=== PATIENT | female | born 1930 | race Caucasian/White ===

== ENCOUNTER → 2016-06-12 | Outpatient (CLI) | payer MEDICARE, BC ==
[~2016-06-12] MED LIST: AZIT250T6 PO; BIOT10TA2 PO; CARSR60 PO; CHOL100062 PO; COU5 PO; IOHEXOL 300MG/ML 150 ML BTL ONE; IPRA15SP NS; LORA10TA45 PO; MAGN400T27 PO; MOME0.132 INHALATION; MONT10TA21 PO; OMEG-135 PO; POLY17PO6 PO; PRED20 PO; RESTOP4 BOTH EYES; SOD CHLORIDE 0.9% 100 ML ONE; XOP15INH INH
--- NOTE | 2016-06-12 11:05 | RADRPT ---
PROCEDURE: CT Abdomen and pelvis without contrast. CLINICAL INDICATION: PERFURATION SIGMOID COLON DIVERTICULITIS TECHNIQUE: CT scan of the abdomen and pelvis with contrast was performed on a multidetector high-r esolution CT scan. . Coronal and sagittal reformatted images were obtained from the axial source i mages. Standard CT scan of the abdomen pelvis without contrast protocols were performed. The total exam CTDI equals 5.46 mGy and the total exam DLP equals 259.37 mGy-cm. One or more of the following dose reduction techniques were used: - Automated exposure control. - Adjustment of the mA and/or kV according to patient size. Use of iterative reconstruction technique. COMPARISON: None FINDINGS: The heart is normal limits in size. There are electrodes extending to the region of the right heart . No evidence pericardial effusion. There is a tiny left basilar pleural effusion. Mild scarring at the bases. The lung bases are otherwise unremarkable. There is diffuse extensive diverticular ch anges of the colon with mild induration and wall thickening of the proximal sigmoid colon consistent with mild diverticulitis. In the left lower quadrant mesentery adjacent to the proximal sigmoid co gladys on axial images 102-107 is a small approximately 2.5 cm ill-defined area of induration consisten t with panniculitis. No fluid collection to suggest abscess. No evidence of intra-abdominal free a ir. The gallbladder is distended with numerous tiny dependent calcified gallstones. No evidence of biliary ductal dilation. The liver spleen pancreas and adrenal glands are normal in size configurat ion without focal lesions. The kidneys are normal in size without hydronephrosis or ventral masses bilaterally. The urinary bladder is contracted but otherwise unremarkable. There is atherosclerotic vascular disease of the aorta and its branches but no aneurysm. There is a mild levorotatory scoli osis lower thoracic and lumbar spine. There are moderate to severe L1 and mild L2 compression fract ures the age of which is uncertain and recommend clinical correlation. There is no evidence of retr opulsion. The bones are osteopenic. There are degenerative changes lower thoracic and lumbar spine . IMPRESSION: 1. Diffuse extensive colonic diverticulosis with findings as described above consistent with mild d iverticulitis at the proximal sigmoid colon. In addition in the left lower quadrant abdominal is a small approximately 2.5 cm region of panniculitis. 2. No evidence of intra-abdominal free air or abscesses. 3. Distended gallbladder with numerous tiny dependent calcified calculi. No gallbladder wall thick ening or biliary ductal dilation. New 4. Compression fractures of the L1 and L2 vertebral bodies the age of which is uncertain. These ma y relate to osteoporosis however recommend clinical correlation. RPTAT:AAJJ Jh Xiao Physician Date Time Electronically viewed and signed by Jh Xiao Physician on 06/12/2016 11:04 BM/
== END | disposition home or self-care (01) ==
LOC: C/S 09:41
PROVIDERS: ATTEND Internal Medicine
DX: K57.90 Diverticulosis of intestine, part unspecified, without perforation or abscess without bleeding (principal); N32.89 Other specified disorders of bladder; M48.56XG Collapsed vertebra, not elsewhere classified, lumbar region, subsequent encounter for fracture with delayed healing
CPT/HCPCS: 74176; Q9967

== ENCOUNTER 2016-08-18 12:15 | Inpatient (IN) | payer MEDICARE, BC ==
[2016-08-17 15:47] VITALS: BMI 21.9
--- NOTE | 2016-08-17 21:43 | CONS ---
DATE OF ADMISSION: 08/18/2016 DATE OF CONSULTATION: 08/18/2016 MEDICAL CONSULTATION AND PREOPERATIVE HISTORY AND PHYSICAL ADMITTING DIAGNOSIS: Perforated diverticulum to the large intestine in for elective resection by Dr Pam Gamboa. HISTORY OF PRESENT ILLNESS: The patient is an 86-year-old female with paroxysmal atrial f ibrillation, sick sinus syndrome, asthma, diverticulosis who has had a perforated diverticulum of th e large intestine for the last few months. The patient was initially admitted in April, and it wa s felt that antibiotics and time were the best approach in order to avoid colostomy. The patient un derwent 8 weeks of meropenem with reduction in her pain and resolution of any infection. The patien t had no further evidence of perforation or free gas, and the patient continued to improve with furt her care. The patient has had no further fevers, chills or night sweats. The patient did have a co lonoscopy 2 days ago in anticipation of this procedure. Was found to have severe diverticulosis but no diverticulitis and a polyp. The patient did have low grade fever shortly after the procedure, b ut currently does not have any. REVIEW OF SYSTEMS: Significant for intermittent asthma symptoms, intermittent palpitations, but no change from her baseline. No fevers, chills or night sweats. No nausea, vomiting, or diarrhea. No hematuria, dysuria, or urgency. The patient does have some mild low back pain at times. The patie nt is having some allergy symptoms. PAST MEDICAL HISTORY: Moderate persistent asthma, diverticulitis/diverticulosis with recent perfora tion of the large intestine, paroxysmal atrial fibrillation, sick sinus syndrome status post permane nt pacemaker placement, gastroesophageal reflux disease, hiatal hernia, osteoporosis, lumbar and cer vical spondylosis, allergic rhinitis, venous insufficiency, sicca syndrome. PAST SURGICAL HISTORY: Status post Roman fundoplication, status post bilateral cataract extraction s, status post permanent pacemaker placement for sick sinus syndrome, status post ventral hernia rep air, status post retinal detachment repair x2, status post radioablation . FAMILY HISTORY: Noncontributory. ALLERGIES: 1. ANAPHYLAXIS TO PENICILLIN, SULFA, TIGAN, DILAUDID, ALL NUTS. 2. MODERATE ALLERGIES TO LATEX, KETEK, CEFUROXIME, ASPIRIN, CODEINE, LEVAQUIN AND IODINE. SOCIAL HISTORY: Patient is a . 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 No tobacco, no a lcohol use. MEDICATIONS: 1. Singulair 10 mg daily. 2. Pantoprazole 40 mg daily. 3. Coumadin, but this has been on hold since Sunday. 4. Diltiazem 60 mg q.i.d. 5. Magnesium oxide 250 mg daily. 6. Hydrochlorothiazide 25 mg half a tab as needed. 7. Vitamin D3 at 2000 international units daily. 8. Xopenex inhaler as needed. 9. Alavert 10 mg daily. 10. Restasis b.i.d. to both eyes. PHYSICAL EXAMINATION: VITAL SIGNS: Blood pressure 120/60, respirations 16, weight 112.5 pounds. Temperature 97.4, oxygen saturation 96%, pulse rate 66 and regular. GENERAL: Well-developed, well-nourished female in no acute distress. SKIN: Without rashes. HEENT: EOMI, PERRLA. Oropharynx clear without exudate. NECK: No jugular venous distention, 2+ carotid upstroke with soft bruit on the right. No lymphaden opathy, no thyromegaly, no jugular venous distention. CHEST: Increased expiratory phase but no wheezes, rhonchi or rales noted. HEART: Regular rate and rhythm with no murmurs, gallops or rubs. No ectopy. No S3, no S4 gallop. ABDOMEN: Reducible ventral hernia along the incision line. The epigastric area: Reducible hernia in the right mid abdomen. No rebound. No masses. Normoactive bowel sounds. GENITOURINARY: Deferred. EXTREMITIES: No cyanosis, clubbing. There is trace bilateral lower extremity edema, 2+ pulses. NEUROLOGIC: Nonfocal. RECTAL: Deferred to GI. DIAGNOSTIC DATA: Chest x-ray shows senescent changes with chronic lung disease, but no infiltrates and several thoracolumbar compression fractures. LABORATORY EXAMINATION: White blood cell count 7.2, hemoglobin 12.5, hematocrit 38.5, platelets 240 . Sodium 143, potassium 4.9, chloride 106, bicarbonate 25, glucose 104, BUN 16, creatinine 0.5, aracelis cium 9.9, total protein 6.9, albumin 4.3, AST 15, alkaline phosphatase 79, ALT 15, total bilirubin 0 .3. Urinalysis is unremarkable. EKG shows paced atrial rhythm with no acute ischemic changes. ASSESSMENT AND PLAN: 1. Perforated diverticulum of the large intestine. The patient is to get elective surgery by Dr. Glen Gamboa. It will be attempted to do laparoscopic procedure and move to open depending on what is found. The patient is an ASA class 2 anesthesia risk secondary to comorbid illnesses that are c ontrolled. The patient may proceed with the surgery as scheduled. PT and PTT were not done last we ek as the patient had been on Coumadin up until Sunday, and her Protime was 1. Her INR was 1.1 on Sunday of this week. The patient will need routine postoperative monitoring in the hospital. 2. Paroxysmal atrial fibrillation/sick sinus syndrome with pacemaker. The patient remained stable with intermittent paced rhythm. We will continue with the patient's current medications, but hold t he Coumadin until after surgery. 3. Moderate persistent asthma. This is stable. Continue with the patient's medications. 4. Allergic rhinitis, stable. Continue with the patient's Alavert and Singulair. 5. Sicca syndrome. We will continue with patient's Restasis. 6. Gastroesophageal reflux disease, stable. Continue with diet and pantoprazole. Dictated By: NADEEM HAMILTON MD SR/XAVI Conf#: [id number] DID#: [id number]
[~2016-08-18] VITALS: Ht 162.6 cm; Wt 49.0 kg
[2016-08-18] VITALS (23 sets, daily range): BP systolic 121–159; BP diastolic 47–71; PULSE 58–91; RESP 10–29; Ht 162.6 cm; Wt 49.0 kg
[~2016-08-18 12:15] MED LIST changes: +CHOL200018 PO; +CLINDAMYCIN 600 MG/50 ML D5W IVPB IVPB ONE; +DIGO125T PO; -IOHEXOL 300MG/ML 150 ML BTL ONE; +LEVA15HF6 INH; +LIDOCAINE 2% (SDV) 5 ML INJ ONE; +LORA-52 PO; +MOME0.132 IH; +MONT5TAB12 PO; -PRED20 PO; +PRED20TA PO; +ROCURONIUM 50 MG INJ ONE; -SOD CHLORIDE 0.9% 100 ML ONE; +WARF6TAB PO; -XOP15INH INH; +[UNRECOGNIZED DRUG - OTHER] PO; +metroNIDAZOLE 500 MG/100 ML NS IVPB ONE
[2016-08-18] MEDS ORDERED: metroNIDAZOLE 500 MG/NS (PMX) 100 ML IVPB ONE (13:30)
[2016-08-18 14:19] LABS: INR 0.99; PARTIAL THROMBOPLASTIN TIME 27.3 Sec (25.0-35.0); PROTIME 13.1 Sec (12.2-14.2)
[2016-08-18] MEDS ORDERED: LIDOCAINE 1% (STERILE-PAK) 30 ML INJ ONE (16:04)
[2016-08-18] MEDS ORDERED: BUPIVACAINE 0.5%/EPI (SDV) 30 ML INJ ONE (16:04)
[2016-08-18] MEDS ORDERED: ETOMIDATE 20 MG INJ ONE (16:26)
[2016-08-18] MEDS ORDERED: MIDAZOLAM 1 MG/ML 2 ML INJ ONE (16:27)
[2016-08-18] MEDS ORDERED: ZOLPIDEM 5 MG TAB PO PRN (18:30)
[2016-08-18] MEDS ORDERED: MEPERIDINE 25 MG INJ IV PRN (18:30)
[2016-08-18] MEDS ORDERED: hydrALAzine 20 MG INJ IV PRN (18:30)
[2016-08-18] MEDS ORDERED: NALOXONE (0.4 MG/ML) INJ IV PRN (18:30)
[2016-08-18] MEDS ORDERED: ONDANSETRON 4 MG INJ IV PRN ×3 (18:30→20:00)
[2016-08-18] MEDS ORDERED: EPHEDrine SULFATE 50 MG/5 ML SYG IV PRN (18:30)
[2016-08-18] MEDS ORDERED: FENTAnyl 50 MCG/ML VIAL IV PRN ×2 (18:30)
[2016-08-18] MEDS ORDERED: morphine (1 MG/ML) 10ML SYRINGE IV PRN ×3 (18:30)
[2016-08-18] MEDS ORDERED: LABETALOL HCL 20MG INJ IV PRN (18:30)
[2016-08-18] MEDS ORDERED: DIPHENHYDRAMINE 50 MG INJ IV PRN (18:30)
[2016-08-18] MEDS ORDERED: METOCLOPRAMIDE 10 MG INJ IV PRN (18:30)
[2016-08-18] MEDS ORDERED: DEXAMETHASONE 4 MG/ML 1 ML INJ ONE (19:12)
[2016-08-18] MEDS ORDERED: ONDANSETRON 4 MG INJ ONE (19:13)
[2016-08-18] MEDS: FENTAnyl 50 MCG/ML VIAL IV PRN ×2 (20:15→20:48)
[2016-08-18] MEDS: D5W-0.45 NACL + KCL 20 MEQ 1,000 ML IV SCH (23:27)
[2016-08-18] MEDS: metroNIDAZOLE 500 MG/NS (PMX) 100 ML IVPB SCH (23:56)
[2016-08-19 00:20] VITALS: BP 153/70; PULSE 60; RESP 17
[2016-08-19] MEDS: CLINDAMYCIN 600 MG/D5W (PMX) 50 ML IVPB SCH ×4 (01:26→17:41)
[2016-08-19 06:21] LABS: ADD UMIC YES; URINE BILIRUBIN (Dip) NEGATIVE (NEGATIVE); URINE BLOOD (Dip) 1+ (NEGATIVE); URINE COLOR LT. YELLOW (YELLOW); URINE GLUCOSE (Dip) NEGATIVE (NEGATIVE); URINE KETONES (Dip) 3+ (NEGATIVE); URINE LEUKOCYTE ESTERASE (Dip) TRACE (NEGATIVE); URINE NITRITE (Dip) NEGATIVE (NEGATIVE); URINE TOTAL PROTEIN (Dip) NEGATIVE (NEGATIVE); URINE UROBILINOGEN (Dip) 0.2 E.U./dL (0.1-1.0)
[2016-08-19 06:22] LABS: ADD SCAN DIFF NO
[2016-08-19] MEDS: PANTOPRAZOLE (EC) 40 MG TAB PO SCH ×2 (06:35→06:42)
[2016-08-19] MEDS: ENOXAPARIN 40 MG/0.4 ML SYG SC SCH (06:36)
[2016-08-19] MEDS ORDERED: VITAMIN A & D 5 GM OINT PACKET TOP ONE (06:37)
[2016-08-19 06:58] LABS: CALCIUM 9.5 mg/dl (8.4-10.2); CREATININE 0.47 mg/dl (0.44-1.00); POTASSIUM 4.3 mmol/L (3.5-5.1)
[2016-08-19 07:17] LABS: BACTERIA,URINE RARE; URINE RBCS 0-2 /HPF (0)
[2016-08-19] MEDS: metroNIDAZOLE 500 MG/NS (PMX) 100 ML IVPB SCH ×2 (07:46→14:33)
[2016-08-19 08:03] VITALS: BP 149/66; RESP 16
[2016-08-19] MEDS: D5W-0.45 NACL + KCL 20 MEQ 1,000 ML IV SCH (09:11)
[2016-08-19 10:49] LABS: HEMOGLOBIN 12.4 g/dl (12.0-16.0); LYMPHOCYTES # 0.7 10^3/ul (0.8-2.9); LYMPHOCYTES % 5.3 % (15.0-51.0); MEAN CORPUSCULAR HEMOGLOBIN 29.7 pg (29.0-33.0); MEAN CORPUSCULAR HGB CONC 32.6 g/dl (32.0-37.0); MEAN CORPUSCULAR VOLUME 91.1 fl (82.0-101.0); MEAN PLATELET VOLUME 10.4 fl (7.4-10.4); MONOCYTE # 0.5 10^3/ul (0.3-0.9); MONOCYTES % 3.6 % (0.0-11.0); NEUTROPHIL # 11.4 10^3/ul (1.6-7.5); NEUTROPHILS % 90.6 % (39.0-77.0); PLATELET COUNT 183 10^3/UL (140-415); RED BLOOD COUNT 4.17 10^6/ul (4.20-5.40); WHITE BLOOD COUNT 12.6 10^3/ul (4.8-10.8)
[2016-08-19] MEDS ORDERED: ACETAMINOPHEN 325 MG TAB PO PRN (11:30)
--- NOTE | 2016-08-19 12:17 | HP ---
DATE OF ADMISSION: 08/18/2016 SUBJECTIVE: The patient is status post laparoscopic partial resection of bowel. Patient is awake, alert, in minimal pain, tolerating mild clear liquid diet at this time. No nausea. VITAL SIGNS: Temperature 97.7, pulse 69, respirations 16, blood pressure is 149/66, pulse ox 100% o n room air. HEENT: Normocephalic, atraumatic. EYES: Pupils equal, round, react to light and accommodation. CARDIOVASCULAR: Regular rate and rhythm. LUNGS: Clear to auscultation bilaterally. ABDOMEN: Mild pain to palpation on the right upper and lower quadrant. No rebound tenderness. Dec reased bowel sounds. ASSESSMENT AND PLAN: 1. Perforated diverticulum with a large intestine laparoscopic resection, did very well. The patie nt has minimal pain. Patient is to try to ambulate with help today. 2. Paroxysmal atrial fibrillation, sick sinus syndrome with pacemaker. Patient normally is on Coum robert. At this time she is on Lovenox. We will restart her Coumadin tomorrow. 3. Persistent asthma, currently asymptomatic. We will restart her Xopenex at this time and patient may keep the inhaler at her bedside. LABORATORY TESTS: Creatinine 0.47 and BUN is at 8. CBC pending. Dictated By: RADHA GONZALEZ/XAVI Conf#: [id number] DID#: [id number]
[2016-08-19] MEDS: DILTIAZEM 30 MG TAB PO SCH ×3 (14:32→20:43)
[2016-08-19 14:34] VITALS: BP 145/64; PULSE 62; RESP 18
[2016-08-19] MEDS: ACETAMINOPHEN 650MG/20.3ML CUP PO PRN (14:39)
[2016-08-19] MEDS: LEVALBUTEROL (HFA) 15 GM INHALER INH SCH (16:51)
[2016-08-19 17:36] VITALS: BP 145/100; PULSE 62
--- NOTE | 2016-08-19 18:03 | PN ---
Date/Time of Note Date/Time of Note DATE: 08/19/16 TIME: 18:00 Assessment/Plan Lines/Catheters IV Catheter Type (from [facility]): Peripheral IV Simons in Place (from [facility]): No Assessment/Plan Chief Complaint/Hosp Course 1. Microperforated diverticulitis hx with mills diverticulosis s/p lap low anterior resection 08/18 -oob/ambulate -chew gum -liquids 2. Anemia without evidence of acute blood loss -Monitor 3. Paroxysmal atrial fibrillation currently in sinus. -Optimize electrolytes 4. GERD -Diet and lifestyle optimization -PPI 5. Asthma -Medical optimization 6. Hypertension -Nutrition and medication optimization 7. Back pain with Vertebral compression fracture -Physical therapy -Pain control 8. History of sick sinus syndrome status post pacemaker -Cardiac optimization 9. Paralytic ileus. Improving. -oob/ambulate -chew gum Thank you, Problems: Subjective 24 Hr Interval Summary s/p Lap LAR 08/18. Min pain. No f/c. No n/v. No cp/sob. No cough. No steiner/ dizzy/visual or neuro changes. Simons removed with +leukocyte esterase. Flatus. Exam/Review of Systems Vital Signs Vitals Vital Signs Date Time Temp Pulse Resp B/P Pulse Ox O2 Delivery O2 Flow Rate FiO2 08/19/16 17:36 62 145/100 08/19/16 14:34 97.8 18 98 Room Air 08/19/16 08:00 2.0 Intake and Output 08/18/16 08/18/16 08/19/16 15:00 23:00 07:00 Intake Total 690 ml Output Total 200 ml 980 ml Balance -200 ml -290 ml Exam Free Text/Dictation Constitutional: alert, oriented, No distress Psych: anxiety, No confusion Head: atraumatic, normocephalic Eyes: EOMI, PERRL, nl conjunctiva, No icteric ENMT: mucosa pink and moist, nl external ears & nose, nl lips & teeth Neck: non-tender, No jvd Respiratory: normal air movement, No congested cough, No labored breathing Cardiovascular: regular rate and rhythm, No edema Gastrointestinal: soft, minimal tenderness without rebound or guarding, not rigid Musculoskeletal: nl extremities to inspection, nl gait and stance, No joint tenderness Extremities: normal pulses, No calf tenderness, No cyanosis, No edema Neurological: nl mental status, nl speech, nl strength Skin: nl turgor, No diaphoresis, No rash or lesions Lymph: nl lymph nodes Results Result Diagram: 08/19/16 0448 08/19/16 0448 KARRIE WEST MD Aug 19, 2016 18:03 KARRIE WEST MD Aug 19, 2016 18:03
[2016-08-19 19:05] VITALS: BP 129/60; RESP 18
[2016-08-19] MEDS: MOMETASONE 0.24 GM INHALER INH SCH (20:43)
[2016-08-19] MEDS: MONTELUKAST 10 MG TAB PO SCH (20:43)
[2016-08-20] MEDS: D5W-0.45 NACL + KCL 20 MEQ 1,000 ML IV SCH ×2 (01:41→11:51)
[2016-08-20] MEDS: CLINDAMYCIN 600 MG/D5W (PMX) 50 ML IVPB SCH ×4 (01:46→18:10)
[2016-08-20] MEDS: ACETAMINOPHEN 650MG/20.3ML CUP PO PRN ×2 (04:04→16:49)
[2016-08-20] MEDS: ENOXAPARIN 40 MG/0.4 ML SYG SC SCH (06:34)
[2016-08-20] MEDS: PANTOPRAZOLE (EC) 40 MG TAB PO SCH (06:36)
[2016-08-20 08:05] VITALS: BP 138/61; RESP 16
[2016-08-20] MEDS: LEVALBUTEROL (HFA) 15 GM INHALER INH SCH ×3 (09:11→16:49)
[2016-08-20] MEDS: MOMETASONE 0.24 GM INHALER INH SCH ×2 (09:11→21:55)
[2016-08-20] MEDS: DILTIAZEM 30 MG TAB PO SCH ×4 (09:12→21:54)
[2016-08-20] MEDS: LORATADINE 10 MG TAB PO SCH (12:52)
[2016-08-20 20:16] VITALS: BP 116/56; RESP 20
[2016-08-20] MEDS: MONTELUKAST 10 MG TAB PO SCH (21:54)
[2016-08-20] MEDS: FLUTICASONE 0.05% 16 GM NAS SPRAY NASAL SCH (21:55)
[2016-08-21] MEDS: LEVALBUTEROL (HFA) 15 GM INHALER INH SCH ×4 (01:19→16:00)
[2016-08-21] MEDS: ACETAMINOPHEN 650MG/20.3ML CUP PO PRN ×2 (01:30→10:18)
[2016-08-21 05:18] LABS: ADD SCAN DIFF NO
[2016-08-21 05:32] LABS: BASOPHILS % 0.3 % (0.0-2.0); EOSINOPHILS % 0.3 % (0.0-7.0); HEMATOCRIT 34.4 % (37.0-47.0); HEMOGLOBIN 11.2 g/dl (12.0-16.0); LYMPHOCYTES # 2.4 10^3/ul (0.8-2.9); LYMPHOCYTES % 27.3 % (15.0-51.0); MEAN CORPUSCULAR HEMOGLOBIN 29.2 pg (29.0-33.0); MEAN CORPUSCULAR HGB CONC 32.6 g/dl (32.0-37.0); MEAN CORPUSCULAR VOLUME 89.6 fl (82.0-101.0); MEAN PLATELET VOLUME 10.7 fl (7.4-10.4); MONOCYTE # 0.9 10^3/ul (0.3-0.9); MONOCYTES % 9.7 % (0.0-11.0); NEUTROPHIL # 5.4 10^3/ul (1.6-7.5); NEUTROPHILS % 62.1 % (39.0-77.0); PLATELET COUNT 183 10^3/UL (140-415); RED BLOOD COUNT 3.84 10^6/ul (4.20-5.40); RED CELL DISTRIBUTION WIDTH 14.7 % (11.5-14.5); WHITE BLOOD COUNT 8.8 10^3/ul (4.8-10.8)
[2016-08-21 05:50] LABS: POTASSIUM 3.5 mmol/L (3.5-5.1)
[2016-08-21 05:53] LABS: CREATININE 0.5 mg/dl (0.44-1.00)
[2016-08-21 05:54] LABS: CALCIUM 9.4 mg/dl (8.4-10.2)
[2016-08-21] MEDS: PANTOPRAZOLE (EC) 40 MG TAB PO SCH (06:32)
[2016-08-21] MEDS: ENOXAPARIN 40 MG/0.4 ML SYG SC SCH (06:36)
[2016-08-21 07:39] VITALS: BP 140/65; RESP 18
--- NOTE | 2016-08-21 09:56 | PN ---
Date/Time of Note Date/Time of Note DATE: 08/20/16 TIME: 19:55 Assessment/Plan Lines/Catheters IV Catheter Type (from Nrs): Saline Lock Simons in Place (from Nrs): No Assessment/Plan Chief Complaint/Hosp Course 1. Microperforated diverticulitis hx with mills diverticulosis s/p lap low anterior resection 08/18 -oob/ambulate -chew gum -liquids 2. Anemia without evidence of acute blood loss -Monitor 3. Paroxysmal atrial fibrillation currently in sinus. -Optimize electrolytes 4. GERD -Diet and lifestyle optimization -PPI 5. Asthma -Medical optimization 6. Hypertension -Nutrition and medication optimization 7. Back pain with Vertebral compression fracture -Physical therapy -Pain control 8. History of sick sinus syndrome status post pacemaker -Cardiac optimization 9. Paralytic ileus. Improving. -oob/ambulate -chew gum -advance diet as tolerated Thank you, Late entry 08/20 Problems: Subjective 24 Hr Interval Summary Min pain. No f/c. No n/v. No cp/sob. No cough. No steiner/dizzy/visual or neuro changes. Lots of Flatus. Exam/Review of Systems Vital Signs Vitals Vital Signs Date Time Temp Pulse Resp B/P Pulse Ox O2 Delivery O2 Flow Rate FiO2 08/21/16 07:39 97.9 64 18 140/65 98 08/19/16 14:34 Room Air 08/19/16 08:00 2.0 Intake and Output 08/20/16 08/20/16 08/21/16 15:00 23:00 07:00 Intake Total 850 ml 570 ml 400 ml Output Total 900 ml 920 ml Balance 850 ml -330 ml -520 ml Exam Free Text/Dictation Constitutional: alert, oriented, No distress Psych: anxiety, No confusion Head: atraumatic, normocephalic Eyes: EOMI, PERRL, nl conjunctiva, No icteric ENMT: mucosa pink and moist, nl external ears & nose, nl lips & teeth Neck: non-tender, No jvd Respiratory: normal air movement, No congested cough, No labored breathing Cardiovascular: regular rate and rhythm, No edema Gastrointestinal: soft, minimal tenderness without rebound or guarding, not rigid Musculoskeletal: nl extremities to inspection, nl gait and stance, No joint tenderness Extremities: normal pulses, No calf tenderness, No cyanosis, No edema Neurological: nl mental status, nl speech, nl strength Skin: nl turgor, No diaphoresis, No rash or lesions Lymph: nl lymph nodes Results Result Diagram: 08/21/16 0501 08/21/16 0501 KARRIE WEST MD August 21, 2016 09:56
--- NOTE | 2016-08-21 09:58 | PN ---
Date/Time of Note Date/Time of Note DATE: 08/21/16 TIME: 09:56 Assessment/Plan Lines/Catheters IV Catheter Type (from Nrs): Saline Lock Simons in Place (from Nrs): No Assessment/Plan Chief Complaint/Hosp Course 1. Microperforated diverticulitis hx with mills diverticulosis s/p lap low anterior resection 08/18 -oob/ambulate -chew gum -soft diet -dc planning per medical team ok from surgical standpoint 2. Anemia without evidence of acute blood loss -Monitor 3. Paroxysmal atrial fibrillation currently in sinus. -Optimize electrolytes 4. GERD -Diet and lifestyle optimization -PPI 5. Asthma -Medical optimization 6. Hypertension -Nutrition and medication optimization 7. Back pain with Vertebral compression fracture -Physical therapy -Pain control -Ice pack to abdominal wall prn pain/swelling. 8. History of sick sinus syndrome status post pacemaker -Cardiac optimization 9. Paralytic ileus. Improving. -oob/ambulate -chew gum -advance diet as tolerated Thank you, Problems: Subjective 24 Hr Interval Summary Lots of flatus. Min pain. No f/c. No n/v. No cp/sob. No cough. No steiner/dizzy /visual or neuro changes. Exam/Review of Systems Vital Signs Vitals Vital Signs Date Time Temp Pulse Resp B/P Pulse Ox O2 Delivery O2 Flow Rate FiO2 08/21/16 07:39 97.9 64 18 140/65 98 08/19/16 14:34 Room Air 08/19/16 08:00 2.0 Intake and Output 08/20/16 08/20/16 08/21/16 15:00 23:00 07:00 Intake Total 850 ml 570 ml 400 ml Output Total 900 ml 920 ml Balance 850 ml -330 ml -520 ml Exam Free Text/Dictation Constitutional: alert, oriented, No distress Psych: anxiety, No confusion Head: atraumatic, normocephalic Eyes: EOMI, PERRL, nl conjunctiva, No icteric ENMT: mucosa pink and moist, nl external ears & nose, nl lips & teeth Neck: non-tender, No jvd Respiratory: normal air movement, No congested cough, No labored breathing Cardiovascular: regular rate and rhythm, No edema Gastrointestinal: soft, minimal tenderness without rebound or guarding, not rigid Musculoskeletal: nl extremities to inspection, nl gait and stance, No joint tenderness Extremities: normal pulses, No calf tenderness, No cyanosis, No edema Neurological: nl mental status, nl speech, nl strength Skin: nl turgor, No diaphoresis, No rash or lesions Lymph: nl lymph nodes Results Result Diagram: 08/21/16 0501 08/21/16 0501 KARRIE WEST MD August 21, 2016 09:58
[2016-08-21] MEDS: MOMETASONE 0.24 GM INHALER INH SCH ×2 (10:19→21:38)
[2016-08-21] MEDS: FLUTICASONE 0.05% 16 GM NAS SPRAY NASAL SCH ×2 (10:21→21:39)
[2016-08-21] MEDS: DILTIAZEM 30 MG TAB PO SCH ×4 (10:22→21:39)
[2016-08-21] MEDS: LORATADINE 10 MG TAB PO SCH (10:22)
[2016-08-21] MEDS: morphine 2 MG INJ IV PRN (13:48)
--- NOTE | 2016-08-21 15:12 | HPN ---
Date/Time of Note Date/Time of Note DATE: 08/18/16 TIME: 16:12 Interval H&P Admission Note Pt. seen H&P reviewed: No system changes KARRIE WEST MD Aug 18, 2016 16:12
--- NOTE | 2016-08-21 15:13 | OPR ---
Date/Time of Note Date/Time of Note DATE: 08/18/16 TIME: 20:07 Operative Report Procedure Date: Aug 18, 2016 Preoperative Diagnosis Pancolonic diverticulosis with history of diverticulitis in microperforation of the left side Postoperative Diagnosis Same Operation Performed 1. Laparoscopic sigmoid and low anterior resection 2. Laparoscopic mobilization of splenic flexure 3. Rigid sigmoidoscopy 4. Local anesthetic [place], [id number] 5. Laparoscopic guided bilateral transversus abdominis plane block Surgeon: KARRIE WEST MD Anesthesia: general (Plus local plus regional) Anesthesiologist: MICHELINE OGDEN Estimated Blood Loss: 0 - 10 ml's Specimens Left colon with suture proximal Tubes/Drains None Complications: None Pt Condition Post Procedure: stable Disposition: PACU Indications History of perforated diverticulitis here for elective left colon resection. Risks include but are not limited to bleeding, infection, abscess, seroma, leak , damage to intestines or any intra-abdominal/intrapelvic structures, hernia formation, chronic pain, need for re-operations or further surgeries, NV, stroke , PE, DVT, pneumonia, organ failures, or even . Also risk of recurrent diverticulitis with perforation. Operative\Procedure Findings Adhesions of omentum and bowel to anterior abdominal wall through her previous incision. Pancolonic diverticulosis. Right lower quadrant hernia. Right femoral hernia Left inguinal hernia Left upper quadrant hernia could not be easily identified since there was adhesions of bowel and omentum to that site. Procedure Description Patient was brought into the operating room, placed supine on the operating table, SCDs were placed, right arm was tucked, all pressure points were well- padded, preoperative antibiotics administered, and after induction of anesthesia , patient was placed in the lithotomy. Simons was inserted. Patient was then prepped and draped in usual sterile fashion, and timeout was performed. Incision was made in the right upper quadrant, and using an Optiview port and 5 mm 0 scope abdomen was safely entered and insufflated to 15 mmHg with CO2. Laparoscopy was performed and no injuries were identified. There was adhesions of omentum and bowel to the anterior abdominal wall superiorly at site of previous incision and mesh. Under direct visualization another 5 mm port was placed in the right lower quadrant a 12 mm port was placed in the right lower lateral quadrant. Eventually GelPort in quadrant. Patient was placed in Trendelenburg and left side up. Using LigaSure and scissor colon was mobilized off of the left lateral wall in the avascular plane fully mobilizing the left colon the sigmoid and the upper rectum. The medial mesentery was opened and the left colon, sigmoid and the upper rectum beyond the peritoneal reflection. There was mills colonic diverticulosis. However the area of most inflammatory changes were is identified. The mesentery was sequentially taken using LigaSure with complete hemostasis. The colon proximal and distal to the most abnormal area was transected with Endo DARREN echelon 60 mm blue staplers. After full resection of the diseased segment of the sigmoid and the left colon below the peritoneal reflection suture was placed on the proximal colon. The resected colon was exteriorized and sent to pathology. To allow easy reach of the proximal colon into the rectum splenic mobilization was performed with ligature taking the left colon and the splenic flexure off of the spleen and greater omentum. This gave us extra reach. The proximal colon was exteriorized through the GelPort and the pursestring device was used to place a pursestring suture. EEA anvil 29 size was placed in the proximal colon and secured safely. The proximal colon and anvil were placed back in the abdomen GelPort applied and abdomen was reinsufflated. EEA stapler was placed through the rectum into the rectal stump after sizers were used. Circular staple anastomosis was created after the animal was attached to the stapler. Full doughnuts were identified and sent to pathology. The colon was not twisted. There was complete hemostasis. Saline was instilled into the pelvis covering the anastomosis and the colon was clamped proximally. Rigid sigmoidoscopy was performed up to the anastomosis and no bleeding was identified. There was no leak of air through the anastomosis with good distention of the bowel under saline. This will rigid sigmoidoscopy was removed and the saline was suctioned out. 12 mm port fascia was closed with Endo Close and 0 Vicryl in a [id number] manner. Candido retractor was removed wound was irrigated and the fascial defect was closed with interrupted oh Vicryls in a [id number] manner with Endo Close. Ports and CO2 were removed under direct visualization, wounds were fully irrigated, and skin was closed in subcuticular fashion using 4-0 Monocryl. The right lower quadrant incision was closed in multiple layers. After the fascial closer there was an interrupted subcutaneous 2-0 Vicryl closures followed by 4-0 Monocryl subcuticular. Dermabond was applied. All counts were correct and the end of the operation 2. Patient was extubated and transferred to recovery room in stable condition. Copies To: CC: ISMA CABEZAS MD; NADEEM HAMILTON MD- KARRIE WEST MD Aug 18, 2016 20:09
--- NOTE | 2016-08-21 16:32 | PN ---
DATE: 08/21/2016 SUBJECTIVE: The patient complains of some abdominal pain, but otherwise is feeling well. OBJECTIVE VITAL SIGNS: Temperature 97.9, pulse 64 and regular, respirations 18, blood pressure 140/65, oxygen saturation 98% on room air. GENERAL: Well-developed, well-nourished female in no acute distress, lying in bed. SKIN: Without rashes. CHEST: Clear to auscultation bilaterally, otherwise clear. HEART: Regular rate and rhythm. No ectopy. ABDOMEN: Decreased bowel sounds. Soft, nondistended, moderate tenderness along the larger incision in the left mid abdomen with minimal erythema, no drainage. NEUROLOGIC: Nonfocal. EXTREMITIES: No cyanosis, clubbing or edema. LABORATORY DATA: White blood cell count 8.8, hemoglobin 11.2, hematocrit 34.4, platelets 183. Sodi um 140, potassium 3.5, chloride 108, bicarbonate 23, BUN of 6, creatinine 0.5, glucose 85, calcium 9 .4. IMPRESSION AND PLAN: 1. Status post laparoscopic partial colectomy for perforated diverticulitis. Patient is doing well and tolerating her diet. We will continue with p.r.n. pain medications, ambulation and advancing d iet. 2. Asthma, stable. Continue with medications. 3. Paroxysmal atrial fibrillation. Stable. We will restart patient's Coumadin and continue Loveno x for now. Dictated By: NADEEM HAMILTON MD, SR/XAVI Conf#: [id number] DID#: [id number]
[2016-08-21] MEDS ORDERED: WARFARIN 5 MG TAB NGT ONE (17:00)
[2016-08-21 19:43] VITALS: BP 125/62; RESP 16
[2016-08-21] MEDS: MONTELUKAST 10 MG TAB PO SCH (21:39)
[2016-08-22] MEDS: morphine 2 MG INJ IV PRN (01:07)
[2016-08-22 05:37] LABS: ADD SCAN DIFF NO
[2016-08-22 05:42] LABS: BASOPHILS % 0.4 % (0.0-2.0); EOSINOPHILS # 0.2 10^3/ul (0.0-0.5); EOSINOPHILS % 2.2 % (0.0-7.0); HEMOGLOBIN 10.9 g/dl (12.0-16.0); LYMPHOCYTES # 2.2 10^3/ul (0.8-2.9); LYMPHOCYTES % 32.5 % (15.0-51.0); MEAN CORPUSCULAR HEMOGLOBIN 29.3 pg (29.0-33.0); MEAN CORPUSCULAR HGB CONC 32.1 g/dl (32.0-37.0); MEAN CORPUSCULAR VOLUME 91.4 fl (82.0-101.0); MEAN PLATELET VOLUME 11.1 fl (7.4-10.4); MONOCYTE # 0.6 10^3/ul (0.3-0.9); MONOCYTES % 9.3 % (0.0-11.0); NEUTROPHIL # 3.8 10^3/ul (1.6-7.5); NEUTROPHILS % 55.2 % (39.0-77.0); PLATELET COUNT 181 10^3/UL (140-415); RED BLOOD COUNT 3.72 10^6/ul (4.20-5.40); RED CELL DISTRIBUTION WIDTH 14.9 % (11.5-14.5); WHITE BLOOD COUNT 6.9 10^3/ul (4.8-10.8)
[2016-08-22 06:03] LABS: INR 1.07; PROTIME 13.9 Sec (12.2-14.2); PT RATIO 1.1
[2016-08-22 06:15] LABS: CALCIUM 9.5 mg/dl (8.4-10.2); CREATININE 0.48 mg/dl (0.44-1.00); MAGNESIUM 1.9 mg/dl (1.7-2.5)
[2016-08-22] MEDS: PANTOPRAZOLE (EC) 40 MG TAB PO SCH (06:24)
[2016-08-22] MEDS: ENOXAPARIN 40 MG/0.4 ML SYG SC SCH (06:26)
[2016-08-22 08:30] VITALS: BP 150/68; RESP 18
[2016-08-22] MEDS: DILTIAZEM 30 MG TAB PO SCH ×4 (09:02→22:14)
[2016-08-22] MEDS: LORATADINE 10 MG TAB PO SCH (09:03)
[2016-08-22] MEDS: FLUTICASONE 0.05% 16 GM NAS SPRAY NASAL SCH ×2 (09:03→22:13)
[2016-08-22] MEDS: MOMETASONE 0.24 GM INHALER INH SCH ×2 (09:03→22:13)
[2016-08-22] MEDS: LEVALBUTEROL (HFA) 15 GM INHALER INH SCH ×3 (09:03→16:00)
--- NOTE | 2016-08-22 10:44 | PN ---
DATE: 08/22/2016 MEDICAL PROGRESS NOTE SUBJECTIVE: The patient is feeling better, less abdominal pain. Good appetite. Passing gas, but n o bowel movement. OBJECTIVE: VITAL SIGNS: Temperature 98.0, pulse 62 and regular, respirations 18, blood pressure 150/68, oxygen saturation 97% on room air. GENERAL: Well-developed, well-nourished female in no acute distress, sitting in a chair. LUNGS: Clear to auscultation bilaterally. HEART: Regular rate and rhythm. No ectopy. ABDOMEN: Positive bowel sounds, nondistended. Mild to moderate tenderness at the left mid abdomen incision, minimal erythema, no drainage. EXTREMITIES: No cyanosis, clubbing or edema. NEUROLOGIC: Nonfocal. LABORATORY DATA: White blood cell count 6.9, hemoglobin 10.9, hematocrit 34, platelets 181. INR 1. 07. Sodium 138, potassium 4.0, chloride 110, bicarbonate 25, BUN of 8, creatinine 0.48, blood sugar 88, magnesium 1.9, calcium 9.5. ASSESSMENT AND PLAN 1. Status post laparoscopic partial colectomy for diverticulitis with perforation. The patient con tinues to do well and will continue with diet, ambulation and analgesics. 2. Paroxysmal atrial fibrillation, remains stable. We will give 7.5 mg of Coumadin today and follo w the INR. 3. Asthma remains stable. Continue her medications and p.r.n. Xopenex. 4. Allergic rhinitis. Continue the patient's medications. 5. Sicca syndrome. We will continue patient's Restasis. 6. Gastroesophageal reflux disease. We will continue the patient's medications. Dictated By: NADEEM HAMILTON MD, SR/XAVI Conf#: [id number] DID#: [id number]
--- NOTE | 2016-08-22 16:49 | PN ---
Date/Time of Note Date/Time of Note DATE: 08/22/16 TIME: 16:48 Assessment/Plan Lines/Catheters IV Catheter Type (from Nrsg): Saline Lock Simons in Place (from Nrsg): No Assessment/Plan Chief Complaint/Hosp Course 1. Microperforated diverticulitis hx with mills diverticulosis s/p lap low anterior resection 08/18 -oob/ambulate -chew gum -soft diet -dc planning per medical team ok from surgical standpoint 2. Anemia without evidence of acute blood loss -Monitor 3. Paroxysmal atrial fibrillation currently in sinus. -Optimize electrolytes 4. GERD -Diet and lifestyle optimization -PPI 5. Asthma -Medical optimization 6. Hypertension -Nutrition and medication optimization 7. Back pain with Vertebral compression fracture -Physical therapy -Pain control -Ice pack to abdominal wall prn pain/swelling. 8. History of sick sinus syndrome status post pacemaker -Cardiac optimization 9. Paralytic ileus. Improving. -oob/ambulate -chew gum -advance diet as tolerated Thank you, Problems: Subjective 24 Hr Interval Summary Bowel function. Min pain. No f/c. No n/v. No cp/sob. No cough. No steiner/dizzy /visual or neuro changes. Exam/Review of Systems Vital Signs Vitals Vital Signs Date Time Temp Pulse Resp B/P Pulse Ox O2 Delivery O2 Flow Rate FiO2 08/22/16 08:30 98.0 62 18 150/68 97 08/19/16 14:34 Room Air 08/19/16 08:00 2.0 Intake and Output 08/21/16 08/21/16 08/22/16 15:00 23:00 07:00 Intake Total 700 ml 400 ml Output Total 650 ml Balance 700 ml -250 ml Exam Free Text/Dictation Constitutional: alert, oriented, No distress Psych: anxiety, No confusion Head: atraumatic, normocephalic Eyes: EOMI, PERRL, nl conjunctiva, No icteric ENMT: mucosa pink and moist, nl external ears & nose, nl lips & teeth Neck: non-tender, No jvd Respiratory: normal air movement, No congested cough, No labored breathing Cardiovascular: regular rate and rhythm, No edema Gastrointestinal: soft, minimal tenderness without rebound or guarding, not rigid Musculoskeletal: nl extremities to inspection, nl gait and stance, No joint tenderness Extremities: normal pulses, No calf tenderness, No cyanosis, No edema Neurological: nl mental status, nl speech, nl strength Skin: nl turgor, No diaphoresis, No rash or lesions Lymph: nl lymph nodes Results Result Diagram: 08/22/16 0435 08/22/16 0435 KARRIE WEST MD August 22, 2016 16:48
[2016-08-22] MEDS ORDERED: WARFARIN 7.5 MG TAB GTB ONE (17:00)
[2016-08-22 18:39] VITALS: BP 119/57; PULSE 63
[2016-08-22 21:25] VITALS: BP 127/60; RESP 20
[2016-08-22] MEDS: ACETAMINOPHEN 650MG/20.3ML CUP PO PRN (22:13)
[2016-08-22] MEDS: MONTELUKAST 10 MG TAB PO SCH (22:13)
[2016-08-23 05:27] LABS: ADD SCAN DIFF NO
[2016-08-23 05:46] LABS: INR 1.16; PROTIME 14.9 Sec (12.2-14.2); PT RATIO 1.2
[2016-08-23 05:53] LABS: POTASSIUM 3.9 mmol/L (3.5-5.1)
[2016-08-23 05:55] LABS: CREATININE 0.48 mg/dl (0.44-1.00)
[2016-08-23 05:56] LABS: CALCIUM 9.6 mg/dl (8.4-10.2)
[2016-08-23 06:24] LABS: BASOPHILS % 0.5 % (0.0-2.0); EOSINOPHILS # 0.2 10^3/ul (0.0-0.5); EOSINOPHILS % 3.6 % (0.0-7.0); HEMOGLOBIN 11.3 g/dl (12.0-16.0); LYMPHOCYTES # 2.2 10^3/ul (0.8-2.9); LYMPHOCYTES % 33.2 % (15.0-51.0); MEAN CORPUSCULAR HEMOGLOBIN 29.4 pg (29.0-33.0); MEAN CORPUSCULAR HGB CONC 32.3 g/dl (32.0-37.0); MEAN CORPUSCULAR VOLUME 90.9 fl (82.0-101.0); MEAN PLATELET VOLUME 11.2 fl (7.4-10.4); MONOCYTE # 0.7 10^3/ul (0.3-0.9); MONOCYTES % 9.8 % (0.0-11.0); NEUTROPHIL # 3.5 10^3/ul (1.6-7.5); NEUTROPHILS % 52.4 % (39.0-77.0); PLATELET COUNT 186 10^3/UL (140-415); RED BLOOD COUNT 3.85 10^6/ul (4.20-5.40); RED CELL DISTRIBUTION WIDTH 14.9 % (11.5-14.5); WHITE BLOOD COUNT 6.7 10^3/ul (4.8-10.8)
[2016-08-23] MEDS: PANTOPRAZOLE (EC) 40 MG TAB PO SCH (06:29)
[2016-08-23] MEDS: ENOXAPARIN 40 MG/0.4 ML SYG SC SCH (06:31)
[2016-08-23 08:40] VITALS: BP 126/66
[2016-08-23] MEDS: LORATADINE 10 MG TAB PO SCH (09:46)
[2016-08-23] MEDS: LEVALBUTEROL (HFA) 15 GM INHALER INH SCH ×3 (09:47→16:00)
[2016-08-23] MEDS: MOMETASONE 0.24 GM INHALER INH SCH ×2 (09:47→21:11)
[2016-08-23] MEDS: DILTIAZEM 30 MG TAB PO SCH ×4 (09:47→21:00)
[2016-08-23] MEDS: FLUTICASONE 0.05% 16 GM NAS SPRAY NASAL SCH ×2 (09:48→21:12)
--- NOTE | 2016-08-23 13:48 | PN ---
DATE: 08/23/2016 SUBJECTIVE: The patient is feeling better, less abdominal pain, intermittent cough, intermittent pa lpitations. OBJECTIVE: VITAL SIGNS: Temperature 98.7, blood pressure 126/66, pulse 70, oxygen saturation 96% on room air. GENERAL: Well-developed, well-nourished female in no acute distress, sitting in chair. LUNGS: Clear to auscultation bilaterally with increased expiratory phase. HEART: Regular rate and rhythm. ABDOMEN: Soft, nondistended, mild incisional tenderness, positive bowel sounds. EXTREMITIES: No cyanosis, clubbing or edema. NEUROLOGIC: Nonfocal. LABORATORY DATA: White blood cell count 6.7, hemoglobin 11.3, hematocrit 35.0, platelets 186. Sodi um 141, potassium 3.9, chloride 109, bicarbonate 24, BUN 9, creatinine 0.48, blood sugar of 89, magn esium 2.0. INR 1.16. ASSESSMENT AND PLAN: 1. Diverticulitis status post laparoscopic partial colectomy. The patient continues to improve wit h advanced diet. We will continue with ambulation, diet and p.r.n. analgesics. 2. Paroxysmal atrial fibrillation, remains stable. Will continue with Lovenox until patient is the rapeutic with the Coumadin. We will give 6 mg of Coumadin today. 3. Asthma, stable. Continue with patient's medications. 4. Gastroesophageal reflux disease. Continue with patient's Protonix and diet. 5. Sicca syndrome. Continue patient's Restasis. Dictated By: NADEEM HAMILTON MD, SR/XAVI Conf#: [id number] DID#: [id number]
[2016-08-23] MEDS ORDERED: WARFARIN 3 MG TAB PO ONE (17:00)
[2016-08-23 18:45] VITALS: BP 139/56; PULSE 78; RESP 18
[2016-08-23] MEDS: morphine 2 MG INJ IV PRN (18:45)
[2016-08-23 19:34] VITALS: BP 126/58; RESP 20
[2016-08-23 20:21] VITALS: PULSE 130
--- NOTE | 2016-08-23 20:48 | PN ---
Date/Time of Note Date/Time of Note DATE: 08/23/16 TIME: 20:46 Assessment/Plan Lines/Catheters IV Catheter Type (from Nrs): Saline Lock Simons in Place (from Nrsg): No Assessment/Plan Chief Complaint/Hosp Course 1. Microperforated diverticulitis hx with mills diverticulosis s/p lap low anterior resection 08/18 -diet -judicious fluid management 2. Anemia without evidence of acute blood loss -Monitor 3. Paroxysmal atrial fibrillation, rapid AFib now -Optimize electrolytes -Judicious fluids -Cardiac w/u with Cardiology 4. GERD -Diet and lifestyle optimization -PPI 5. Asthma -Medical optimization 6. Hypertension -Nutrition and medication optimization 7. Back pain with Vertebral compression fracture -Physical therapy -Pain control -Ice pack to abdominal wall prn pain/swelling. 8. History of sick sinus syndrome status post pacemaker -Cardiac optimization 9. Paralytic ileus. Improving. -oob/ambulate -chew gum -advance diet as tolerated Thank you, Problems: Subjective 24 Hr Interval Summary Feels funny and chest pressure. EKG showing Rapid Afib. Being transferred to [facility]. Bowel movements and flatus. Min pain improved. No f/c. No n/v. No cp/ sob. No cough. No steiner/dizzy/visual or neuro changes. Exam/Review of Systems Vital Signs Vitals Vital Signs Date Time Temp Pulse Resp B/P Pulse Ox O2 Delivery O2 Flow Rate FiO2 08/23/16 19:34 97.6 100 20 126/58 98 08/19/16 14:34 Room Air 08/19/16 08:00 2.0 Intake and Output 08/22/16 08/22/16 08/23/16 15:00 23:00 07:00 Intake Total 960 ml 550 ml Output Total 750 ml Balance 960 ml -200 ml Exam Free Text/Dictation Constitutional: alert, oriented, No distress Psych: anxiety, No confusion Head: atraumatic, normocephalic Eyes: EOMI, PERRL, nl conjunctiva, No icteric ENMT: mucosa pink and moist, nl external ears & nose, nl lips & teeth Neck: non-tender, No jvd Respiratory: normal air movement, No congested cough, No labored breathing Cardiovascular: irregular rate and rhythm, No edema Gastrointestinal: soft, minimal tenderness without rebound or guarding, not rigid Musculoskeletal: nl extremities to inspection, nl gait and stance, No joint tenderness Extremities: normal pulses, No calf tenderness, No cyanosis, No edema Neurological: nl mental status, nl speech, nl strength Skin: nl turgor, No diaphoresis, No rash or lesions Lymph: nl lymph nodes Results Result Diagram: 08/23/16 0503 08/23/16 0503 KARRIE WEST MD August 23, 2016 20:48
[2016-08-23 21:07] LABS: ADD SCAN DIFF NO
[2016-08-23 21:09] LABS: BASOPHILS % 0.5 % (0.0-2.0); EOSINOPHILS # 0.3 10^3/ul (0.0-0.5); EOSINOPHILS % 4.6 % (0.0-7.0); HEMATOCRIT 33.5 % (37.0-47.0); LYMPHOCYTES # 1.9 10^3/ul (0.8-2.9); LYMPHOCYTES % 29.7 % (15.0-51.0); MEAN CORPUSCULAR HEMOGLOBIN 29.9 pg (29.0-33.0); MEAN CORPUSCULAR HGB CONC 32.8 g/dl (32.0-37.0); MEAN PLATELET VOLUME 10.6 fl (7.4-10.4); MONOCYTE # 0.6 10^3/ul (0.3-0.9); MONOCYTES % 9.9 % (0.0-11.0); NEUTROPHIL # 3.5 10^3/ul (1.6-7.5); NEUTROPHILS % 54.7 % (39.0-77.0); PLATELET COUNT 192 10^3/UL (140-415); RED BLOOD COUNT 3.68 10^6/ul (4.20-5.40); RED CELL DISTRIBUTION WIDTH 14.8 % (11.5-14.5); WHITE BLOOD COUNT 6.5 10^3/ul (4.8-10.8)
[2016-08-23] MEDS: MONTELUKAST 10 MG TAB PO SCH (21:18)
[2016-08-23 21:30] VITALS: BP 97/57; PULSE 98; RESP 22
[2016-08-23 21:41] LABS: ALBUMIN 2.9 g/dl (3.3-4.9)
[2016-08-23 21:42] LABS: POTASSIUM 3.9 mmol/L (3.5-5.1)
[2016-08-23 21:44] LABS: ALBUMIN/GLOBULIN RATIO 1.26; BILIRUBIN,INDIRECT 0.1 mg/dl (0-1.1); BILIRUBIN,TOTAL 0.1 mg/dl (0.2-1.3); CREATININE 0.52 mg/dl (0.44-1.00); TOTAL PROTEIN 5.2 g/dl (6.1-8.1)
[2016-08-23 21:45] LABS: CALCIUM 9.3 mg/dl (8.4-10.2)
[2016-08-24] VITALS (13 sets, daily range): BP systolic 90–119; BP diastolic 50–56; PULSE 59–85; RESP 18
[2016-08-24] MEDS: morphine 2 MG INJ IV PRN ×2 (05:49→13:57)
[2016-08-24] MEDS: PANTOPRAZOLE (EC) 40 MG TAB PO SCH (05:50)
[2016-08-24] MEDS: ENOXAPARIN 40 MG/0.4 ML SYG SC SCH (05:56)
[2016-08-24 08:08] LABS: ADD SCAN DIFF NO
[2016-08-24 08:11] LABS: BASOPHIL # 0.1 10^3/ul (0.0-0.1); EOSINOPHILS # 0.4 10^3/ul (0.0-0.5); EOSINOPHILS % 6.3 % (0.0-7.0); HEMATOCRIT 35.2 % (37.0-47.0); LYMPHOCYTES # 1.5 10^3/ul (0.8-2.9); LYMPHOCYTES % 26.7 % (15.0-51.0); MEAN CORPUSCULAR HEMOGLOBIN 29.6 pg (29.0-33.0); MEAN CORPUSCULAR HGB CONC 31.3 g/dl (32.0-37.0); MEAN CORPUSCULAR VOLUME 94.6 fl (82.0-101.0); MEAN PLATELET VOLUME 10.9 fl (7.4-10.4); MONOCYTE # 0.6 10^3/ul (0.3-0.9); MONOCYTES % 11.2 % (0.0-11.0); NEUTROPHIL # 3.1 10^3/ul (1.6-7.5); NEUTROPHILS % 54.3 % (39.0-77.0); PLATELET COUNT 198 10^3/UL (140-415); RED BLOOD COUNT 3.72 10^6/ul (4.20-5.40); RED CELL DISTRIBUTION WIDTH 14.9 % (11.5-14.5); WHITE BLOOD COUNT 5.7 10^3/ul (4.8-10.8)
[2016-08-24 08:33] LABS: INR 2.22; PROTIME 24.9 Sec (12.2-14.2); PT RATIO 1.9
[2016-08-24 08:46] LABS: CALCIUM 9.2 mg/dl (8.4-10.2); CREATININE 0.47 mg/dl (0.44-1.00); POTASSIUM 4.6 mmol/L (3.5-5.1)
[2016-08-24] MEDS: LORATADINE 10 MG TAB PO SCH (08:53)
[2016-08-24] MEDS: DILTIAZEM 30 MG TAB PO SCH ×3 (08:53→17:04)
[2016-08-24] MEDS: FLUTICASONE 0.05% 16 GM NAS SPRAY NASAL SCH ×2 (08:54→20:40)
[2016-08-24] MEDS: LEVALBUTEROL (HFA) 15 GM INHALER INH SCH ×3 (08:54→16:00)
[2016-08-24] MEDS: MOMETASONE 0.24 GM INHALER INH SCH ×2 (08:54→20:40)
[2016-08-24] MEDS ORDERED: DIGOXIN 0.125 MG TAB PO ONE (09:30)
--- NOTE | 2016-08-24 10:41 | PN ---
DATE: 08/24/2016 SUBJECTIVE: The patient is feeling better but last night had a rapid AFib and is very exhausted tod ay. No chest pain, no shortness of breath but still having some abdominal pain. OBJECTIVE: VITAL SIGNS: Currently, heart rate is 59 and regular, blood pressure 116/56, oxygen saturation 94% on 2 liters, temperature 98.2, respirations 18. GENERAL: Well-developed, well-nourished female in no acute distress, lying in bed. SKIN: Without rashes. CHEST: Increased expiratory phase, otherwise clear. HEART: Regular rate and rhythm. ABDOMEN: Soft, nondistended, mild to moderate tenderness to palpation, especially in the left mid a bdomen. Wound is clean, dry and intact. EXTREMITIES: No cyanosis, clubbing or edema. LABORATORY DATA: Hemoglobin 11.0, hematocrit 35.2. White blood cell count 5.7, platelets 198. INR of 2.22. Sodium 136, potassium 4.6, chloride 111, bicarbonate 22, BUN of 9, creatinine 0.47, blood sugar of 83, calcium 9.2. ASSESSMENT AND PLAN: 1. Status post laparoscopic partial colectomy. The patient is doing well except for the cardiac is sues. Patient has mild to moderate pain. Will continue with advancing diet as well as ambulation and p.r.n. analgesics. 2. Atrial fibrillation with rapid ventricular response. The patient has been transferred to teleme try overnight and is currently in sinus rhythm. Will add digoxin to her current regimen. We will steiner ve cardiology see the patient to assist and continue with the Cardizem that she is on. 3. Asthma. Continue with medications. 4. Gastroesophageal reflux disease. Continue with medications and diet. 5. Sicca syndrome. Continue with the patient's medications. Dictated By: NADEEM HAMILTON MD SR/NTS Conf#: [id number] DID#: [id number]
[2016-08-24] MEDS: DIGOXIN 0.125 MG TAB PO SCH (13:54)
--- NOTE | 2016-08-24 16:23 | CONS ---
Date/Time of Note Date/Time of Note DATE: 08/24/16 TIME: 16:15 Assessment/Plan Assessment/Plan Additional Assessment/Plan Paroxysmal atrial flutter/fibrillation, currently sinus rhythm Status post abdominal surgery Preserved ejection fraction History of pacemaker -Patient episodes of atrial flutter / fibrillation with rapid ventricular rates , currently sinus rhythm. Patient states she is very sensitive to medications and was previously on Cardizem 15 mg, would decrease her current dose to 15 mg every 6 hours. Continue digoxin. Maintain potassium above 4.0 and magnesium above 2.0. If recurrence of atrial fibrillation/flutter, would start amiodarone. Consultation Date/Type/Reason Admit Date/Time Aug 18, 2016 at 12:15 Type of Consultation: cv Reason for Consultation Atrial flutter Hx of Present Illness This is an 86-year-old female with past medical history of paroxysmal atrial fibrillation/flutter, pacemaker, who underwent abdominal surgery. Last night, patient with conversion to atrial flutter with rapid ventricular rates. Patient was symptomatic with palpitations and shortness of breath. She converted to sinus rhythm. She feels much better now. She denies any shortness of breath, chest pain, palpitations, dizziness or lightheadedness. She does complain of fatigue. 12 point review of systems was performed with all pertinent positives and negatives mentioned above and all else is negative Past Medical History Atrial fibrillation Bradycardia status post pacemaker Diverticulosis Past Surgical History Past Surgical Hx: other (Abdominal surgery, pacemaker) Family History Significant Family History: no pertinent family hx Social History Alcohol Use: none Smoking Status: Never smoker Exam/Review of Systems Vital Signs Vitals Vital Signs Date Time Temp Pulse Resp B/P Pulse Ox O2 Delivery O2 Flow Rate FiO2 08/24/16 15:26 98.2 60 18 110/54 99 08/23/16 21:30 Nasal Cannula 2.0 Intake and Output 08/23/16 08/23/16 08/24/16 15:00 23:00 07:00 Intake Total 920 ml 120 ml Balance 920 ml 120 ml Exam No apparent distress Constitutional: alert, frail, oriented Head: normocephalic Respiratory: clear to auscultation, normal air movement Cardiovascular: other (S1-S2 heard), regular rate and rhythm Gastrointestinal: bowel sounds, non-tender, other (No guarding), soft Extremities: other (No significant edema, no cyanosis) Results Result Diagram: 08/24/16 0720 08/24/16 0720 Results 24 hrs Laboratory Tests Test 08/23/16 20:55 08/24/16 07:20 White Blood Count 6.5 5.7 Red Blood Count 3.68 L 3.72 L Hemoglobin 11.0 L 11.0 L Hematocrit 33.5 L 35.2 L Mean Corpuscular Volume 91.0 94.6 Mean Corpuscular Hemoglobin 29.9 29.6 Mean Corpuscular Hemoglobin Concent 32.8 31.3 L Red Cell Distribution Width 14.8 H 14.9 H Platelet Count 192 198 Mean Platelet Volume 10.6 H 10.9 H Neutrophils % 54.7 54.3 Lymphocytes % 29.7 26.7 Monocytes % 9.9 11.2 H Eosinophils % 4.6 6.3 Basophils % 0.5 1.0 Nucleated Red Blood Cells % 0.0 0.0 Neutrophils # 3.5 3.1 Lymphocytes # 1.9 1.5 Monocytes # 0.6 0.6 Eosinophils # 0.3 0.4 Basophils # 0.0 0.1 Nucleated Red Blood Cells # 0.0 0.0 Sodium Level 138 136 Potassium Level 3.9 4.6 Chloride Level 106 111 H Carbon Dioxide Level 24 22 Anion Gap 12 8 Blood Urea Nitrogen 11 9 Creatinine 0.52 0.47 Glucose Level 133 # 83 # Calcium Level 9.3 9.2 Total Bilirubin 0.1 L Direct Bilirubin 0.00 Indirect Bilirubin 0.1 Aspartate Amino Transf (AST/SGOT) 15 Alanine Aminotransferase (ALT/SGPT) 30 Alkaline Phosphatase 54 Total Protein 5.2 L Albumin 2.9 L Globulin 2.30 Albumin/Globulin Ratio 1.26 Prothrombin Time 24.9 #H Prothrombin Time Ratio 1.9 INR International Normalized Ratio 2.22 Medications Medications Current Medications Ondansetron HCl (Zofran Inj) 4 mg Q6H PRN IV NAUSEA AND/OR VOMITING Last administered on 08/23/16t 18:44; Admin Dose 4 MG; Start 08/18/16 at 18:30 Naloxone HCl (Narcan) 0.2 mg Q2M PRN IV FOR RESP RATE 8 OR LESS; Start at 18:30 Ondansetron HCl (Zofran Inj) 4 mg Q6H PRN IV NAUSEA AND/OR VOMITING; Start at 20:00 Pantoprazole 40 mg 40 mg DAILY@06 PO Last administered on 08/24/16 05:50; Admin Dose 40 MG; Start 08/19/16 at 06:00 Potassium Chloride/Dextrose/ Sod Cl (D5-1/2ns + KCl 20 Meq) 1,000 ml @ 25 mls/ hr Q24H IV Last administered on 08/20/16 01:41; Admin Dose 75 MLS/HR; Start at 19:51; Status Future Hold Enoxaparin Sodium (Lovenox) 40 mg DAILY@07 SC Last administered on 08/24/16 05: 56; Admin Dose 40 MG; Start 08/19/16 at 07:00 Diltiazem HCl (Cardizem) 30 mg QID PO Last administered on 08/23/16 18:40; Admin Dose 30 MG; Start 08/19/16 at 13:00 Montelukast Sodium (Singulair) 10 mg HS PO Last administered on 08/23/16 21:18 ; Admin Dose 10 MG; Start 08/19/16 at 21:00 Clonidine (Catapres) 0.1 mg Q6 PRN NGT sbp>170; Start 08/19/16 at 11:30 Acetaminophen (Tylenol Liquid) 325 mg Q6H PRN PO PAIN AND OR ELEVATED TEMP Last administered on 08/22/16 22:13; Admin Dose 325 MG; Start 08/19/16 at 13:00 Mometasone Furoate (Asmanex) . BID INH Last administered on 08/24/16 08:54; Admin Dose 1 PUFF; Start 08/19/16 at 21:00 Fluticasone Propionate (Flonase 0.05% Nasal) 1 spray BID NASAL Last administered on 08/24/16 08:54; Admin Dose 1 SPRAY; Start 08/20/16 at 21:00 Loratadine (Claritin) 10 mg DAILY PO Last administered on 08/24/16 08:53; Admin Dose 10 MG; Start 08/20/16 at 12:30 Morphine Sulfate (morphine) 0.5 mg Q3H PRN IV pain Last administered on 13:57; Admin Dose 0.5 MG; Start 08/21/16 at 11:00 Warfarin Sodium (Coumadin) 3 mg ONCE@17 ONCE PO ; Start 08/24/16 at 17:00; Stop 08/24/16 at 17:01 Digoxin (Digoxin) 0.125 mg DAILY@13 PO Last administered on 08/24/16t 13:54; Admin Dose 0.125 MG; Start 08/24/16 at 13:00 Procedures Procedures ECG with a paced at 60 bpm, QRS 70 ms, no significant ischemic STT wave abnormalities Jones Long DO August 24, 2016 16:22
[2016-08-24] MEDS ORDERED: MAGNESIUM SULFATE 1 GM/D5W 100 ML IVPB ONE (16:30)
[2016-08-24] MEDS ORDERED: WARFARIN 3 MG TAB PO ONE (17:00)
[2016-08-24] MEDS: MONTELUKAST 10 MG TAB PO SCH (20:40)
[2016-08-25] VITALS (17 sets, daily range): BP systolic 96–148; BP diastolic 55–76; PULSE 59–160; RESP 18–20
--- NOTE | 2016-08-25 01:15 | PN ---
Date/Time of Note Date/Time of Note DATE: 08/24/16 TIME: 21:14 Assessment/Plan Lines/Catheters IV Catheter Type (from Nrs): Saline Lock Simons in Place (from Nrs): No Assessment/Plan Chief Complaint/Hosp Course 1. Microperforated diverticulitis hx with mills diverticulosis s/p lap low anterior resection 08/18 -diet -judicious fluid management 2. Anemia without evidence of acute blood loss -Monitor 3. Paroxysmal atrial fibrillation, sinus -Optimize electrolytes -Judicious fluids 4. GERD -Diet and lifestyle optimization -PPI 5. Asthma -Medical optimization 6. Hypertension -Nutrition and medication optimization 7. Back pain with Vertebral compression fracture -Physical therapy -Pain control -Ice pack to abdominal wall prn pain/swelling. 8. History of sick sinus syndrome status post pacemaker -Cardiac optimization 9. Paralytic ileus. Improving. -oob/ambulate -chew gum -advance diet as tolerated Thank you, Late entry 08/24 Problems: Subjective 24 Hr Interval Summary Back in sinus. Feels better. Bowel movements and flatus. Min pain improved. No f/c. No n/v. No cp/sob. No cough. No steiner/dizzy/visual or neuro changes. Exam/Review of Systems Vital Signs Vitals Vital Signs Date Time Temp Pulse Resp B/P Pulse Ox O2 Delivery O2 Flow Rate FiO2 08/25/16 00:09 98.1 60 20 133/63 96 08/23/16 21:30 Nasal Cannula 2.0 Intake and Output 08/24/16 08/24/16 08/25/16 15:00 23:00 07:00 Intake Total 920 ml Balance 920 ml Exam Free Text/Dictation Constitutional: alert, oriented, No distress Psych: anxiety, No confusion Head: atraumatic, normocephalic Eyes: EOMI, PERRL, nl conjunctiva, No icteric ENMT: mucosa pink and moist, nl external ears & nose, nl lips & teeth Neck: non-tender, No jvd Respiratory: normal air movement, No congested cough, No labored breathing Cardiovascular: regular rate and rhythm, No edema Gastrointestinal: soft, minimal tenderness without rebound or guarding, not rigid Musculoskeletal: nl extremities to inspection, nl gait and stance, No joint tenderness Extremities: normal pulses, No calf tenderness, No cyanosis, No edema Neurological: nl mental status, nl speech, nl strength Skin: nl turgor, No diaphoresis, No rash or lesions Lymph: nl lymph nodes Results Result Diagram: 08/24/16 0720 08/24/16 0720 KARRIE WEST MD August 25, 2016 01:15
[2016-08-25] MEDS: PANTOPRAZOLE (EC) 40 MG TAB PO SCH (05:40)
[2016-08-25] MEDS: DILTIAZEM 30 MG TAB PO SCH ×5 (05:40→23:58)
[2016-08-25] MEDS: ENOXAPARIN 40 MG/0.4 ML SYG SC SCH (05:42)
[2016-08-25 06:50] LABS: ADD SCAN DIFF NO
[2016-08-25 07:03] LABS: BASOPHIL # 0.1 10^3/ul (0.0-0.1); BASOPHILS % 0.8 % (0.0-2.0); EOSINOPHILS # 0.4 10^3/ul (0.0-0.5); EOSINOPHILS % 5.7 % (0.0-7.0); HEMATOCRIT 34.9 % (37.0-47.0); HEMOGLOBIN 11.1 g/dl (12.0-16.0); LYMPHOCYTES # 1.9 10^3/ul (0.8-2.9); LYMPHOCYTES % 30.6 % (15.0-51.0); MEAN CORPUSCULAR HEMOGLOBIN 29.8 pg (29.0-33.0); MEAN CORPUSCULAR HGB CONC 31.8 g/dl (32.0-37.0); MEAN CORPUSCULAR VOLUME 93.6 fl (82.0-101.0); MEAN PLATELET VOLUME 10.8 fl (7.4-10.4); MONOCYTE # 0.6 10^3/ul (0.3-0.9); MONOCYTES % 9.5 % (0.0-11.0); NEUTROPHIL # 3.3 10^3/ul (1.6-7.5); NEUTROPHILS % 52.9 % (39.0-77.0); PLATELET COUNT 210 10^3/UL (140-415); RED BLOOD COUNT 3.73 10^6/ul (4.20-5.40); RED CELL DISTRIBUTION WIDTH 14.6 % (11.5-14.5); WHITE BLOOD COUNT 6.2 10^3/ul (4.8-10.8)
[2016-08-25 07:35] LABS: INR 1.67; PROTIME 19.8 Sec (12.2-14.2); PT RATIO 1.5
[2016-08-25 07:59] LABS: CALCIUM 9.3 mg/dl (8.4-10.2); CREATININE 0.49 mg/dl (0.44-1.00); MAGNESIUM 2.3 mg/dl (1.7-2.5); POTASSIUM 4.3 mmol/L (3.5-5.1)
[2016-08-25] MEDS: LEVALBUTEROL (HFA) 15 GM INHALER INH SCH ×4 (08:00→18:00)
[2016-08-25] MEDS: FLUTICASONE 0.05% 16 GM NAS SPRAY NASAL SCH ×2 (09:07→21:04)
[2016-08-25] MEDS: MOMETASONE 0.24 GM INHALER INH SCH ×2 (09:07→21:04)
[2016-08-25] MEDS: LORATADINE 10 MG TAB PO SCH (09:07)
--- NOTE | 2016-08-25 09:47 | PN ---
DATE: 08/25/2016 SUBJECTIVE: The patient complains of some mild abdominal pain with transferring, but good appetite. The patient with occasional palpitations. No chest pain, no shortness of breath. OBJECTIVE: VITAL SIGNS: Temperature 98.0, pulse 60 regular, respiratory rate 18, blood pressure 127/60, oxygen saturation 98% on room air. GENERAL: Well-developed, well-nourished female in no acute distress, sitting in chair. CHEST: Increased expiratory phase, otherwise clear to auscultation bilaterally. HEART: Regular rate and rhythm. No ectopy. ABDOMEN: Normoactive bowel sounds, nondistended. No rebound. Mild tenderness to palpation especial ly in the left mid abdomen. Wounds are clean, dry and intact. No erythema, no drainage. EXTREMITIES: No cyanosis, clubbing or edema. NEUROLOGIC: Nonfocal. LABORATORY DATA: White blood cell count 6.2, hemoglobin 11.1, hematocrit 34.9, platelets 210. INR 1.67. Sodium 136, potassium 4.3, chloride 108, bicarbonate 24, BUN 10, creatinine 0.49, magnesium i s 2.3, calcium 9.3, glucose of 87. ASSESSMENT AND PLAN 1. Status post laparoscopic partial colectomy for microperforation diverticulitis. Patient continu es to improve, tolerating diet and has had a bowel movement. The patient likely stable for discharg e tomorrow as she continues to improve. 2. Paroxysmal atrial fibrillation with rapid ventricular rate. The patient remained stable on tele metry with some atrial fibrillation but better rate control combination of Diltiazem, Digoxin. Will continue these medications for now. Will give 6 mg of Coumadin today. 3. Asthma, stable. Continue with medications, inhalers. 4. Gastroesophageal reflux disease. Continue with medications and diet. 5. Sicca syndrome. We will continue with patient's Restasis. Discharge planning. 6. Patient likely for discharge tomorrow. We will continue with discharge planning. At this point , have home health reinstated after discharge. Dictated By: NADEEM HAMILTON MD, SR/NTS Conf#: [id number] DID#: [id number]
[2016-08-25] MEDS: DIGOXIN 0.125 MG TAB PO SCH (11:53)
--- NOTE | 2016-08-25 11:57 | CONS ---
Date/Time of Note Date/Time of Note DATE: 08/25/16 TIME: 11:55 Assessment/Plan Assessment/Plan Additional Assessment/Plan Paroxysmal atrial flutter/fibrillation, currently sinus rhythm Status post abdominal surgery Preserved ejection fraction History of pacemaker -Patient remains in sinus rhythm, continue Cardizem and switch to 3 times daily dosing upon discharge (patient's home dose). Coumadin as per INR. Consultation Date/Type/Reason Admit Date/Time Aug 18, 2016 at 12:15 Initial Consult Date Type of Consultation: cv 24 HR Interval Summary Free Text/Dictation Denies palpitations, shortness of breath. Feeling much better Exam/Review of Systems Vital Signs Vitals Vital Signs Date Time Temp Pulse Resp B/P Pulse Ox O2 Delivery O2 Flow Rate FiO2 08/25/16 09:01 59 08/25/16 07:33 98.0 18 127/60 98 08/23/16 21:30 Nasal Cannula 2.0 Intake and Output 08/24/16 08/24/16 08/25/16 15:00 23:00 07:00 Intake Total 920 ml 120 ml Balance 920 ml 120 ml Exam And bleeding with a walker, no apparent distress Constitutional: alert, oriented Head: normocephalic Respiratory: clear to auscultation, normal air movement Cardiovascular: other (S1-S2 heard), regular rate and rhythm Gastrointestinal: bowel sounds, non-tender, soft Extremities: other (No edema) Results Result Diagram: 08/25/16 0600 08/25/16 0600 Results 24 hrs Laboratory Tests Test 08/25/16 06:00 White Blood Count 6.2 Red Blood Count 3.73 L Hemoglobin 11.1 L Hematocrit 34.9 L Mean Corpuscular Volume 93.6 Mean Corpuscular Hemoglobin 29.8 Mean Corpuscular Hemoglobin Concent 31.8 L Red Cell Distribution Width 14.6 H Platelet Count 210 Mean Platelet Volume 10.8 H Neutrophils % 52.9 Lymphocytes % 30.6 Monocytes % 9.5 Eosinophils % 5.7 Basophils % 0.8 Nucleated Red Blood Cells % 0.0 Neutrophils # 3.3 Lymphocytes # 1.9 Monocytes # 0.6 Eosinophils # 0.4 Basophils # 0.1 Nucleated Red Blood Cells # 0.0 Prothrombin Time 19.8 #H Prothrombin Time Ratio 1.5 INR International Normalized Ratio 1.67 Sodium Level 136 Potassium Level 4.3 Chloride Level 108 Carbon Dioxide Level 24 Anion Gap 8 Blood Urea Nitrogen 10 Creatinine 0.49 Glucose Level 87 Calcium Level 9.3 Magnesium Level 2.3 Medications Medications Current Medications Naloxone HCl (Narcan) 0.2 mg Q2M PRN IV FOR RESP RATE 8 OR LESS; Start at 18:30 Ondansetron HCl (Zofran Inj) 4 mg Q6H PRN IV NAUSEA AND/OR VOMITING; Start at 20:00 Pantoprazole 40 mg 40 mg DAILY@06 PO Last administered on 08/25/16 05:40; Admin Dose 40 MG; Start 08/19/16 at 06:00 Potassium Chloride/Dextrose/ Sod Cl (D5-1/2ns + KCl 20 Meq) 1,000 ml @ 25 mls/ hr Q24H IV Last administered on 08/20/16 01:41; Admin Dose 75 MLS/HR; Start at 19:51; Status Future Hold Enoxaparin Sodium (Lovenox) 40 mg DAILY@07 SC Last administered on 08/25/16 05: 42; Admin Dose 40 MG; Start 08/19/16 at 07:00 Montelukast Sodium (Singulair) 10 mg HS PO Last administered on 08/24/16 20:40 ; Admin Dose 10 MG; Start 08/19/16 at 21:00 Clonidine (Catapres) 0.1 mg Q6 PRN NGT sbp>170; Start 08/19/16 at 11:30 Acetaminophen (Tylenol Liquid) 325 mg Q6H PRN PO PAIN AND OR ELEVATED TEMP Last administered on 08/22/16 22:13; Admin Dose 325 MG; Start 08/19/16 at 13:00 Mometasone Furoate (Asmanex) . BID INH Last administered on 08/25/16 09:07; Admin Dose 1 PUFF; Start 08/19/16 at 21:00 Fluticasone Propionate (Flonase 0.05% Nasal) 1 spray BID NASAL Last administered on 08/25/16 09:07; Admin Dose 1 SPRAY; Start 08/20/16 at 21:00 Loratadine (Claritin) 10 mg DAILY PO Last administered on 08/25/16 09:07; Admin Dose 10 MG; Start 08/20/16 at 12:30 Morphine Sulfate (morphine) 0.5 mg Q3H PRN IV pain Last administered on 13:57; Admin Dose 0.5 MG; Start 08/21/16 at 11:00 Digoxin (Digoxin) 0.125 mg DAILY@13 PO Last administered on 08/25/16 11:53; Admin Dose 0.125 MG; Start 08/24/16 at 13:00 Diltiazem HCl (Cardizem) 15 mg Q6 PO Last administered on 08/25/16 11:53; Admin Dose 15 MG; Start 08/24/16 at 18:00 Warfarin Sodium (Coumadin) 6 mg ONCE@17 ONCE NGT ; Start 08/25/16 at 17:00; Stop 08/25/16 at 17:01 Jones Long DO August 25, 2016 11:57
--- NOTE | 2016-08-25 15:54 | PN ---
Date/Time of Note Date/Time of Note DATE: 08/25/16 TIME: 15:54 Assessment/Plan Lines/Catheters IV Catheter Type (from Nrs): Peripheral IV Simons in Place (from Nrs): No Assessment/Plan Chief Complaint/Hosp Course 1. Microperforated diverticulitis hx with mills diverticulosis s/p lap low anterior resection 08/18 -diet -judicious fluid management 2. Anemia without evidence of acute blood loss -Monitor 3. Paroxysmal atrial fibrillation, sinus -Optimize electrolytes -Judicious fluids 4. GERD -Diet and lifestyle optimization -PPI 5. Asthma -Medical optimization 6. Hypertension -Nutrition and medication optimization 7. Back pain with Vertebral compression fracture -Physical therapy -Pain control -Ice pack to abdominal wall prn pain/swelling. 8. History of sick sinus syndrome status post pacemaker -Cardiac optimization 9. Paralytic ileus. Improving. -oob/ambulate -chew gum -advance diet as tolerated Thank you, Problems: Subjective 24 Hr Interval Summary Feels better. Bowel movements and flatus. Min pain improved. No f/c. No n/ v. No cp/sob. No cough. No steiner/dizzy/visual or neuro changes. Exam/Review of Systems Vital Signs Vitals Vital Signs Date Time Temp Pulse Resp B/P Pulse Ox O2 Delivery O2 Flow Rate FiO2 08/25/16 12:38 65 08/25/16 12:25 98.0 18 118/59 97 08/23/16 21:30 Nasal Cannula 2.0 Intake and Output 08/24/16 08/24/16 08/25/16 15:00 23:00 07:00 Intake Total 920 ml 120 ml Balance 920 ml 120 ml Exam Free Text/Dictation Constitutional: alert, oriented, No distress Psych: anxiety, No confusion Head: atraumatic, normocephalic Eyes: EOMI, PERRL, nl conjunctiva, No icteric ENMT: mucosa pink and moist, nl external ears & nose, nl lips & teeth Neck: non-tender, No jvd Respiratory: normal air movement, No congested cough, No labored breathing Cardiovascular: regular rate and rhythm, No edema Gastrointestinal: soft, minimal tenderness without rebound or guarding, not rigid Musculoskeletal: nl extremities to inspection, nl gait and stance, No joint tenderness Extremities: normal pulses, No calf tenderness, No cyanosis, No edema Neurological: nl mental status, nl speech, nl strength Skin: nl turgor, No diaphoresis, No rash or lesions Lymph: nl lymph nodes Results Result Diagram: 08/25/1659908/25/16 06 KARRIE WEST MD August 25, 2016 15:54
--- NOTE | 2016-08-25 16:38 | RADRPT ---
Vent Rate: 110 bpm RR Interval: 0 msec MA Interval: 0 msec QRS Duration: 80 msec QT Interval: 336 msec QTC Interval: 454 msec P-R-T [place]: 0 - 35 - -6 degrees Atrial fibrillation with rapid ventricular response with premature ventricular or aberrantly conducted complexes Abnormal ECG Electronically Signed By: Antonino Penaloza [id number]
--- NOTE | 2016-08-25 16:38 | RADRPT ---
Vent Rate: 60 bpm RR Interval: 0 msec [place] Interval: 134 msec QRS Duration: 78 msec QT Interval: 412 msec QTC Interval: 412 msec P-R-T [place]: 14 - 40 - 41 degrees Electronic atrial pacemaker Electronically Signed By: Antonino Penaloza [id number]
[2016-08-25] MEDS ORDERED: WARFARIN 3 MG TAB NGT ONE (17:00)
[2016-08-25] MEDS ORDERED: VITAMIN A & D 5 GM OINT PACKET TOP ONE (17:09)
[2016-08-25] MEDS ORDERED: DILTIAZEM-D5W 125MG/125ML DRIP 125 ML IV SCH (18:30)
[2016-08-25] MEDS: morphine 2 MG INJ IV PRN (18:43)
[2016-08-25] MEDS: MONTELUKAST 10 MG TAB PO SCH (21:03)
[2016-08-26] VITALS (7 sets, daily range): BP systolic 117–144; BP diastolic 58–65; PULSE 59–60; RESP 16–19
[2016-08-26] MEDS: morphine 2 MG INJ IV PRN (03:06)
[2016-08-26] MEDS: DILTIAZEM 30 MG TAB PO SCH ×2 (05:29→12:43)
[2016-08-26] MEDS: PANTOPRAZOLE (EC) 40 MG TAB PO SCH (05:30)
[2016-08-26] MEDS: ENOXAPARIN 40 MG/0.4 ML SYG SC SCH (05:35)
[2016-08-26 06:51] LABS: ADD SCAN DIFF NO
[2016-08-26 06:58] LABS: BASOPHILS % 0.7 % (0.0-2.0); EOSINOPHILS # 0.4 10^3/ul (0.0-0.5); EOSINOPHILS % 6.5 % (0.0-7.0); HEMATOCRIT 34.3 % (37.0-47.0); LYMPHOCYTES # 1.6 10^3/ul (0.8-2.9); LYMPHOCYTES % 29.9 % (15.0-51.0); MEAN CORPUSCULAR HEMOGLOBIN 29.8 pg (29.0-33.0); MEAN CORPUSCULAR HGB CONC 32.1 g/dl (32.0-37.0); MEAN PLATELET VOLUME 10.7 fl (7.4-10.4); MONOCYTE # 0.6 10^3/ul (0.3-0.9); MONOCYTES % 10.6 % (0.0-11.0); NEUTROPHIL # 2.8 10^3/ul (1.6-7.5); NEUTROPHILS % 51.4 % (39.0-77.0); PLATELET COUNT 225 10^3/UL (140-415); RED BLOOD COUNT 3.69 10^6/ul (4.20-5.40); RED CELL DISTRIBUTION WIDTH 14.6 % (11.5-14.5); WHITE BLOOD COUNT 5.4 10^3/ul (4.8-10.8)
[2016-08-26 07:19] LABS: CALCIUM 9.4 mg/dl (8.4-10.2); CREATININE 0.48 mg/dl (0.44-1.00); MAGNESIUM 2.2 mg/dl (1.7-2.5); POTASSIUM 4.3 mmol/L (3.5-5.1)
[2016-08-26 07:22] LABS: INR 1.8; PT RATIO 1.6
[2016-08-26] MEDS ORDERED: WARFARIN 3 MG TAB PO SCH (08:00)
[2016-08-26] MEDS: LORATADINE 10 MG TAB PO SCH (08:23)
[2016-08-26] MEDS: MOMETASONE 0.24 GM INHALER INH SCH (08:24)
[2016-08-26] MEDS: FLUTICASONE 0.05% 16 GM NAS SPRAY NASAL SCH (08:25)
[2016-08-26] MEDS: LEVALBUTEROL (HFA) 15 GM INHALER INH SCH ×2 (08:25)
--- NOTE | 2016-08-26 09:37 | CONS ---
Date/Time of Note Date/Time of Note DATE: 08/26/16 TIME: 09:35 Assessment/Plan Assessment/Plan Chief Complaint/Hosp Course Paroxysmal atrial flutter/fibrillation, currently sinus rhythm Status post abdominal surgery Preserved ejection fraction History of pacemaker Problems: Additional Assessment/Plan 1) no evidence of arrhythmia on tele while having palpitations 2) continue current cardiac care 3) ok to dc from cards 4) outpatient fu Consultation Date/Type/Reason Admit Date/Time Aug 18, 2016 at 12:15 Initial Consult Date Type of Consultation: cv 24 HR Interval Summary Free Text/Dictation patient still has episodes of palpitations, no chest pain, no sob Detailed Summary Respiratory: no complaints Cardiovascular: palpitations Gastrointestinal: no complaints Musculoskeletal: no complaints Skin: no complaints Neurologic: no complaints Exam/Review of Systems Vital Signs Vitals Vital Signs Date Time Temp Pulse Resp B/P Pulse Ox O2 Delivery O2 Flow Rate FiO2 08/26/16 08:17 60 08/26/16 07:26 98.2 19 117/59 98 08/23/16 21:30 Nasal Cannula 2.0 Intake and Output 08/25/16 08/25/16 08/26/16 15:00 23:00 07:00 Intake Total 800 ml 240 ml Balance 800 ml 240 ml Exam Constitutional: alert, oriented Head: atraumatic, normocephalic ENMT: nl external ears & nose Neck: supple Respiratory: clear to auscultation Cardiovascular: regular rate and rhythm Gastrointestinal: soft Musculoskeletal: nl extremities to inspection Results Result Diagram: 08/26/16 0605 08/26/16 0605 Results 24 hrs Laboratory Tests Test 08/26/16 06:05 White Blood Count 5.4 Red Blood Count 3.69 L Hemoglobin 11.0 L Hematocrit 34.3 L Mean Corpuscular Volume 93.0 Mean Corpuscular Hemoglobin 29.8 Mean Corpuscular Hemoglobin Concent 32.1 Red Cell Distribution Width 14.6 H Platelet Count 225 Mean Platelet Volume 10.7 H Neutrophils % 51.4 Lymphocytes % 29.9 Monocytes % 10.6 Eosinophils % 6.5 Basophils % 0.7 Nucleated Red Blood Cells % 0.0 Neutrophils # 2.8 Lymphocytes # 1.6 Monocytes # 0.6 Eosinophils # 0.4 Basophils # 0.0 Nucleated Red Blood Cells # 0.0 Prothrombin Time 21.0 H Prothrombin Time Ratio 1.6 INR International Normalized Ratio 1.80 Sodium Level 138 Potassium Level 4.3 Chloride Level 109 Carbon Dioxide Level 25 Anion Gap 8 Blood Urea Nitrogen 9 Creatinine 0.48 Glucose Level 87 Calcium Level 9.4 Magnesium Level 2.2 Medications Medications Current Medications Naloxone HCl (Narcan) 0.2 mg Q2M PRN IV FOR RESP RATE 8 OR LESS; Start at 18:30 Ondansetron HCl (Zofran Inj) 4 mg Q6H PRN IV NAUSEA AND/OR VOMITING; Start at 20:00 Pantoprazole 40 mg 40 mg DAILY@06 PO Last administered on 08/26/16 05:30; Admin Dose 40 MG; Start 08/19/16 at 06:00 Potassium Chloride/Dextrose/ Sod Cl (D5-1/2ns + KCl 20 Meq) 1,000 ml @ 25 mls/ hr Q24H IV Last administered on 08/20/16 01:41; Admin Dose 75 MLS/HR; Start at 19:51; Status Future Hold Enoxaparin Sodium (Lovenox) 40 mg DAILY@07 SC Last administered on 08/26/16 05: 35; Admin Dose 40 MG; Start 08/19/16 at 07:00 Montelukast Sodium (Singulair) 10 mg HS PO Last administered on 08/25/16 21:03 ; Admin Dose 10 MG; Start 08/19/16 at 21:00 Clonidine (Catapres) 0.1 mg Q6 PRN NGT sbp>170; Start 08/19/16 at 11:30 Acetaminophen (Tylenol Liquid) 325 mg Q6H PRN PO PAIN AND OR ELEVATED TEMP Last administered on 08/22/16 22:13; Admin Dose 325 MG; Start 08/19/16 at 13:00 Mometasone Furoate (Asmanex) . BID INH Last administered on 08/26/16 08:24; Admin Dose 1 PUFF; Start 08/19/16 at 21:00 Fluticasone Propionate (Flonase 0.05% Nasal) 1 spray BID NASAL Last administered on 08/26/16 08:25; Admin Dose 1 SPRAY; Start 08/20/16 at 21:00 Loratadine (Claritin) 10 mg DAILY PO Last administered on 08/26/16 08:23; Admin Dose 10 MG; Start 08/20/16 at 12:30 Morphine Sulfate (morphine) 0.5 mg Q3H PRN IV pain Last administered on 03:06; Admin Dose 0.5 MG; Start 08/21/16 at 11:00 Digoxin (Digoxin) 0.125 mg DAILY@13 PO Last administered on 08/25/16 11:53; Admin Dose 0.125 MG; Start 08/24/16 at 13:00 Diltiazem HCl 15 mg 15 mg Q6 PO Last administered on 08/26/16 05:29; Admin Dose 15 MG; Start 08/24/16 at 18:00 Diltiazem HCl (Cardizem-D5W 125 Mg/125 ml Drip) 125 ml @ 5 mls/hr TITRATE IV Last administered on 08/25/16 18:15; Admin Dose 5 MLS/HR; Start 08/25/16 at 18:30 Warfarin Sodium (Coumadin) 6 mg NOW PO Last administered on 08/26/16 08:24; Admin Dose 6 MG; Start 08/26/16 at 08:00; Stop 08/26/16 at 23:00 NORMA NICHOLAS MD August 26, 2016 09:37
--- NOTE | 2016-08-26 11:06 | PDOCDIS ---
Discharge Instructions DIAGNOSIS Discharge Diagnosis: s/p lap partial colectomy for perf'd sigmoid/ diverticulitis CONDITION Patient Condition: Good HOME CARE INSTRUCTIONS: Diet Instructions: RegularSpecial Diet: N/A ACTIVITY: Activity Restrictions: Slowly Increase Activity FOLLOW UP/APPOINTMENTS Appointments patient to f/u with Dr Neal and Dr Gamboa within 2wks of d/c and should call for appt REFERRALS Agency Name and Phone Number: [employer] (already has an account and needs to be resumed ) NADEEM NEAL MD- August 26, 2016 11:06
[2016-08-26] MEDS ORDERED: OMEG-135 PO (11:11)
[2016-08-26] MEDS ORDERED: MAGNESIUM HYDROXIDE 30ML CUP PO ONE (12:00)
[2016-08-26] MEDS: DIGOXIN 0.125 MG TAB PO SCH (12:44)
--- NOTE | 2016-08-26 12:58 | PN ---
DATE: 08/26/2016 SUBJECTIVE: The patient having occasional palpitations, otherwise only mild pain, no nausea or vomi ting. OBJECTIVE VITAL SIGNS: Temperature 98.2, pulse 60 and regular, respiratory rate is 19, blood pressure 117/59, oxygen saturation 98% on room air. GENERAL: Well-developed, well-nourished female in no acute distress, sitting up in bed. CHEST: Clear to auscultation bilaterally. HEART: Regular rate and rhythm without ectopy. ABDOMEN: Mild incisional tenderness in the left mid abdomen, normal active bowel sounds, nondistend ed. No rebound. EXTREMITIES: No cyanosis, clubbing, or edema. NEUROLOGIC: Nonfocal. LABORATORY DATA: Hemoglobin 11.0, hematocrit 34.3, white blood cell count 5.4, platelets of 225. S odium 138, potassium 4.3, chloride 109, bicarbonate 25, BUN 9, creatinine 0.48. Magnesium 2.2, calc ium 9.4, glucose 87. INR of 1.80 ASSESSMENT AND PLAN: 1. Microperforation diverticulitis of the sigmoid colon, status post partial laparoscopic cholecyst ectomy. The patient continues to do well and is stable for discharge home at this point. We will c ontinue with patient's current medications, p.r.n. Tylenol for pain, and activity as tolerated. The patient will follow up with Dr. Gamboa within 2 weeks of discharge, and follow up with me within 2 weeks as well. 2. Paroxysmal atrial fibrillation. Remains stable. Discharge the patient on diltiazem 15 mg q.i.d . and Digoxin 0.25 mg daily. 3. Asthma. Remains stable. We will discharge the patient on her routine medications. 4. Gastroesophageal reflux disease. Stable. Continue with the patient's diet and pantoprazole. 5. Sicca syndrome. Continue the patient's Restasis. 6. The patient will follow up with Dr. Neal, within 2 weeks of discharge and with Dr. Gamboa with in 2 weeks of discharge. Dictated By: NADEEM NEAL MD SR/NTS Conf#: [id number] DID#: [id number]
== END 2016-08-26 14:50 | disposition home or self-care (01) | DRG 330 ==
LOC: MERGE 12:15 → REC 12:15 → EDSTATUS 14:30 → MS1 21:05 → TEL 08-23 20:17
PROVIDERS: ADMIT Surgery; ATTEND Surgery
PROC: 0DBP4ZZ Excision of Rectum, Percutaneous Endoscopic Approach (ICD-10-PCS; 2016-08-18)
PROC: 0DNL4ZZ Release Transverse Colon, Percutaneous Endoscopic Approach (ICD-10-PCS; 2016-08-18)
PROC: 0DBN4ZZ Excision of Sigmoid Colon, Percutaneous Endoscopic Approach (ICD-10-PCS; principal; 2016-08-18 14:30)
DX: K57.20 Diverticulitis of large intestine with perforation and abscess without bleeding (principal); K56.0 Paralytic ileus; M48.50XA Collapsed vertebra, not elsewhere classified, site unspecified, initial encounter for fracture; I48.0 Paroxysmal atrial fibrillation; M35.00 Sjogren syndrome, unspecified; J45.30 Mild persistent asthma, uncomplicated; Z95.0 Presence of cardiac pacemaker; K21.9 Gastro-esophageal reflux disease without esophagitis; K44.9 Diaphragmatic hernia without obstruction or gangrene; M81.0 Age-related osteoporosis without current pathological fracture; I10 Essential (primary) hypertension; D64.9 Anemia, unspecified
CPT/HCPCS: 80048; 80053; 81001; 81003; 83735; 85025; 85610; 85730; 86850; 86900; 86901; 87086; 88305; 93005; 97116; 97163; 97530; J1100; J1650; J2250; J2270; J2405; J3010; J3475; J3480

== ENCOUNTER 2018-09-07 14:53 | Inpatient (IN) | payer BC, MEDICARE ==
[~2018-09-07] VITALS: Ht 152.4 cm; Wt 49.0 kg
[~2018-09-07 14:53] MED LIST changes: -AZIT250T6 PO; -BIOT10TA2 PO; -CARSR60 PO; -CLINDAMYCIN 600 MG/50 ML D5W IVPB IVPB ONE; -DIGO125T PO; -IPRA15SP NS; -LIDOCAINE 2% (SDV) 5 ML INJ ONE; -LORA10TA45 PO; -MOME0.132 INHALATION; -MONT5TAB12 PO; -PRED20TA PO; -ROCURONIUM 50 MG INJ ONE; -WARF6TAB PO; -metroNIDAZOLE 500 MG/100 ML NS IVPB ONE
[2018-09-07] MEDS ORDERED: morphine 2 MG INJ IV STA (15:55)
[2018-09-07] MEDS ORDERED: SOD CHLORIDE 0.9% 1,000 ML IV STA (15:55)
[2018-09-07] MEDS ORDERED: ONDANSETRON 4 MG INJ IV STA ×2 (15:55→17:32)
[2018-09-07] MEDS ORDERED: morphine 4 MG/ML VIAL IV STA (17:32)
[2018-09-07] MEDS ORDERED: morphine 4 MG/ML VIAL ONE (17:37)
[2018-09-07] MEDS ORDERED: DILT30TA30 ORAL (17:57)
[2018-09-07] MEDS ORDERED: LORA-186 PO (17:57)
[2018-09-07] MEDS ORDERED: ERGO80009 PO (17:57)
[2018-09-07] MEDS ORDERED: POTA20LI15 PO (17:57)
[2018-09-07] MEDS ORDERED: AZEL23SP NASAL (17:57)
--- NOTE | 2018-09-07 18:23 | ERD ---
ER Documentation Chief Complaint Chief Complaint SENT BY PMD FOR ABD PAIN AND NAUSEA AND VOMITING SINCE YESTERDAY. NO CP/SOB HPI 88-year-old female with a history of multiple abdominal surgeries presenting with abdominal pain since yesterday with associated nausea but no vomiting. She has also had associated constipation for the past 4 days but has been able to pass gas. She is complaining of 8 out of 10 pain in her lower abdomen that is constant, occasionally worse, with no alleviating or exacerbating factors. She spoke with her primary care doctor today, who referred her to the ER. No fevers or chills. No dysuria. ROS All systems reviewed and are negative except as per history of present illness. Medications Home Meds Reported Medications Ergocalciferol (Vitamin D2) (Ergocalciferol) 8,000 Unit/1 Ml Drops, 2000 UNIT PO DAILY, BOTTLE 09/07/18 Potassium Chloride* (Potassium Chloride*) 20 Meq/15 Ml Liquid, 2.5 ML PO DAILY, ML 09/07/18 Azelastine/Fluticasone (DYMISTA NASAL SPRAY) 23 Gm [place].pump, 1 SPRAY NASAL BID, #1 BOTTLE TO EACH NOSTRIL 09/07/18 Diltiazem Hcl* (Cardizem*) 30 Mg Tablet, 15 TAB ORAL TID 09/07/18 Loratadine* (Claritin*) 10 Mg Tablet, 10 MG PO QAM, TAB 09/07/18 Warfarin Sod (Coumadin) 5 Mg Tablet, 5 MG PO DAILY, TAB 02/05/15 Levalbuterol* (Xopenex* HFA) 15 Gm Inha, 1 PUFFS INH BID, EA 04/30/14 Montelukast Sodium* (Singulair*) 10 Mg Tablet, 10 MG PO HS, TAB 04/30/14 Cyclosporine* (Restasis* Oph) 32 Ea Droperette, 1 DROP BOTH EYES Q12, EA 04/30/14 Mometasone Furoate* (Asmanex*) 110 Mcg Aer.pow.ba, IH BID 09/05/12 Discontinued Reported Medications Magnesium Oxide* (Mag-Oxide*) 400 Mg Tablet, 400 MG PO DAILY, TAB 04/07/16 Cholecalciferol* (Vitamin D3*) 1,000 Unit Tablet, 2000 UNIT PO DAILY, TAB 04/07/16 Cholecalciferol (Vitamin D3) 2,000 Unit Tablet, PO BID 09/05/12 Cyclosporine* (Restasis* Oph) 32 Ea Droperette, BOTH EYES BID 09/05/12 Polyethylene Glycol* (Miralax*) 17 Gm Powd.pack, PO DAILY 09/05/12 Loratadine (Alavert) 10 Mg Tablet, PO BID 09/05/12 [dilatizem] 15 MG No Conflict Check, PO QID 09/05/12 Discontinued Scripts [place]-3 Fatty Acids/Fish Oil (Fish Oil 1,000 mg Capsule) 1 Each Capsule, 1 EACH PO DAILY for 30 Days, #30 CAP Prov:NADEEM NEAL MD- 08/26/16 Allergies Allergies: Coded Allergies: Penicillins (Verified Allergy, Severe, 09/07/18) Sulfa (Sulfonamide Antibiotics) (Verified Allergy, Severe, 09/07/18) Trimethobenzamide HCl (Verified Allergy, Severe, 09/07/18) swelling mouth throat aspirin (Verified Allergy, Severe, 09/07/18) anaphylaxis cefuroxime (Verified Allergy, Severe, 09/07/18) codeine (Verified Allergy, Severe, 09/07/18) anaphylaxis hydromorphone (Verified Allergy, Severe, PASS OUT, 08/25/16) hydromorphone HCl (Verified Allergy, Severe, 08/25/16) swelling throat iodine (Verified Allergy, Severe, 08/25/16) anaphylaxis latex (Verified Allergy, Severe, 08/25/16) anaphylaxis levofloxacin (Verified Allergy, Severe, 09/07/18) severe swelling throat telithromycin (Verified Allergy, Severe, ANAPHYLACTIC SHOCK, 09/07/18) trimethobenzamide (Verified Allergy, Severe, ANAPHYLACTIC SHOCK, 08/25/16) fluticasone (Verified Allergy, Mild, TACHYCARDIA (OK TO GIVE SIMILAR MEDS PER MD), 08/25/16) lactose (Verified Allergy, Mild, 08/25/16) salmeterol (Unverified Allergy, Mild, TACHYCARDIA (OK TO GIVE SIMILAR MEDS PER MD), 08/25/16) nut - unspecified (Unverified Allergy, Unknown, 09/07/18) Uncoded Allergies: SEAFOOD (Allergy, Severe, ANAPHYLAXIS, 01/12/10) NUTS (Allergy, Unknown, ANAPHYLAXIS, 09/07/18) PMhx/Soc History of Surgery: Yes (IAN FUNDOPLICATION, CATARACT OU, PACEMAKER, VENTRTAL HERNIA, Perforated diverticulum with a large intestine laparoscopic resection, hysterectomy, cholecystectomy) Anesthesia Reaction: No Hx Neurological Disorder: No Hx Respiratory Disorders: Yes (ASTHMA, ALLERGIC RHINITIS) Hx Cardiac Disorders: Yes (SICK SINUS SYNDROME, AFIB) Hx Psychiatric Problems: No Hx Miscellaneous Medical Probl: Yes (paroxysmal afib, SSS, asthma, perforated colon, pacemaker) Hx Alcohol Use: No Hx Substance Use: No Hx Tobacco Use: No Smoking Status: Never smoker FmHx Family History: No diabetes Physical Exam Vitals Vital Signs Date Temp Pulse Resp B/P (MAP) Pulse Ox O2 O2 Flow FiO2 Time Delivery Rate 09/07/18 98.5 69 15 188/77 99 Room Air 17:51 (114) 09/07/18 98.5 64 15 176/62 99 Room Air 16:56 (100) 09/07/18 98.5 88 15 182/73 99 Room Air 16:18 (109) 09/07/18 98.5 74 15 188/75 99 Room Air 15:24 (112) 09/07/18 98.5 68 18 180/100 99 14:54 (126) Physical Exam Const: In mild distress secondary to pain. Nontoxic Head: Atraumatic Eyes: Normal Conjunctiva ENT: Dry mucous membranes. Normal External Ears, Nose and Mouth. Neck: Full range of motion. No meningismus. Resp: Clear to auscultation bilaterally Cardio: Regular rate and rhythm, no murmurs. 2+ distal pulses Abd: Soft, diffuse TTP. mostly lower, without rebound or guarding. non distended. RLQ hernia, reducible. No other hernias noted. no skin changes. hyperactive bowel sounds Skin: No petechiae or rashes Back: No midline or flank tenderness Ext: No cyanosis, or edema Neur: Awake and alert Psych: Normal Mood and Affect Result Diagram: 09/07/18 1530 09/07/18 1530 Results 24 hrs Laboratory Tests Test 09/07/18 15:30 09/07/18 16:33 White Blood Count 18.1 10^3/ul Red Blood Count 4.59 10^6/ul Hemoglobin 13.0 g/dl Hematocrit 40.5 % Mean Corpuscular Volume 88.2 fl Mean Corpuscular Hemoglobin 28.3 pg Mean Corpuscular Hemoglobin Concent 32.1 g/dl Red Cell Distribution Width 14.1 % Platelet Count 233 10^3/UL Mean Platelet Volume 11.1 fl Immature Granulocytes % 0.400 % Neutrophils % 80.2 % Lymphocytes % 11.4 % Monocytes % 7.7 % Eosinophils % 0.0 % Basophils % 0.3 % Nucleated Red Blood Cells % 0.0 /100WBC Immature Granulocytes # 0.070 10^3/ul Neutrophils # 14.5 10^3/ul Lymphocytes # 2.1 10^3/ul Monocytes # 1.4 10^3/ul Eosinophils # 0.0 10^3/ul Basophils # 0.1 10^3/ul Nucleated Red Blood Cells # 0.0 10^3/ul Sodium Level 139 mmol/L Potassium Level 3.8 mmol/L Chloride Level 105 mmol/L Carbon Dioxide Level 26 mmol/L Anion Gap 8 Blood Urea Nitrogen 18 mg/dl Creatinine 0.50 mg/dl Est Glomerular Filtrat Rate mL/min mL/min Glucose Level 137 mg/dl Calcium Level 10.2 mg/dl Total Bilirubin 0.3 mg/dl Direct Bilirubin 0.00 mg/dl Indirect Bilirubin 0.3 mg/dl Aspartate Amino Transf (AST/SGOT) 20 IU/L Alanine Aminotransferase (ALT/SGPT) 16 IU/L Alkaline Phosphatase 77 IU/L Troponin I < 0.012 ng/ml Total Protein 7.1 g/dl Albumin 4.4 g/dl Globulin 2.70 g/dl Albumin/Globulin Ratio 1.62 Lipase 17 U/L Urine Color YELLOW Urine Clarity CLOUDY Urine pH 7.0 Urine Specific [place] 1.015 Urine Ketones NEGATIVE mg/dL Urine Nitrite NEGATIVE mg/dL Urine Bilirubin NEGATIVE mg/dL Urine Urobilinogen NEGATIVE mg/dL Urine Leukocyte Esterase TRACE Cesar/ul Urine Microscopic RBC 22 /HPF Urine Microscopic WBC 25 /HPF Urine Bacteria FEW /HPF Urine Hemoglobin 3+ mg/dL Urine Glucose NEGATIVE mg/dL Urine Total Protein NEGATIVE mg/dl Current Medications Medications Dose Sig/Ludmila Start Time Status Last (Trade) Ordered Route PRN Stop Time Admin Dose Reason Admin Sodium 1,000 ml @ Q1H STAT 09/07/18 DC 09/07/18 Chloride 1,000 mls/hr IV 15:55 16:12 09/07/18 16:54 Morphine 2 mg ONCE STAT 09/07/18 DC 09/07/18 Sulfate IV 15:55 16:11 (morphine) 09/07/18 15:58 Ondansetron 4 mg ONCE STAT 09/07/18 DC 09/07/18 HCl (Zofran IV 15:55 16:11 Inj) 09/07/18 15:58 Morphine 4 mg ONCE STAT 09/07/18 DC 09/07/18 Sulfate IV 17:32 17:45 (morphine) 09/07/18 17:33 Ondansetron 4 mg ONCE STAT 09/07/18 DC 09/07/18 HCl (Zofran IV 17:32 17:45 Inj) 09/07/18 17:33 Morphine 4 mg STK-MED 09/07/18 DC Sulfate ONCE .ROUTE 17:37 (morphine) 09/07/18 17:38 Procedures/MDM EMERGENT LABS AND DIAGNOSTIC STUDIES: Lab Results above were reviewed and interpreted by me. CBC: leukocytosis, concerning for possible infection CMP: No evidence of clinically significant electrolyte abnormality, acidosis, renal failure, hypoglycemia, liver disease, or biliary obstruction Troponin within normal limits, not indicative of cardiac ischemia UA: no evidence of infection 12-lead EKG was interpreted by Farhan Mercado MD: Demand pacemaker. Sinus bradycardia with fusion complexes and premature atrial complex LVH with QRS widening and repolarization abnormality No acute ST or T wave changes suggestive of acute ischemia or STEMI. Radiology Results as interpreted by Radiology below were reviewed by SPam Mercado MD: CXR shows no acute abnormalities CT Abdomen/Pelvis: Mid small bowel obstruction secondary to incarcerated left inguinal hernia. Initial Nursing notes reviewed. Previous Medical Records requested via the Electronic Health Record. EMERGENCY DEPARTMENT COURSE / MEDICAL DECISION MAKING: Patient presents with abdominal pain and constipation. Differential includes but is not limited to UTI, constipation, bowel ischemia, colitis, diverticulitis, SBO. Labs done and show leukocytosis likely due to a UTI. CT shows SBO, likely partial, with incarcerated hernia. Patient given IVFs, pain medications and antiemetics. I do not suspect severe sepsis or septic shock. Low suspicion for bowel ischemia or aortic dissection. I spoke with the surgeon global transportation manager who agrees to see the patient and requested NGT placement. Discussed case with Dr. Neal, who will admit patient. Requested telemetry due to her AFib. He will speak to ID about antibiotics options for UTI as patient has multiple allergies to antibiotics. Departure Diagnosis: Primary Impression: Incarcerated inguinal hernia, unilateral Additional Impressions: Partial small bowel obstruction Leukocytosis, unspecified UTI (urinary tract infection) Urinary tract infection type: site unspecified Hematuria presence: without hematuria Qualified Codes: N39.0 - Urinary tract infection, site not specified Condition: Serious JUAN MERCADO MD September 07, 2018 18:23
[2018-09-07] MEDS ORDERED: ACETAMINOPHEN 325 MG TAB PO PRN (18:30)
[2018-09-07] MEDS ORDERED: ONDANSETRON 4 MG INJ IV PRN (18:30)
[2018-09-07 20:52] VITALS: PULSE 73
[2018-09-07] MEDS: CYCLOSPORINE 0.05% OPH DROPERETTE BOTH EYES SCH (21:00)
[2018-09-07 21:30] VITALS: BP 193/91; PULSE 61; RESP 18
[2018-09-07] MEDS: POTASSIUM CHLORIDE 10 MEQ in SOD CHLORIDE 0.9% 1,000 ML IV SCH (21:30)
[2018-09-07] MEDS: ONDANSETRON 4 MG INJ IV PRN (21:38)
[2018-09-07] MEDS: morphine 2 MG INJ IV PRN (21:42)
[2018-09-07] MEDS: hydrALAzine 20 MG INJ IV PRN (23:08)
[2018-09-07] MEDS: MEROPENEM 1 GM/50ML(PMX) 50 ML IVPB SCH (23:11)
[2018-09-07] MEDS: DILTIAZEM 25 MG INJ IV SCH (23:20)
[2018-09-07 23:38] VITALS: BP 201/88; PULSE 68; RESP 20
[2018-09-08] VITALS (14 sets, daily range): BP systolic 113–236; BP diastolic 54–105; PULSE 60–71; RESP 16–20; Ht 152.4 cm; Wt 49.0 kg
[2018-09-08] MEDS: morphine 2 MG INJ IV PRN ×4 (01:52→23:16)
[2018-09-08] MEDS ORDERED: hydrALAzine 20 MG INJ IV ONE (02:30)
[2018-09-08] MEDS: ONDANSETRON 4 MG INJ IV PRN ×2 (04:34→10:45)
[2018-09-08] MEDS: DILTIAZEM 25 MG INJ IV SCH ×3 (05:48→23:47)
[2018-09-08] MEDS: MEROPENEM 1 GM/50ML(PMX) 50 ML IVPB SCH ×3 (05:48→21:58)
[2018-09-08] MEDS ORDERED: PANTOPRAZOLE 40 MG INJ IV SCH (06:00)
[2018-09-08] MEDS ORDERED: ENOXAPARIN 30 MG/0.3 ML SYG SC SCH (09:00)
[2018-09-08] MEDS: CYCLOSPORINE 0.05% OPH DROPERETTE BOTH EYES SCH ×2 (09:00→21:00)
[2018-09-08] MEDS: FAMOTIDINE 20 MG INJ IV SCH ×2 (09:07→21:53)
--- NOTE | 2018-09-08 10:29 | CONS ---
Assessment/Plan Assessment/Plan Assessment/Plan (Daily) 88-year-old female with multiple medical problems and past surgical history including bowel resection, ventral hernia, hysterectomy, cholecystectomy presents with abdominal pain CT consistent with partial SBO from incarcerated left inguinal hernia. Patient had leukocytosis of 18,000 however patient got steroid injection for trigger point injection just day before so this may represent elevation from steroid I discussed with patient regarding diagnosis and recommendations for treatment which include nasogastric tube IV fluids possible surgery. Patient has refused NG tube 3 times since last night. Since Dr. Gamboa has taken care of this patient a few times she did ask if I could call him and I have done that as well as spoken to Dr. villegas. Because of patient's cardiac atrial fibrillation and on Coumadin patient would not likely have surgery today and I think that she is stable enough that she can wait for medical prep and then Dr. Gamboa can assume care for tomorrow. Consultation Date/Type/Reason Admit Date/Time September 07, 2018 at 18:28 Date of Consultation: September 08, 2018 Type of Consult Surgery consult Reason for Consultation Abdominal pain, left inguinal hernia, partial SBO Requesting Provider: JUAN SCHERER MD Date/Time of Note DATE: 09/08/18 TIME: 10:28 Hx of Present Illness Patient referred to ER by her PMD Dr Neal, after abdominal pain which started yesterday morning . Patient has undergone several surgeries in the past. She underwent sigmoid resection July 2016 Dr. Gamboa and has had hernia repair by him as well. Patient denies any nausea vomiting though she had decreased bowel movements and with some distention. Per Dr. Neal she received a steroid injection on Sunday for back pain, which may explain leukocytosis which patient was noted to have on presentation. On evaluation in the emergency room she was noted on CAT scan to have a partial SBO which appear to be secondary to incar cerated left inguinal hernia. She has continued to pass flatus however and on evaluation with the SBO she was advised to have a nasogastric tube inserted but refused after 2 failed attempts initially and then 2 additional attempts. Patient has multiple medical issues including atrial fibrillation , COPD, pacemaker Past Medical History Past surgical history Roman fundoplication, cataracts, pacemaker, ventral hernia, sigmoid resection for perforated diverticulitis July 2016, hysterectomy, cholecystectomy Home Meds Reported Medications Ergocalciferol (Vitamin D2) (Ergocalciferol) 8,000 Unit/1 Ml Drops, 2000 UNIT PO DAILY, BOTTLE 09/07/18 Potassium Chloride* (Potassium Chloride*) 20 Meq/15 Ml Liquid, 2.5 ML PO DAILY, ML 09/07/18 Azelastine/Fluticasone (DYMISTA NASAL SPRAY) 23 Gm [place].pump, 1 SPRAY NASAL BID, #1 BOTTLE TO EACH NOSTRIL 09/07/18 Diltiazem Hcl* (Cardizem*) 30 Mg Tablet, 15 TAB ORAL TID 09/07/18 Loratadine* (Claritin*) 10 Mg Tablet, 10 MG PO QAM, TAB 09/07/18 Warfarin Sod (Coumadin) 5 Mg Tablet, 5 MG PO DAILY, TAB 02/05/15 Levalbuterol* (Xopenex* HFA) 15 Gm Inha, 1 PUFFS INH BID, EA 04/30/14 Montelukast Sodium* (Singulair*) 10 Mg Tablet, 10 MG PO HS, TAB 04/30/14 Cyclosporine* (Restasis* Oph) 32 Ea Drope[place], 1 DROP BOTH EYES Q12, EA 04/30/14 Mometasone Furoate* (Asmanex*) 110 Mcg Aer.pow.ba, IH BID 09/05/12 Discontinued Reported Medications Magnesium Oxide* (Mag-Oxide*) 400 Mg Tablet, 400 MG PO DAILY, TAB 04/07/16 Cholecalciferol* (Vitamin D3*) 1,000 Unit Tablet, 2000 UNIT PO DAILY, TAB 04/07/16 Cholecalciferol (Vitamin D3) 2,000 Unit Tablet, PO BID 09/05/12 Cyclosporine* (Restasis* Oph) 32 Ea Drope[place], BOTH EYES BID 09/05/12 Polyethylene Glycol* (Miralax*) 17 Gm Powd.pack, PO DAILY 09/05/12 Loratadine (Alavert) 10 Mg Tablet, PO BID 09/05/12 [dilatizem] 15 MG No Conflict Check, PO QID 09/05/12 Discontinued Scripts [place]-3 Fatty Acids/Fish Oil (Fish Oil 1,000 mg Capsule) 1 Each Capsule, 1 EACH PO DAILY for 30 Days, #30 CAP Prov:NADEEM NEAL MD- 08/26/16 Medications Current Medications Digoxin (Digoxin) 125 mcg DAILY@13 IV ; Start 09/08/18 at 13:00 Diltiazem HCl (Cardizem Iv) 15 mg Q6 IV Last administered on 09/08/18 05:48; Admin Dose 15 MG; Start 09/08/18 at 00:00 Cyclosporine (Restasis) 1 drop BID BOTH EYES ; Start 09/07/18 at 21:00 Ondansetron HCl (Zofran Inj) 4 mg Q6H PRN IV NAUSEA AND/OR VOMITING Last administered on 09/08/18 04:34; Admin Dose 4 MG; Start 09/07/18 at 21:30 Morphine Sulfate (morphine) 2 mg Q4H PRN IV PAIN LEVEL 6-10 Last administered on 09/08/18 09:07; Admin Dose 2 MG; Start 09/07/18 at 21:30 Enoxaparin Sodium (Lovenox) 30 mg DAILY SC ; Start 09/08/18 at 09:00; Status Hold Hydralazine HCl (Apresoline) 5 mg Q6H PRN IV SBP>180 OR DBP>100 Last administered on 09/07/18 23:08; Admin Dose 5 MG; Start 09/07/18 at 21:30 Potassium Chloride 10 meq/ Sodium Chloride 1,005 ml @ 100 mls/hr Q10H3M IV Last administered on 09/07/18 21:30; Admin Dose 100 MLS/HR; Start 09/07/18 at 21:30 Famotidine (Pepcid Iv) 20 mg Q12 IV Last administered on 09/08/18 09:07; Admin Dose 20 MG; Start 09/08/18 at 09:00 Meropenem/Sodium Chloride 50 ml @ 100 mls/hr Q8 IVPB Last administered on 09/08/18 05:48; Admin Dose 100 MLS/HR; Start 09/07/18 at 22:00 Allergies: Coded Allergies: Penicillins (Verified Allergy, Severe, 09/07/18) Sulfa (Sulfonamide Antibiotics) (Verified Allergy, Severe, 09/07/18) Trimethobenzamide HCl (Verified Allergy, Severe, 09/07/18) swelling mouth throat aspirin (Verified Allergy, Severe, 09/07/18) anaphylaxis cefuroxime (Verified Allergy, Severe, 09/07/18) codeine (Verified Allergy, Severe, 09/07/18) anaphylaxis hydromorphone (Verified Allergy, Severe, PASS OUT, 08/25/16) hydromorphone HCl (Verified Allergy, Severe, 08/25/16) swelling throat iodine (Verified Allergy, Severe, 08/25/16) anaphylaxis latex (Verified Allergy, Severe, 08/25/16) anaphylaxis levofloxacin (Verified Allergy, Severe, 09/07/18) severe swelling throat telithromycin (Verified Allergy, Severe, ANAPHYLACTIC SHOCK, 09/07/18) trimethobenzamide (Verified Allergy, Severe, ANAPHYLACTIC SHOCK, 08/25/16) fluticasone (Verified Allergy, Mild, TACHYCARDIA (OK TO GIVE SIMILAR MEDS PER MD), 08/25/16) lactose (Verified Allergy, Mild, 08/25/16) salmeterol (Unverified Allergy, Mild, TACHYCARDIA (OK TO GIVE SIMILAR MEDS PER MD), 08/25/16) nut - unspecified (Unverified Allergy, Unknown, 09/07/18) Uncoded Allergies: SEAFOOD (Allergy, Severe, ANAPHYLAXIS, 01/12/10) NUTS (Allergy, Unknown, ANAPHYLAXIS, 09/07/18) Past Surgical History Past Surgical Hx: bowel resection (Sigmoid resection July 2016, hernia repair x2 ventral), other Social History Smoking Status: Never smoker Exam/Review of Systems Exam Vitals Vital Signs Date Temp Pulse Resp B/P (MAP) Pulse Ox O2 O2 Flow FiO2 Time Delivery Rate 09/08/18 63 08:01 09/08/18 97.9 20 124/61 95 Nasal 07:20 (82) Cannula 09/08/18 2.0 28 01:12 Intake and Output 09/07/18 09/07/18 09/08/18 1515:00 23:00 07:00 IntakeIntake Total 600 ml BalanceBalance 600 ml Exam Patient is awake alert somewhat hard of hearing. Denies abdominal pain. States that she is passing flatus. Denies nausea at this time slightly distended abdomen. Patient states that she does not want to have an NG tube. Lungs clear anteriorly heart regular regular. Abdomen soft slightly distended there is a left inguinal hernia which is nontender no erythema. Results Result Diagram: 09/08/18 0521 09/08/18 0521 Results 24hrs Laboratory Tests Test 09/07/18 15:30 09/07/18 16:33 09/08/18 05:21 09/08/18 09:45 White Blood Count 18.1 #H 18.9 H Red Blood Count 4.59 # 4.62 Hemoglobin 13.0 13.1 Hematocrit 40.5 40.6 Mean Corpuscular 88.2 87.9 Volume Mean Corpuscular 28.3 L 28.4 L Hemoglobin Mean Corpuscular 32.1 32.3 Hemoglobin Concent Red Cell 14.1 14.3 Distribution Width Platelet Count 233 235 Mean Platelet Volume 11.1 H 10.5 H Immature 0.400 0.500 H Granulocytes % Neutrophils % 80.2 H 87.2 H Lymphocytes % 11.4 L 5.4 L Monocytes % 7.7 6.7 Eosinophils % 0.0 0.0 Basophils % 0.3 0.2 Nucleated Red Blood 0.0 0.0 Cells % Immature 0.070 H 0.090 H Granulocytes # Neutrophils # 14.5 H 16.5 H Lymphocytes # 2.1 1.0 Monocytes # 1.4 H 1.3 H Eosinophils # 0.0 0.0 Basophils # 0.1 0.0 Nucleated Red Blood 0.0 0.0 Cells # Sodium Level 139 138 Potassium Level 3.8 3.9 Chloride Level 105 110 Carbon Dioxide Level 26 25 Anion Gap 8 3 L Blood Urea Nitrogen 18 14 Creatinine 0.50 0.46 Est Glomerular Filtrat Rate mL/min Glucose Level 137 123 Calcium Level 10.2 9.2 Total Bilirubin 0.3 0.4 Direct Bilirubin 0.00 0.00 Indirect Bilirubin 0.3 0.4 Aspartate Amino 20 15 Transf (AST/SGOT) Alanine 16 20 Aminotransferase (AL T/SGPT) Alkaline Phosphatase 77 67 Troponin I < 0.012 Total Protein 7.1 5.8 #L Albumin 4.4 3.4 # Globulin 2.70 2.40 Albumin/Globulin 1.62 1.41 Ratio Lipase 17 L Urine Color YELLOW Urine Clarity CLOUDY A Urine pH 7.0 Urine Specific 1.015 [place] Urine Ketones NEGATIVE Urine Nitrite NEGATIVE Urine Bilirubin NEGATIVE Urine Urobilinogen NEGATIVE Urine Leukocyte TRACE A Esterase Urine Microscopic 22 H RBC Urine Microscopic 25 H WBC Urine Bacteria FEW A Urine Hemoglobin 3+ H Urine Glucose NEGATIVE Urine Total Protein NEGATIVE Magnesium Level 2.0 Digoxin Level 0.4 L Prothrombin Time 27.4 H Prothrombin Time 2.1 Ratio INR International 2.54 Normalized Ratio Medications Medication Current Medications Digoxin (Digoxin) 125 mcg DAILY@13 IV ; Start 09/08/18 at 13:00 Diltiazem HCl (Cardizem Iv) 15 mg Q6 IV Last administered on 09/08/18 05:48; Admin Dose 15 MG; Start 09/08/18 at 00:00 Cyclosporine (Restasis) 1 drop BID BOTH EYES ; Start 09/07/18 at 21:00 Ondansetron HCl (Zofran Inj) 4 mg Q6H PRN IV NAUSEA AND/OR VOMITING Last administered on 09/08/18 04:34; Admin Dose 4 MG; Start 09/07/18 at 21:30 Morphine Sulfate (morphine) 2 mg Q4H PRN IV PAIN LEVEL 6-10 Last administered on 09/08/18 09:07; Admin Dose 2 MG; Start 09/07/18 at 21:30 Enoxaparin Sodium (Lovenox) 30 mg DAILY SC ; Start 09/08/18 at 09:00; Status Hold Hydralazine HCl (Apresoline) 5 mg Q6H PRN IV SBP>180 OR DBP>100 Last administered on 09/07/18 23:08; Admin Dose 5 MG; Start 09/07/18 at 21:30 Potassium Chloride 10 meq/ Sodium Chloride 1,005 ml @ 100 mls/hr Q10H3M IV Last administered on 09/07/18 21:30; Admin Dose 100 MLS/HR; Start 09/07/18 at 21:30 Famotidine (Pepcid Iv) 20 mg Q12 IV Last administered on 09/08/18 09:07; Admin Dose 20 MG; Start 09/08/18 at 09:00 Meropenem/Sodium Chloride 50 ml @ 100 mls/hr Q8 IVPB Last administered on 09/08/18 05:48; Admin Dose 100 MLS/HR; Start 09/07/18 at 22:00 JORDAN GRANT MD September 08, 2018 10:29
[2018-09-08] MEDS: POTASSIUM CHLORIDE 10 MEQ in SOD CHLORIDE 0.9% 1,000 ML IV SCH ×2 (10:36→17:36)
--- NOTE | 2018-09-08 11:56 | RADRPT ---
Vent Rate: 71 bpm RR Interval: 0 msec NM Interval: 184 msec QRS Duration: 146 msec QT Interval: 442 msec QTC Interval: 480 msec P-R-T [place]: 0 - 73 - 0 degrees Demand pacemaker, interpretation is based on intrinsic rhythm Sinus bradycardia with fusion complexes and Possible premature atrial complexes with aberrant conduction Left ventricular hypertrophy with QRS widening and repolarization abnormality Abnormal ECG Electronically Signed By: *[facility]
[2018-09-08] MEDS ORDERED: PHYTONADIONE 10 MG in DEXTROSE 5% 50 ML IVPB ONE ×2 (12:30→21:00)
[2018-09-08] MEDS: DIGOXIN 500 MCG INJ IV SCH (12:38)
--- NOTE | 2018-09-08 12:54 | RADRPT ---
Echocardiogram Report Patient Name: CORINNA GONCALVESPatient ID: [id number] : [id number] (88y 3m)Study Date: 09/08/2018 9:59:12 AM Gender: FAccession #: [id number] Tech: PA Location: 632 Ref.Physician: JONES LONG Height(Cm): BSA: Weight(Kg): Quality: AdequateOrder Physician: JONES LONG Account #: Procedures: Echocardiographic Report: Transthoracic echocardiogram with complete 2D, M-Mode, and doppler examination. Indications: Pre-op. Measurements: 2D/M Mode Doppler Measurement Value Normal Range Measurement Value Normal Range LVIDd 2D 2.8 [ 3.8 - 5.2 ] cm AV Peak Elijah 1.6 [ 100.0 - 170.0 ] cm/sec LVIDs 2D 1.9 [ 2.2 - 3.5 ] cm AV Peak PG 10.0 [ 2.0 - 9.0 ] mmHg LVPWd 2D 1.0 [ 0.6 - 0.9 ] cm AI Peak PG 28.0 mmHg IVSd 2D 1.1 [ 0.6 - 0.9 ] cm AI Peak Elijah 2.7 cm/sec AoR Diam 2D 2.1 [ 2.3 - 3.1 ] cm AI PHT 703.0 msec EDV 2D 29.6 [ 46.0 - 106.0 ] ml LVOT Peak Elijah 1.3 [ 70.0 - 110.0 ] cm/sec ESV 2D 11.0 [ 14.0 - 42.0 ] ml LVOT Peak PG 6.0 [ 2.0 - 6.0 ] mmHg EF 2D 62.8 [ 54.0 - 74.0 ] percent MV E Peak Elijah 0.7 [ 60.0 - 130.0 ] cm/sec LA Dimen 2D 2.7 [ 2.7 - 3.8 ] cm MV A Peak Elijah 1.0 [ 100.0 - 120.0 ] cm/sec MV E/A 0.6 [ 0.8 - 1.5 ] ratio MV Decel Time 275 [ 104 - 258 ] msec Lat E` Elijah 0.1 [ 10.0 - 15.0 ] cm/sec Lateral E/E` 5.7 [ 1.0 - 2.0 ] ratio MV E/A 0.6 [ 0.8 - 1.5 ] ratio Findings: Left Ventricle: Normal left ventricular systolic function. Normal left ventricular cavity size. Mild concentric left ventricular hypertrophy. Ejection fraction is visually estimated at 60 %. Tissue Doppler/Mitral Doppler indices are consistent with impaired relaxation (Stage I diastolic dysfunction). Right Ventricle: Normal right ventricular size. Normal right ventricular systolic function. Linear artifact in right ventricle suggestive of catheter, pacer lead, or ICD lead. Left Atrium: The left atrium is normal in size. Right Atrium: The right atrium is normal in size. Mitral Valve: Normal appearance of the mitral valve. Mild mitral annular calcification. Trace mitral regurgitation. Aortic Valve: No hemodynamically significant aortic stenosis by doppler. Aortic cusps appear mildly calcified. Mild aortic valve regurgitation. Tricuspid Valve: Normal appearance and function of the tricuspid valve with trace physiologic regurgitation. Pulmonic Valve: Pulmonic valve not well visualized. Pericardium: Normal pericardium with no significant pericardial effusion. Aorta: Normal aortic root. IVC: The IVC is not well visualized. Conclusions: Normal left ventricular systolic function. Normal left ventricular cavity size. Mild concentric left ventricular hypertrophy. Ejection fraction is visually estimated at 60 %. Tissue Doppler/Mitral Doppler indices are consistent with impaired relaxation (Stage I diastolic dysfunction). Normal right ventricular size. Normal right ventricular systolic function. Linear artifact in right ventricle suggestive of catheter, pacer lead, or ICD lead. The left atrium is normal in size. The right atrium is normal in size. No hemodynamically significant aortic stenosis by doppler. Mild aortic valve regurgitation. No significant valvular stenosis or regurgitation seen of remaining visualized valves. Normal pericardium with no significant pericardial effusion. Electronically Signed By: Jones Long 2018-09-08 12:53:36 PDT
--- NOTE | 2018-09-08 13:13 | CONS ---
Assessment/Plan Assessment/Plan Hospital Course (Demo Recall) Preoperative cardiac risk stratification Small bowel obstruction with incarcerated hernia as per surgery Paroxysmal atrial fibrillation, currently sinus rhythm Preserved left ventricular ejection fraction History of pacemaker Coagulopathy, secondary to Coumadin Patient with small bowel obstruction and incarcerated hernia as per surgery. Plan for surgery but INR is currently elevated. Patient has been given vitamin K by primary physician. Patient denies exertional chest pain or shortness of breath. ECG with no significant ischemic abnormalities, echocardiogram with preserved ejection fraction, telemetry with sinus rhythm and intermittent a paced rhythm. Given her risk factors, patient is an intermediate risk for any untoward cardiac events for abdominal surgery, the benefits likely outweigh the risks. Patient is optimized at the current time. Would continue IV Cardizem but at a lower dose given her heart rate is currently in the low 60s. I will make the dose adjustment. Consultation Date/Type/Reason Admit Date/Time September 07, 2018 at 18:28 Type of Consult Cardiology Reason for Consultation Preoperative cardiac risk stratification Date/Time of Note DATE: 09/08/18 TIME: 13:06 Hx of Present Illness This is an 88-year-old female with past medical history of paroxysmal atrial fibrillation, hypertension, pacemaker who presents with abdominal pain. Patient found to have a small bowel obstruction and likely incarcerated hernia. Cardiology consultation was requested for preoperative cardiac risk stratification. She denies any symptoms of chest pain or shortness of breath currently. She does complain sometimes at nighttime she gets few palpitations and shortness of breath. She denies exertional chest pain or shortness of breath. She denies any dizziness or lightheadedness 12 point review of systems was performed with all pertinent positives and negatives mentioned above and all else is negative Past Medical History Paroxysmal atrial fibrillation Hypertension Home Meds Reported Medications Ergocalciferol (Vitamin D2) (Ergocalciferol) 8,000 Unit/1 Ml Drops, 2000 UNIT PO DAILY, BOTTLE 09/07/18 Potassium Chloride* (Potassium Chloride*) 20 Meq/15 Ml Liquid, 2.5 ML PO DAILY, ML 09/07/18 Azelastine/Fluticasone (DYMISTA NASAL SPRAY) 23 Gm [place].pump, 1 SPRAY NASAL BID, #1 BOTTLE TO EACH NOSTRIL 09/07/18 Diltiazem Hcl* (Cardizem*) 30 Mg Tablet, 15 TAB ORAL TID 09/07/18 Loratadine* (Claritin*) 10 Mg Tablet, 10 MG PO QAM, TAB 09/07/18 Warfarin Sod (Coumadin) 5 Mg Tablet, 5 MG PO DAILY, TAB 02/05/15 Levalbuterol* (Xopenex* HFA) 15 Gm [place]ha, 1 PUFFS INH BID, EA 04/30/14 Montelukast Sodium* (Singulair*) 10 Mg Tablet, 10 MG PO HS, TAB 04/30/14 Cyclosporine* (Restasis* Oph) 32 Ea [place], 1 DROP BOTH EYES Q12, EA 04/30/14 Mometasone Furoate* (Asmanex*) 110 Mcg Aer.pow.ba, IH BID 09/05/12 Discontinued Reported Medications Magnesium Oxide* (Mag-Oxide*) 400 Mg Tablet, 400 MG PO DAILY, TAB 04/07/16 Cholecalciferol* (Vitamin D3*) 1,000 Unit Tablet, 2000 UNIT PO DAILY, TAB 04/07/16 Cholecalciferol (Vitamin D3) 2,000 Unit Tablet, PO BID 09/05/12 Cyclosporine* (Restasis* Oph) 32 Ea [place], BOTH EYES BID 09/05/12 Polyethylene Glycol* (Miralax*) 17 Gm Powd.pack, PO DAILY 09/05/12 Loratadine (Alavert) 10 Mg Tablet, PO BID 09/05/12 [dilatizem] 15 MG No Conflict Check, PO QID 09/05/12 Discontinued Scripts [place]-3 Fatty Acids/Fish Oil (Fish Oil 1,000 mg Capsule) 1 Each Capsule, 1 EACH PO DAILY for 30 Days, #30 CAP Prov:NADEEM HAMILTON MD- 08/26/16 Medications Current Medications Digoxin (Digoxin) 125 mcg DAILY@13 IV Last administered on 09/08/18at 12:38; Admin Dose 125 MCG; Start 09/08/18 at 13:00 Diltiazem HCl (Cardizem Iv) 15 mg Q6 IV Last administered on 09/08/18at 05:48; Admin Dose 15 MG; Start 09/08/18 at 00:00 Cyclosporine (Restasis) 1 drop BID BOTH EYES ; Start 09/07/18 at 21:00 Ondansetron HCl (Zofran Inj) 4 mg Q6H PRN IV NAUSEA AND/OR VOMITING Last administered on 09/08/18 10:45; Admin Dose 4 MG; Start 09/07/18 at 21:30 Morphine Sulfate (morphine) 2 mg Q4H PRN IV PAIN LEVEL 6-10 Last administered on 09/08/18 09:07; Admin Dose 2 MG; Start 09/07/18 at 21:30 Enoxaparin Sodium (Lovenox) 30 mg DAILY SC ; Start 09/08/18 at 09:00; Status Hold Hydralazine HCl (Apresoline) 5 mg Q6H PRN IV SBP>180 OR DBP>100 Last administered on 09/07/18 23:08; Admin Dose 5 MG; Start 09/07/18 at 21:30 Potassium Chloride 10 meq/ Sodium Chloride 1,005 ml @ 100 mls/hr Q10H3M IV Last administered on 09/08/18 10:36; Admin Dose 100 MLS/HR; Start 09/07/18 at 21:30 Famotidine (Pepcid Iv) 20 mg Q12 IV Last administered on 09/08/18 09:07; Admin Dose 20 MG; Start 09/08/18 at 09:00 Meropenem/Sodium Chloride 50 ml @ 100 mls/hr Q8 IVPB Last administered on 09/08/18 05:48; Admin Dose 100 MLS/HR; Start 09/07/18 at 22:00 Mometasone Furoate (Asmanex) 1 puff BID RESP THERAPY INH ; Start 09/08/18 at 20:00 Levalbuterol (Xopenex Neb) 0.63 mg Q6H RESP THERAPY PRN HHN sob or wheezing; S tart 09/08/18 at 12:30 Allergies: Coded Allergies: Penicillins (Verified Allergy, Severe, 09/07/18) Sulfa (Sulfonamide Antibiotics) (Verified Allergy, Severe, 09/07/18) Trimethobenzamide HCl (Verified Allergy, Severe, 09/07/18) swelling mouth throat aspirin (Verified Allergy, Severe, 09/07/18) anaphylaxis cefuroxime (Verified Allergy, Severe, 09/07/18) codeine (Verified Allergy, Severe, 09/07/18) anaphylaxis hydromorphone (Verified Allergy, Severe, PASS OUT, 08/25/16) hydromorphone HCl (Verified Allergy, Severe, 08/25/16) swelling throat iodine (Verified Allergy, Severe, 08/25/16) anaphylaxis latex (Verified Allergy, Severe, 08/25/16) anaphylaxis levofloxacin (Verified Allergy, Severe, 09/07/18) severe swelling throat telithromycin (Verified Allergy, Severe, ANAPHYLACTIC SHOCK, 09/07/18) trimethobenzamide (Verified Allergy, Severe, ANAPHYLACTIC SHOCK, 08/25/16) fluticasone (Verified Allergy, Mild, TACHYCARDIA (OK TO GIVE SIMILAR MEDS PER MD), 08/25/16) lactose (Verified Allergy, Mild, 08/25/16) salmeterol (Unverified Allergy, Mild, TACHYCARDIA (OK TO GIVE SIMILAR MEDS PER MD), 08/25/16) nut - unspecified (Unverified Allergy, Unknown, 09/07/18) Uncoded Allergies: SEAFOOD (Allergy, Severe, ANAPHYLAXIS, 01/12/10) NUTS (Allergy, Unknown, ANAPHYLAXIS, 09/07/18) Past Surgical History Past Surgical Hx: bowel resection (Sigmoid resection July 2016, hernia repair x2 ventral), other (Pacemaker, numerous abdominal surgeries) Social History Smoking Status: Never smoker Exam/Review of Systems Vital Signs Vitals Vital Signs Date Temp Pulse Resp B/P (MAP) Pulse Ox O2 O2 Flow FiO2 Time Delivery Rate 09/08/18 98.8 64 20 133/54 96 Nasal 11:03 (80) Cannula 09/08/18 2.0 28 01:12 Intake and Output 09/07/18 09/07/18 09/08/18 1515:00 23:00 07:00 IntakeIntake Total 600 ml BalanceBalance 600 ml Exam Constitutional: alert, oriented (No apparent distress) Head: normocephalic Respiratory: other (Coarse breath sounds bilaterally, no wheezing) Cardiovascular: regular rate and rhythm (S1-S2 heard) Gastrointestinal: soft, bowel sounds, other (Discomfort with palpation) Extremities: other (No significant edema) Labs Result Diagram: 09/08/1852009/08/18520 Results 24hrs Laboratory Tests Test 09/07/18 15:30 09/07/18 16:33 09/08/18 05:21 09/08/18 09:45 White Blood Count 18.1 #H 18.9 H Red Blood Count 4.59 # 4.62 Hemoglobin 13.0 13.1 Hematocrit 40.5 40.6 Mean Corpuscular 88.2 87.9 Volume Mean Corpuscular 28.3 L 28.4 L Hemoglobin Mean Corpuscular 32.1 32.3 Hemoglobin Concent Red Cell 14.1 14.3 Distribution Width Platelet Count 233 235 Mean Platelet Volume 11.1 H 10.5 H Immature 0.400 0.500 H Granulocytes % Neutrophils % 80.2 H 87.2 H Lymphocytes % 11.4 L 5.4 L Monocytes % 7.7 6.7 Eosinophils % 0.0 0.0 Basophils % 0.3 0.2 Nucleated Red Blood 0.0 0.0 Cells % Immature 0.070 H 0.090 H Granulocytes # Neutrophils # 14.5 H 16.5 H Lymphocytes # 2.1 1.0 Monocytes # 1.4 H 1.3 H Eosinophils # 0.0 0.0 Basophils # 0.1 0.0 Nucleated Red Blood 0.0 0.0 Cells # Sodium Level 139 138 Potassium Level 3.8 3.9 Chloride Level 105 110 Carbon Dioxide Level 26 25 Anion Gap 8 3 L Blood Urea Nitrogen 18 14 Creatinine 0.50 0.46 Est Glomerular Filtrat Rate mL/min Glucose Level 137 123 Calcium Level 10.2 9.2 Total Bilirubin 0.3 0.4 Direct Bilirubin 0.00 0.00 Indirect Bilirubin 0.3 0.4 Aspartate Amino 20 15 Transf (AST/SGOT) Alanine 16 20 Aminotransferase (AL T/SGPT) Alkaline Phosphatase 77 67 Troponin I < 0.012 Total Protein 7.1 5.8 #L Albumin 4.4 3.4 # Globulin 2.70 2.40 Albumin/Globulin 1.62 1.41 Ratio Lipase 17 L Urine Color YELLOW Urine Clarity CLOUDY A Urine pH 7.0 Urine Specific 1.015 [place] Urine Ketones NEGATIVE Urine Nitrite NEGATIVE Urine Bilirubin NEGATIVE Urine Urobilinogen NEGATIVE Urine Leukocyte TRACE A Esterase Urine Microscopic 22 H RBC Urine Microscopic 25 H WBC Urine Bacteria FEW A Urine Hemoglobin 3+ H Urine Glucose NEGATIVE Urine Total Protein NEGATIVE Magnesium Level 2.0 Digoxin Level 0.4 L Prothrombin Time 27.4 H Prothrombin Time 2.1 Ratio INR International 2.54 Normalized Ratio Imaging Imaging ECG intermittent a paced, PVC, no significant ischemic ST abnormalities Medications Medications Current Medications Digoxin (Digoxin) 125 mcg DAILY@13 IV Last administered on 09/08/18at 12:38; Admin Dose 125 MCG; Start 09/08/18 at 13:00 Diltiazem HCl (Cardizem Iv) 15 mg Q6 IV Last administered on 09/08/18 05:48; Admin Dose 15 MG; Start 09/08/18 at 00:00 Cyclosporine (Restasis) 1 drop BID BOTH EYES ; Start 09/07/18 at 21:00 Ondansetron HCl (Zofran Inj) 4 mg Q6H PRN IV NAUSEA AND/OR VOMITING Last administered on 09/08/18 10:45; Admin Dose 4 MG; Start 09/07/18 at 21:30 Morphine Sulfate (morphine) 2 mg Q4H PRN IV PAIN LEVEL 6-10 Last administered on 09/08/18 09:07; Admin Dose 2 MG; Start 09/07/18 at 21:30 Enoxaparin Sodium (Lovenox) 30 mg DAILY SC ; Start 09/08/18 at 09:00; Status Hold Hydralazine HCl (Apresoline) 5 mg Q6H PRN IV SBP>180 OR DBP>100 Last administered on 09/07/18at 23:08; Admin Dose 5 MG; Start 09/07/18 at 21:30 Potassium Chloride 10 meq/ Sodium Chloride 1,005 ml @ 100 mls/hr Q10H3M IV Last administered on 09/08/18 10:36; Admin Dose 100 MLS/HR; Start 09/07/18 at 21:30 Famotidine (Pepcid Iv) 20 mg Q12 IV Last administered on 09/08/18 09:07; Admin Dose 20 MG; Start 09/08/18 at 09:00 Meropenem/Sodium Chloride 50 ml @ 100 mls/hr Q8 IVPB Last administered on 09/08/18 05:48; Admin Dose 100 MLS/HR; Start 09/07/18 at 22:00 Mometasone Furoate (Asmanex) 1 puff BID RESP THERAPY INH ; Start 09/08/18 at 20:00 Levalbuterol (Xopenex Neb) 0.63 mg Q6H RESP THERAPY PRN HHN sob or wheezing; Start 09/08/18 at 12:30 Jones Long DO September 08, 2018 13:13
[2018-09-08] MEDS: LEVALBUTEROL (NEB) 0.63 MG/3 ML AMP HHN PRN (16:42)
--- NOTE | 2018-09-08 17:14 | HP ---
DATE OF ADMISSION: 09/07/2018 ADMITTING DIAGNOSIS: Small-bowel obstruction secondary to incarcerated left inguinal hernia. HISTORY OF PRESENT ILLNESS: The patient is an 88-year-old female with paroxysmal AFib, hypertension, moderate persistent asthma, gastroesophageal reflux disease, who presented to the emergency room with abdominal pain, nausea, vomiting and weakness. The patient called me yesterday after having episodes of nausea, vomiting and distended abdomen that was tense. I sent the patient to the emergency room for evaluation. The patient was found to have partial small- bowel obstruction and was still passing gas at that time. Abdominal CT scan with SBO secondary to incarcerated left inguinal hernia and she had a right inguinal hernia containing nonobstructed small bowel. The patient was placed on IV fluids, was made n.p.o. but she refused NG tube placement multiple times despite our discussions with the patient. The patient had no further nausea and vomiting, but continued to have some abdominal pain and distention but did improve clinically since her presentation to the emergency room. The patient continues to have pain, but it is minimal and needing p.r.n., morphine at this time. REVIEW OF SYSTEMS: No fevers, chills or night sweats. The patient does have some intermittent palpitations, mild shortness of breath but no chest pain. PAST MEDICAL HISTORY: Significant for paroxysmal AFib, moderate persistent asthma, diverticulosis with history of perforation and subsequent bowel surgery, sick sinus syndrome, status post permanent pacemaker placement, gastroesophageal reflux disease, hiatal hernia, osteoporosis, lumbar and cervical spondylosis, allergic rhinitis, venous insufficiency, sicca syndrome. PAST SURGICAL HISTORY: Status post Roman fundoplication, status post bilateral cataract extractions, status post permanent pacemaker placement for sick sinus syndrome, status post ventral hernia repair x2, status post retinal detachment repair x2 and status post radioablation for cardiac arrhythmia, and status post partial large bowel resection for diverticulosis with perforation. FAMILY HISTORY: Noncontributory. ALLERGIES: SHE IS ANAPHYLACTIC TO PENICILLIN, SULFA, TIGAN, DILAUDID AND ALL NUTS. MODERATE ALLERGIC TO LATEX, KETEK, CEFUROXIME, ASPIRIN, CODEINE, LEVAQUIN AND IODINE. 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 No tobacco, no alcohol use. MEDICATIONS: 1. Singulair 10 mg daily. 2. Pantoprazole 40 mg daily. 3. Coumadin 5 mg daily. 4. Diltiazem 15 mg q.i.d. 5. Hydrochlorothiazide 12.5 mg daily. 6. Vitamin D 2000 International Units daily. 7. Xopenex inhaler p.r.n. 8. Alavert 10 mg daily. 9. Restasis b.i.d. 10. She is on Digoxin 0.125 mg p.o. daily. 11. Potassium chloride p.r.n. 12. Loratadine 10 mg daily. 13. Dymista b.i.d. 14. Asmanex 110 mcg b.i.d. PHYSICAL EXAMINATION: VITAL SIGNS: In the emergency room, temperature is 98.5, pulse 68, respirations 18, blood pressure 180/100, oxygen saturation 99% on room air. At the time of this dictation, the patient has a temperature 98.8, pulse is 64, respirations 20, blood pressure 133/54, oxygen saturation 96% on 2 liter nasal cannula oxygen. GENERAL: Well-developed, ill-appearing female in no acute distress, lying in bed. HEENT: EOMI, PERRLA. Oropharynx with decreased mucous pooling, otherwise clear. NECK: No jugular venous distention, 2+ carotid upstroke without bruits. There is decreased range of motion in all directions. No lymphadenopathy, no thyromegaly. CHEST: Clear to auscultation bilaterally but increased expiratory phase. HEART: Regular rate and rhythm. No murmurs, gallops, rubs noted. No elevated jugular venous pressure. ABDOMEN: Decreased bowel sounds. It is soft. There is no rebound tenderness. There is a reducible hernia in the right lower quadrant. There is a ventral hernia above the umbilicus that is reducible and in the left lower quadrant, there is tenderness to palpation with hernia present. EXTREMITIES: No cyanosis, clubbing. There is trace edema. GENITOURINARY: Not performed. NEUROLOGIC: Nonfocal. LABORATORY EXAMINATION: Initial white blood cell count 18.1 thousand, which is increased to 18.9, platelet count of 235 today, hemoglobin of 13.1, hematocrit of 40.2. PT is 27.4, INR is 2.54. Sodium was 138, potassium 3.9, chloride 110, bicarbonate 25, BUN of 14, creatinine 0.46, glucose of 123, calcium of 9.2, magnesium 2.0, AST 15, ALT of 20, alkaline phosphatase 67. Troponin less than 0.012, albumin 3.4. Lipase is 17. Digoxin level 0.4. Urinalysis shows 22 red blood cells, 25 white blood cells, few bacteria, 3+ hemoglobin, trace leukocyte esterase, negative nitrite. IMAGING: Chest x-ray shows no acute cardiopulmonary disease, no infiltrates. Abdominal pelvic CT scan without contrast shows mild small-bowel obstruction secondary to incarcerated left inguinal hernia with severely distended small bowel with transition of loop of bowel contained within the left inguinal hernia. There is a right inguinal hernia containing nonobstructed small bowel. Multiple chronic compression fractures of the spine. Abdominal x-ray done today shows no findings of free air or bowel perforation gas-filled loops of small bowel and stomach suggesting a persistent small-bowel obstruction. No interval change. ASSESSMENT AND PLAN: The patient is an 88-year-old female with paroxysmal AFib, hypertension, moderate persistent asthma, gastroesophageal reflux disease, who was admitted for a partial small-bowel obstruction to telemetry. The patient currently with elevated PT/INR as well and is admitted to telemetry. 1. Small-bowel obstruction. The patient has refused nasogastric tube placement on multiple occasions, but at this time with elevated INR may cause significant bleeding and bruising within the esophagus and we will await vitamin K and repeat the PT/INR later to see if it is more safe to place a nasogastric tube. The patient will be given IV fluids, IV antibiotics with meropenem as she HAS MULTIPLE DRUG ALLERGIES. We will determine the timing for surgery and appreciate Dr. Mendez's input into this case as well as Dr. Gamboa's as well. We will discuss further with the surgeons as far as the timing of the surgery in hopes to prevent bowel resection and the repair of recurrent incarcerated hernia. The patient is an ASA class II anesthesia risk and we may proceed with the surgery once her INR is stable. 2. Paroxysmal AFib/sick sinus syndrome with pacemaker/hypertension. The patient is on telemetry, is currently in sinus rhythm and no evidence of any congestive heart failure. Echocardiogram has been ordered by Dr. Long. We will consult on the patient and appreciate his input. We will continue with patient diltiazem 15 mg IV, IV digoxin and monitoring with p.r.n. hydralazine for blood pressure. We will continue telemetry monitoring. 3. Asthma. We will give the patient breathing treatments, supplemental oxygen as needed and Asmanex. 4. GERD. We will give the patient pantoprazole IV. 5. Possible urinary tract infection. We will await urine culture results and continue with meropenem. Dictated By: NADEEM HAMILTON MD SR/NTS Conf#: [id number] DID#: [id number] MTDD
[2018-09-08] MEDS ORDERED: LORAZEPAM 2 MG INJ IV ONE (18:30)
[2018-09-08] MEDS: MOMETASONE 0.24 GM INHALER INH SCH (21:47)
[2018-09-08] MEDS: hydrALAzine 20 MG INJ IV PRN (21:54)
[2018-09-09] VITALS (12 sets, daily range): BP systolic 153–178; BP diastolic 56–84; PULSE 68–97; RESP 18–20
[2018-09-09] MEDS: ONDANSETRON 4 MG INJ IV PRN (03:53)
[2018-09-09] MEDS: POTASSIUM CHLORIDE 10 MEQ in SOD CHLORIDE 0.9% 1,000 ML IV SCH ×3 (03:58→23:45)
[2018-09-09] MEDS ORDERED: LORAZEPAM 2 MG INJ IV PRN (04:00)
[2018-09-09] MEDS: MEROPENEM 1 GM/50ML(PMX) 50 ML IVPB SCH ×3 (05:21→21:30)
[2018-09-09] MEDS: DILTIAZEM 25 MG INJ IV SCH ×4 (05:21→23:35)
[2018-09-09] MEDS: MOMETASONE 0.24 GM INHALER INH SCH ×2 (08:27→20:00)
[2018-09-09] MEDS: CYCLOSPORINE 0.05% OPH DROPERETTE BOTH EYES SCH ×2 (08:29→21:00)
[2018-09-09] MEDS: FAMOTIDINE 20 MG INJ IV SCH ×2 (08:30→21:31)
--- NOTE | 2018-09-09 08:44 | PN ---
DATE: 09/09/2018 SUBJECTIVE: The patient is still with abdominal pain, otherwise without complaint. OBJECTIVE: VITAL SIGNS: Temperature 98.0, but it was 99 at 4:00 a.m., pulse is 68 and regular, respirations 20, blood pressure 158/65, oxygen saturation 95% on room air. GENERAL: Well-developed, well-nourished female, in no acute distress, lying in bed, mild sedation. CHEST: Clear to auscultation bilaterally but increased expiratory phase. HEART: Regular rate and rhythm. ABDOMEN: Positive bowel sounds, soft, nondistended. No rebound tenderness. There is mild to modera te tenderness in the left lower quadrant and mild in the right lower quadrant. No mass is present. EXTREMITIES: No cyanosis, clubbing or edema. NEUROLOGIC: The patient is sedated but arousable, otherwise nonfocal. LABORATORY DATA: White blood cell count 11.2, hemoglobin of 12.3, hematocrit 38.3, platelets of 178. INR is 1.14, PTT of 29.1, PT of 14.7. Sodium 139, potassium 3.7, chloride 108, bicarbonate 25, BUN of 8, creatinine 0.43, glucose 94, magnesium 1.9, AST 15, ALT of 22. Urine culture shows greater th an 100,000 gram-negative rods. ASSESSMENT AND PLAN: 1. Small-bowel obstruction secondary to incarcerated left inguinal hernia. The patient pulled out N G tube early this morning, but her belly remained soft, nondistended with mild pain. We will hold of f on reinserting it at this time. We will continue with n.p.o. and await reevaluation by general wong pena to determine timing of the surgery. In the meantime, we will continue with antibiotics and IV f luids and p.r.n. pain medications and p.r.n. nausea medications. 2. Paroxysmal atrial fibrillation/hypertension, stable with medications. We will continue with curr ent medications and hold off on any anticoagulation due to upcoming surgery. 3. Urinary tract infection. We will continue with Meropenem IV and await culture results and adjust medications as needed. 4. Asthma, stable. Continue with medications. 5. Anxiety. We will continue to use p.r.n. Ativan and the patient with mild confusion today seconda ry to medications, age and we will continue with the soft limb restraints at this time for patient's protection as she is pulling outlines. Dictated By: NADEEM HAMILTON MD SR/NTS Conf#: [id number] DID#: [id number] CC: NADEEM HAMILTON MD; JORDAN GRANT MD;*EndCC*
--- NOTE | 2018-09-09 11:50 | CONS ---
Assessment/Plan Assessment/Plan Hospital Course (Demo Recall) 1. Left inguinal hernia with incarcerated small bowel however has reduced. Small bowel obstruction secondary to hernia. -Open repair when medically stable and optimized (possibly tomorrow) 2. Right inguinal hernia reducible however symptomatic. -Recommend staged operation to repair this at a later time 3. Iatrogenic coagulopathy secondary to Coumadin use improving after reversal 4. Paroxysmal A. fib, sick sinus syndrome, hypertension -Electrolyte optimization -Cardiac optimization -Nutrition and medication optimization 5. UTI on antibiotics 6. Leukocytosis possibly secondary to recent steroids versus #1 however improving -Close monitoring Thank you very much for consulting me in this patient's care, Consultation Date/Type/Reason Admit Date/Time September 07, 2018 at 18:28 Date of Consultation: September 09, 2018 Type of Consult Minimally Invasive Surgery Reason for Consultation Inguinal hernias Requesting Provider: NADEEM HAMILTON MD- Date/Time of Note DATE: 09/09/18 TIME: 11:49 Hx of Present Illness Bonnie Martins is an 88-year-old female with multiple comorbidities who is well-known to me from her previous surgeries who presented to the emergency room with abdominal pain, nausea, vomiting, distension, and weakness. She was found to have partial small-bowel obstruction and was still passing gas at that time. Abdominal CT scan with SBO secondary to incarcerated left inguinal hernia and she had a right inguinal hernia containing nonobstructed small bowel. The patient was placed on IV fluids, was made n.p.o. but she refused NG tube placement multiple times despite our discussions with the patient. The patient had no further nausea and vomiting, but continued to have some abdominal pain and distention but did improve clinically since her presentation to the emergency room. No n/v. No f/c. Leukocytosis from yesterday improving. Dr. Mendez saw patient yesterday but decided to not proceed with surgery since she needed optimization. I am called today for consult to re-evaluate for surgery. 12 point review of system is negative unless otherwise addressed in chart. Patient more agitated overnight and had to be restrained. Past Medical History Paroxysmal AFib, Moderate persistent asthma, Diverticulosis with history of perforation and subsequent bowel surgery Sick sinus syndrome, status post permanent pacemaker placement Gastroesophageal reflux disease Hiatal hernia Osteoporosis Lumbar and cervical spondylosis Allergic rhinitis Venous insufficiency sicca syndrome. Bilateral inguinal hernias Small bowel obstruction secondary to hernia Leukocytosis secondary to steroids UTI Hypertension Home Meds Reported Medications Ergocalciferol (Vitamin D2) (Ergocalciferol) 8,000 Unit/1 Ml Drops, 2000 UNIT PO DAILY, BOTTLE 09/07/18 Potassium Chloride* (Potassium Chloride*) 20 Meq/15 Ml Liquid, 2.5 ML PO DAILY, ML 09/07/18 Azelastine/Fluticasone (DYMISTA NASAL SPRAY) 23 Gm [place].pump, 1 SPRAY NASAL BID, #1 BOTTLE TO EACH NOSTRIL 09/07/18 Diltiazem Hcl* (Cardizem*) 30 Mg Tablet, 15 TAB ORAL TID 09/07/18 Loratadine* (Claritin*) 10 Mg Tablet, 10 MG PO QAM, TAB 09/07/18 Warfarin Sod (Coumadin) 5 Mg Tablet, 5 MG PO DAILY, TAB 02/05/15 Levalbuterol* (Xopenex* HFA) 15 Gm Inha, 1 PUFFS INH BID, EA 04/30/14 Montelukast Sodium* (Singulair*) 10 Mg Tablet, 10 MG PO HS, TAB 04/30/14 Cyclosporine* (Restasis* Oph) 32 Ea Droperette, 1 DROP BOTH EYES Q12, EA 04/30/14 Mometasone Furoate* (Asmanex*) 110 Mcg Aer.pow.ba, IH BID 09/05/12 Discontinued Reported Medications Magnesium Oxide* (Mag-Oxide*) 400 Mg Tablet, 400 MG PO DAILY, TAB 04/07/16 Cholecalciferol* (Vitamin D3*) 1,000 Unit Tablet, 2000 UNIT PO DAILY, TAB 04/07/16 Cholecalciferol (Vitamin D3) 2,000 Unit Tablet, PO BID 09/05/12 Cyclosporine* (Restasis* Oph) 32 Ea Droperette, BOTH EYES BID 09/05/12 Polyethylene Glycol* (Miralax*) 17 Gm Powd.pack, PO DAILY 09/05/12 Loratadine (Alavert) 10 Mg Tablet, PO BID 09/05/12 [dilatizem] 15 MG No Conflict Check, PO QID 09/05/12 Discontinued Scripts [place]-3 Fatty Acids/Fish Oil (Fish Oil 1,000 mg Capsule) 1 Each Capsule, 1 EACH PO DAILY for 30 Days, #30 CAP Prov:NADEEM HAMILTON MD- 08/26/16 Medications Current Medications Digoxin (Digoxin) 125 mcg DAILY@13 IV Last administered on 09/08/18 12:38; Admin Dose 125 MCG; Start 09/08/18 at 13:00 Cyclosporine (Restasis) 1 drop BID BOTH EYES Last administered on 09/09/18 08:29; Admin Dose 1 DROP; Start 09/07/18 at 21:00 Ondansetron HCl (Zofran Inj) 4 mg Q6H PRN IV NAUSEA AND/OR VOMITING Last administered on 09/09/18 03:53; Admin Dose 4 MG; Start 09/07/18 at 21:30 Morphine Sulfate (morphine) 2 mg Q4H PRN IV PAIN LEVEL 6-10 Last administered on 09/08/18 23:16; Admin Dose 2 MG; Start 09/07/18 at 21:30 Enoxaparin Sodium (Lovenox) 30 mg DAILY SC ; Start 09/08/18 at 09:00; Status Hold Hydralazine HCl (Apresoline) 5 mg Q6H PRN IV SBP>180 OR DBP>100 Last administered on 09/08/18 21:54; Admin Dose 5 MG; Start 09/07/18 at 21:30 Potassium Chloride 10 meq/ Sodium Chloride 1,005 ml @ 100 mls/hr Q10H3M IV Last administered on 09/09/18 03:58; Admin Dose 100 MLS/HR; Start 09/07/18 at 21:30 Famotidine (Pepcid Iv) 20 mg Q12 IV Last administered on 09/09/18 08:30; Admin Dose 20 MG; Start 09/08/18 at 09:00 Meropenem/Sodium Chloride 50 ml @ 100 mls/hr Q8 IVPB Last administered on 09/09 05:21; Admin Dose 100 MLS/HR; Start 09/07/18 at 22:00 Mometasone Furoate (Asmanex) 1 puff BID RESP THERAPY INH Last administered on 09/09/18 08:27; Admin Dose 1 PUFF; Start 09/08/18 at 20:00 Levalbuterol (Xopenex Neb) 0.63 mg Q6H RESP THERAPY PRN HHN sob or wheezing Last administered on 09/08/18 16:42; Admin Dose 0.63 MG; Start 09/08/18 at 12:30 Diltiazem HCl (Cardizem Iv) 5 mg Q6 IV Last administered on 09/09/18at 05:21; Admin Dose 5 MG; Start 09/08/18 at 18:00 Lorazepam (Ativan) 0.25 mg Q8H PRN IV Anxiety Last administered on 09/09/18at 03:54; Admin Dose 0.25 MG; Start 09/09/18 at 04:00 Allergies: Coded Allergies: Penicillins (Verified Allergy, Severe, 09/07/18) Sulfa (Sulfonamide Antibiotics) (Verified Allergy, Severe, 09/07/18) Trimethobenzamide HCl (Verified Allergy, Severe, 09/07/18) swelling mouth throat aspirin (Verified Allergy, Severe, 09/07/18) anaphylaxis cefuroxime (Verified Allergy, Severe, 09/07/18) codeine (Verified Allergy, Severe, 09/07/18) anaphylaxis hydromorphone (Verified Allergy, Severe, PASS OUT, 08/25/16) hydromorphone HCl (Verified Allergy, Severe, 08/25/16) swelling throat iodine (Verified Allergy, Severe, 08/25/16) anaphylaxis latex (Verified Allergy, Severe, 08/25/16) anaphylaxis levofloxacin (Verified Allergy, Severe, 09/07/18) severe swelling throat telithromycin (Verified Allergy, Severe, ANAPHYLACTIC SHOCK, 09/07/18) trimethobenzamide (Verified Allergy, Severe, ANAPHYLACTIC SHOCK, 08/25/16) fluticasone (Verified Allergy, Mild, TACHYCARDIA (OK TO GIVE SIMILAR MEDS PER MD), 08/25/16) lactose (Verified Allergy, Mild, 08/25/16) salmeterol (Unverified Allergy, Mild, TACHYCARDIA (OK TO GIVE SIMILAR MEDS PER MD), 08/25/16) nut - unspecified (Unverified Allergy, Unknown, 09/07/18) Uncoded Allergies: SEAFOOD (Allergy, Severe, ANAPHYLAXIS, 01/12/10) NUTS (Allergy, Unknown, ANAPHYLAXIS, 09/07/18) Past Surgical History Roman fundoplication Bilateral cataract extractions Permanent pacemaker placement for sick sinus syndrome Ventral hernia repair x2 Retinal detachment repair x2 and Radioablation for cardiac arrhythmia Partial large bowel resection for diverticulitis with perforation. Family History Significant Family History: no pertinent family hx Social History No current etoh, drugs, or tobacco Smoking Status: Never smoker Exam/Review of Systems Exam Vitals Vital Signs Date Temp Pulse Resp B/P (MAP) Pulse Ox O2 O2 Flow FiO2 Time Delivery Rate 09/09/18 98.2 81 18 178/73 95 Room Air 11:38 (108) 09/09/18 2.0 04:56 09/08/18 28 01:12 Intake and Output 09/08/18 09/08/18 09/09/18 1515:00 23:00 07:00 IntakeIntake Total 50 ml 1000 ml BalanceBalance 50 ml 1000 ml Constitutional: No oriented, No distress Psych: nl mood/affect (Somewhat confused on morphine), confusion Head: normocephalic, atraumatic Eyes: nl conjunctiva, EOMI, PERRL; No icteric ENMT: nl external ears & nose; No nl lips & teeth (Dry lips) Neck: supple, non-tender; No jvd Respiratory: normal air movement; No congested cough, No labored breathing Cardiovascular: regular rate and rhythm; No edema Gastrointestinal: soft, non-tender, distended (Family), other (No palpable her cori); No rebound or guarding Musculoskeletal: nl extremities to inspection; No joint tenderness Extremities: normal pulses; No calf tenderness, No edema Neurological: nl speech, nl strength Skin: nl turgor; No rash or lesions, No diaphoresis Lymph: nl lymph nodes Results Result Diagram: 09/09/18 0453 09/09/18 0453 Results 24hrs Laboratory Tests Test 09/08/18 16:35 09/09/18 04:53 Prothrombin Time 19.5 #H 14.7 # Prothrombin Time Ratio 1.5 1.1 INR International Normalized Ratio 1.64 1.14 Activated Partial Thromboplast Time 34.1 29.1 White Blood Count 11.2 #H Red Blood Count 4.29 Hemoglobin 12.3 Hematocrit 38.3 Mean Corpuscular Volume 89.3 Mean Corpuscular Hemoglobin 28.7 L Mean Corpuscular Hemoglobin Concent 32.1 Red Cell Distribution Width 14.5 Platelet Count 178 # Mean Platelet Volume 10.6 H Immature Granulocytes % 0.500 H Neutrophils % 75.2 Lymphocytes % 13.2 L Monocytes % 10.3 Eosinophils % 0.2 Basophils % 0.6 Nucleated Red Blood Cells % 0.0 Immature Granulocytes # 0.060 H Neutrophils # 8.5 H Lymphocytes # 1.5 Monocytes # 1.2 H Eosinophils # 0.0 Basophils # 0.1 Nucleated Red Blood Cells # 0.0 Sodium Level 139 Potassium Level 3.7 Chloride Level 108 Carbon Dioxide Level 25 Anion Gap 6 Blood Urea Nitrogen 8 Creatinine 0.43 L Est Glomerular Filtrat Rate mL/min Glucose Level 94 Calcium Level 9.2 Magnesium Level 1.9 Total Bilirubin 0.7 Direct Bilirubin 0.00 Indirect Bilirubin 0.7 Aspartate Amino Transf (AST/SGOT) 15 Alanine Aminotransferase (ALT/SGPT) 22 Alkaline Phosphatase 76 Total Protein 5.8 L Albumin 3.2 L Globulin 2.60 Albumin/Globulin Ratio 1.23 Medications Medication Current Medications Digoxin (Digoxin) 125 mcg DAILY@13 IV Last administered on 09/08/18 12:38; Admin Dose 125 MCG; Start 09/08/18 at 13:00 Cyclosporine (Restasis) 1 drop BID BOTH EYES Last administered on 09/09/18 08:29; Admin Dose 1 DROP; Start 09/07/18 at 21:00 Ondansetron HCl (Zofran Inj) 4 mg Q6H PRN IV NAUSEA AND/OR VOMITING Last administered on 09/09/18 03:53; Admin Dose 4 MG; Start 09/07/18 at 21:30 Morphine Sulfate (morphine) 2 mg Q4H PRN IV PAIN LEVEL 6-10 Last administered on 09/08/18 23:16; Admin Dose 2 MG; Start 09/07/18 at 21:30 Enoxaparin Sodium (Lovenox) 30 mg DAILY SC ; Start 09/08/18 at 09:00; Status Hold Hydralazine HCl (Apresoline) 5 mg Q6H PRN IV SBP>180 OR DBP>100 Last administered on 09/08/18 21:54; Admin Dose 5 MG; Start 09/07/18 at 21:30 Potassium Chloride 10 meq/ Sodium Chloride 1,005 ml @ 100 mls/hr Q10H3M IV Last administered on 09/09/18 03:58; Admin Dose 100 MLS/HR; Start 09/07/18 at 21:30 Famotidine (Pepcid Iv) 20 mg Q12 IV Last administered on 09/09/18 08:30; Admin Dose 20 MG; Start 09/08/18 at 09:00 Meropenem/Sodium Chloride 50 ml @ 100 mls/hr Q8 IVPB Last administered on 09/09/18 05:21; Admin Dose 100 MLS/HR; Start 09/07/18 at 22:00 Mometasone Furoate (Asmanex) 1 puff BID RESP THERAPY INH Last administered on 09/09/18 08:27; Admin Dose 1 PUFF; Start 09/08/18 at 20:00 Levalbuterol (Xopenex Neb) 0.63 mg Q6H RESP THERAPY PRN HHN sob or wheezing Last administered on 09/08/18 16:42; Admin Dose 0.63 MG; Start 09/08/18 at 12:30 Diltiazem HCl (Cardizem Iv) 5 mg Q6 IV Last administered on 09/09/18 05:21; Admin Dose 5 MG; Start 09/08/18 at 18:00 Lorazepam (Ativan) 0.25 mg Q8H PRN IV Anxiety Last administered on 09/09/18at 03:54; Admin Dose 0.25 MG; Start 09/09/18 at 04:00 KARRIE WEST MD September 09, 2018 11:49
--- NOTE | 2018-09-09 11:59 | CONS ---
Assessment/Plan Assessment/Plan Hospital Course (Demo Recall) Preoperative cardiac risk stratification Small bowel obstruction with incarcerated hernia as per surgery Paroxysmal atrial fibrillation, currently sinus rhythm Preserved left ventricular ejection fraction History of pacemaker Coagulopathy, secondary to Coumadin Patient with increased agitation requiring restraints and sedation. Blood pressure and heart rates have been on the higher side I will increase the dose of IV Cardizem with 1 dose to be given now I have adjusted the hydralazine as needed order Please refer to my initial consult note 09/08/2018 discussing preoperative cardiac risk stratification I will order potassium and magnesium supplementation Consultation Date/Type/Reason Admit Date/Time September 07, 2018 at 18:28 Initial Consult Date 09/09/18 Type of Consult Cardiology Requesting Provider: JUAN SCHERER MD Date/Time of Note DATE: 09/09/18 TIME: 11:57 24 HR Interval Summary Free Text/Dictation Patient with more agitation overnight and had to be in restraints. Blood pressure and heart rate has been higher Exam/Review of Systems Vital Signs Vitals Vital Signs Date Temp Pulse Resp B/P (MAP) Pulse Ox O2 O2 Flow FiO2 Time Delivery Rate 09/09/18 98.2 81 18 178/73 95 Room Air 11:38 (108) 09/09/18 2.0 04:56 09/08/18 28 01:12 Intake and Output 09/08/18 09/08/18 09/09/18 1515:00 23:00 07:00 IntakeIntake Total 50 ml 1000 ml BalanceBalance 50 ml 1000 ml Exam Exam Sleeping, it appears patient was given Ativan, in restraints, nurse at bedside Head: normocephalic Respiratory: other (Coarse breath sounds bilaterally, no wheezing) Cardiovascular: regular rate and rhythm (S1-S2 heard) Gastrointestinal: soft, bowel sounds Extremities: other (No significant edema) Labs Result Diagram: 09/09/18 0453 09/09/18 0453 Results 24hrs Laboratory Tests Test 09/08/18 16:35 09/09/18 04:53 Prothrombin Time 19.5 #H 14.7 # Prothrombin Time Ratio 1.5 1.1 INR International Normalized Ratio 1.64 1.14 Activated Partial Thromboplast Time 34.1 29.1 White Blood Count 11.2 #H Red Blood Count 4.29 Hemoglobin 12.3 Hematocrit 38.3 Mean Corpuscular Volume 89.3 Mean Corpuscular Hemoglobin 28.7 L Mean Corpuscular Hemoglobin Concent 32.1 Red Cell Distribution Width 14.5 Platelet Count 178 # Mean Platelet Volume 10.6 H Immature Granulocytes % 0.500 H Neutrophils % 75.2 Lymphocytes % 13.2 L Monocytes % 10.3 Eosinophils % 0.2 Basophils % 0.6 Nucleated Red Blood Cells % 0.0 Immature Granulocytes # 0.060 H Neutrophils # 8.5 H Lymphocytes # 1.5 Monocytes # 1.2 H Eosinophils # 0.0 Basophils # 0.1 Nucleated Red Blood Cells # 0.0 Sodium Level 139 Potassium Level 3.7 Chloride Level 108 Carbon Dioxide Level 25 Anion Gap 6 Blood Urea Nitrogen 8 Creatinine 0.43 L Est Glomerular Filtrat Rate mL/min Glucose Level 94 Calcium Level 9.2 Magnesium Level 1.9 Total Bilirubin 0.7 Direct Bilirubin 0.00 Indirect Bilirubin 0.7 Aspartate Amino Transf (AST/SGOT) 15 Alanine Aminotransferase (ALT/SGPT) 22 Alkaline Phosphatase 76 Total Protein 5.8 L Albumin 3.2 L Globulin 2.60 Albumin/Globulin Ratio 1.23 Medications Medications Current Medications Digoxin (Digoxin) 125 mcg DAILY@13 IV Last administered on 09/08/18 12:38; Admin Dose 125 MCG; Start 09/08/18 at 13:00 Cyclosporine (Restasis) 1 drop BID BOTH EYES Last administered on 09/09/18 08:29; Admin Dose 1 DROP; Start 09/07/18 at 21:00 Ondansetron HCl (Zofran Inj) 4 mg Q6H PRN IV NAUSEA AND/OR VOMITING Last administered on 09/09/18 03:53; Admin Dose 4 MG; Start 09/07/18 at 21:30 Morphine Sulfate (morphine) 2 mg Q4H PRN IV PAIN LEVEL 6-10 Last administered on 09/08/18 23:16; Admin Dose 2 MG; Start 09/07/18 at 21:30 Enoxaparin Sodium (Lovenox) 30 mg DAILY SC ; Start 09/08/18 at 09:00; Status Hold Hydralazine HCl (Apresoline) 5 mg Q6H PRN IV SBP>180 OR DBP>100 Last administered on 09/08/18 21:54; Admin Dose 5 MG; Start 09/07/18 at 21:30 Potassium Chloride 10 meq/ Sodium Chloride 1,005 ml @ 100 mls/hr Q10H3M IV Last administered on 09/09/18 03:58; Admin Dose 100 MLS/HR; Start 09/07/18 at 21:30 Famotidine (Pepcid Iv) 20 mg Q12 IV Last administered on 09/09/18 08:30; Admin Dose 20 MG; Start 09/08/18 at 09:00 Meropenem/Sodium Chloride 50 ml @ 100 mls/hr Q8 IVPB Last administered on 09/09/18 05:21; Admin Dose 100 MLS/HR; Start 09/07/18 at 22:00 Mometasone Furoate (Asmanex) 1 puff BID RESP THERAPY INH Last administered on 09/09/18 08:27; Admin Dose 1 PUFF; Start 09/08/18 at 20:00 Levalbuterol (Xopenex Neb) 0.63 mg Q6H RESP THERAPY PRN HHN sob or wheezing Last administered on 09/08/18 16:42; Admin Dose 0.63 MG; Start 09/08/18 at 12:30 Diltiazem HCl (Cardizem Iv) 5 mg Q6 IV Last administered on 09/09/18 11:44; Admin Dose 5 MG; Start 09/08/18 at 18:00 Lorazepam (Ativan) 0.25 mg Q8H PRN IV Anxiety Last administered on 09/09/18 03:54; Admin Dose 0.25 MG; Start 09/09/18 at 04:00 Jones Long DO September 09, 2018 11:59
[2018-09-09] MEDS ORDERED: POTASSIUM CHLORIDE 100 ML IVPB ONE (12:00)
[2018-09-09] MEDS ORDERED: MAGNESIUM SULFATE 2 GM/50 ML 50 ML IVPB ONE (12:00)
[2018-09-09] MEDS ORDERED: DILTIAZEM 25 MG INJ IV ONE (12:00)
[2018-09-09] MEDS ORDERED: DILTIAZEM 25 MG INJ IV SCH (12:00)
[2018-09-09] MEDS: DIGOXIN 500 MCG INJ IV SCH (12:53)
[2018-09-09] MEDS: morphine 2 MG INJ IV PRN ×2 (13:07→21:32)
--- NOTE | 2018-09-09 18:07 | PREAC ---
Date/Time of Note Date/Time of Note DATE: 09/09/18 TIME: 18:05 Anesthesia Eval and Record Evaluation Time Pre-Procedure Interview DATE: 09/09/18 TIME: 18:05 Age 88 Sex female NPO: 8 hrs Preoperative diagnosis Small bowel obstruction secondary to hernia. Planned procedure OPEN LEFT INGUINAL HERNIA REPAIR Past Medical History Past Medical History: Includes Cardio: Arrythmia (AFib), PPM/AICD (Sick sinus syndrome) Pulm: Asthma Musculoskeletal: Other (lumbar and cervical spondylosis) Surgery & Anesthesia Issues No known issue Meds Anticoagulation: No Beta Tatiana within 24 hr: No Reason Beta Tatiana not given: Pt. not on B-Tatiana Reported Medications Ergocalciferol (Vitamin D2) (Ergocalciferol) 8,000 Unit/1 Ml Drops, 2000 UNIT PO DAILY, BOTTLE 09/07/18 Potassium Chloride* (Potassium Chloride*) 20 Meq/15 Ml Liquid, 2.5 ML PO DAILY, ML 09/07/18 Azelastine/Fluticasone (DYMISTA NASAL SPRAY) 23 Gm [place].pump, 1 SPRAY NASAL BID, #1 BOTTLE TO EACH NOSTRIL 09/07/18 Diltiazem Hcl* (Cardizem*) 30 Mg Tablet, 15 TAB ORAL TID 09/07/18 Loratadine* (Claritin*) 10 Mg Tablet, 10 MG PO QAM, TAB 09/07/18 Warfarin Sod (Coumadin) 5 Mg Tablet, 5 MG PO DAILY, TAB 02/05/15 Levalbuterol* (Xopenex* HFA) 15 Gm Inha, 1 PUFFS INH BID, EA 04/30/14 Montelukast Sodium* (Singulair*) 10 Mg Tablet, 10 MG PO HS, TAB 04/30/14 Cyclosporine* (Restasis* Oph) 32 Ea Drope[place], 1 DROP BOTH EYES Q12, EA 04/30/14 Mometasone Furoate* (Asmanex*) 110 Mcg [place].pow.ba, IH BID 09/05/12 Discontinued Reported Medications Magnesium Oxide* (Mag-Oxide*) 400 Mg Tablet, 400 MG PO DAILY, TAB 04/07/16 Cholecalciferol* (Vitamin D3*) 1,000 Unit Tablet, 2000 UNIT PO DAILY, TAB 04/07/16 Cholecalciferol (Vitamin D3) 2,000 Unit Tablet, PO BID 09/05/12 Cyclosporine* (Restasis* Oph) 32 Ea Droperette, BOTH EYES BID 09/05/12 Polyethylene Glycol* (Miralax*) 17 Gm Powd.pack, PO DAILY 09/05/12 Loratadine (Alavert) 10 Mg Tablet, PO BID 09/05/12 [dilatizem] 15 MG No Conflict Check, PO QID 09/05/12 Discontinued Scripts [place]-3 Fatty Acids/Fish Oil (Fish Oil 1,000 mg Capsule) 1 Each Capsule, 1 EACH PO DAILY for 30 Days, #30 CAP Prov:NADEEM HAMILTON MD- 08/26/16 Current Medications Digoxin (Digoxin) 125 mcg DAILY@13 IV Last administered on 09/09/18 12:53; Admin Dose 125 MCG; Start 09/08/18 at 13:00 Cyclosporine (Restasis) 1 drop BID BOTH EYES Last administered on 09/09/18 08:29; Admin Dose 1 DROP; Start 09/07/18 at 21:00 Ondansetron HCl (Zofran Inj) 4 mg Q6H PRN IV NAUSEA AND/OR VOMITING Last administered on 09/09/18 03:53; Admin Dose 4 MG; Start 09/07/18 at 21:30 Morphine Sulfate (morphine) 2 mg Q4H PRN IV PAIN LEVEL 6-10 Last administered on 09/09/18 13:07; Admin Dose 2 MG; Start 09/07/18 at 21:30 Enoxaparin Sodium (Lovenox) 30 mg DAILY SC ; Start 09/08/18 at 09:00; Status Hold Hydralazine HCl (Apresoline) 5 mg Q6H PRN IV SBP>160 OR DBP>100 Last administered on 09/08/18 21:54; Admin Dose 5 MG; Start 09/07/18 at 21:30 Potassium Chloride 10 meq/ Sodium Chloride 1,005 ml @ 100 mls/hr Q10H3M IV Last administered on 09/09/18 03:58; Admin Dose 100 MLS/HR; Start 09/07/18 at 21:30 Famotidine (Pepcid Iv) 20 mg Q12 IV Last administered on 09/09/18 08:30; Admin Dose 20 MG; Start 09/08/18 at 09:00 Meropenem/Sodium Chloride 50 ml @ 100 mls/hr Q8 IVPB Last administered on 09/09/18 13:09; Admin Dose 100 MLS/HR; Start 09/07/18 at 22:00 Mometasone Furoate (Asmanex) 1 puff BID RESP THERAPY INH Last administered on 09/09/18 08:27; Admin Dose 1 PUFF; Start 09/08/18 at 20:00 Levalbuterol (Xopenex Neb) 0.63 mg Q6H RESP THERAPY PRN HHN sob or wheezing Last administered on 09/08/18 16:42; Admin Dose 0.63 MG; Start 09/08/18 at 12:30 Lorazepam (Ativan) 0.25 mg Q8H PRN IV Anxiety Last administered on 09/09/18 03:54; Admin Dose 0.25 MG; Start 09/09/18 at 04:00 Diltiazem HCl (Cardizem Iv) 10 mg Q6 IV Last administered on 09/09/18 17:47; Admin Dose 10 MG; Start 09/09/18 at 18:00 Meds reviewed: Yes Allergies Coded Allergies: Penicillins (Verified Allergy, Severe, 09/07/18) Sulfa (Sulfonamide Antibiotics) (Verified Allergy, Severe, 09/07/18) Trimethobenzamide HCl (Verified Allergy, Severe, 09/07/18) swelling mouth throat aspirin (Verified Allergy, Severe, 09/07/18) anaphylaxis cefuroxime (Verified Allergy, Severe, 09/07/18) codeine (Verified Allergy, Severe, 09/07/18) anaphylaxis hydromorphone (Verified Allergy, Severe, PASS OUT, 08/25/16) hydromorphone HCl (Verified Allergy, Severe, 08/25/16) swelling throat iodine (Verified Allergy, Severe, 08/25/16) anaphylaxis latex (Verified Allergy, Severe, 08/25/16) anaphylaxis levofloxacin (Verified Allergy, Severe, 09/07/18) severe swelling throat telithromycin (Verified Allergy, Severe, ANAPHYLACTIC SHOCK, 09/07/18) trimethobenzamide (Verified Allergy, Severe, ANAPHYLACTIC SHOCK, 08/25/16) fluticasone (Verified Allergy, Mild, TACHYCARDIA (OK TO GIVE SIMILAR MEDS PER MD), 08/25/16) lactose (Verified Allergy, Mild, 08/25/16) salmeterol (Unverified Allergy, Mild, TACHYCARDIA (OK TO GIVE SIMILAR MEDS PER MD), 08/25/16) nut - unspecified (Unverified Allergy, Unknown, 09/07/18) Uncoded Allergies: SEAFOOD (Allergy, Severe, ANAPHYLAXIS, 01/12/10) NUTS (Allergy, Unknown, ANAPHYLAXIS, 09/07/18) Allergies Reviewed: Yes Labs/Studies Labs Reviewed: Reviewed by anesthesiologist Result Diagram: 09/09/18 0453 09/09/18 0453 Laboratory Tests 09/09/18 04:53 test: N/A Studies: ECG (SR), CXR (No evidence for active cardiopulmonary disease.), 2D Echo (60% EF) Pre-procedure Exam Last vitals Vital Signs Date Temp Pulse Resp B/P (MAP) Pulse Ox O2 O2 Flow FiO2 Time Delivery Rate 09/09/18 80 16:01 09/09/18 98.3 20 178/84 96 Nasal 15:23 (115) Cannula 09/09/18 2.0 04:56 09/08/18 28 01:12 Airway: Adequate mouth opening Mallampati: Mallampati II Teeth: Normal Lung: Normal Heart: Normal ASA Physical Status ASA physical status: 3 Emergency: None Planned Anesthetic General/MAC: ETT Pre-operative Attestations Prior to commencing anesthesia and surgery, the patient was re-evaluated, there was verification of: *The patient's identity *The results of appropriate recent lab work and preoperative vital signs *The above evaluation not changing prior to induction *Anesthetic plan, risk benefits, alternative and complications discussed with patient/family; questions answered; patient/family understands, accepts and wishes to proceed. RAUL CHA September 09, 2018 18:07
[2018-09-09] MEDS: hydrALAzine 20 MG INJ IV PRN (21:31)
[2018-09-10] VITALS (23 sets, daily range): BP systolic 136–172; BP diastolic 55–71; PULSE 75–95; RESP 15–23
[2018-09-10] MEDS: POTASSIUM CHLORIDE 10 MEQ in SOD CHLORIDE 0.9% 1,000 ML IV SCH ×2 (05:20→20:09)
[2018-09-10] MEDS: DILTIAZEM 25 MG INJ IV SCH ×3 (05:25→18:00)
[2018-09-10] MEDS: MEROPENEM 1 GM/50ML(PMX) 50 ML IVPB SCH ×3 (05:26→23:43)
[2018-09-10] MEDS ORDERED: DESFLURANE 15 MIN ONE (07:00)
--- NOTE | 2018-09-10 08:32 | PN ---
DATE: 09/10/2018 SUBJECTIVE: The patient denies pain, no nausea, no vomiting. The patient is anxious though. OBJECTIVE: VITAL SIGNS: Temperature 98.0, pulse 81 and regular, respirations 20, blood pressure 142/66, oxygen saturation 95% on room air. GENERAL: Well-developed, ill-appearing female in no acute distress, lying in bed. CHEST: Clear to auscultation bilaterally except for increased expiratory phase. HEART: Regular rate and rhythm. ABDOMEN: Soft, nondistended, positive bowel sounds. There is moderate left lower quadrant tendernes s to palpation as well as right lower quadrant tenderness, equivocal rebound, no mass is noted. NEUROLOGIC: The patient is alert and oriented x2. Tearful at times. LABORATORY DATA: Sodium 137, potassium 4.3, chloride 105, bicarbonate 24, BUN of 8, creatinine 0.39, blood sugar of 80, magnesium 2.3, calcium 9.2. INR is 1.03, PTT of 29.5. PT of 13.6, white blood c ell count 11,000, hemoglobin 13.4, hematocrit 41.1, platelets 184. ASSESSMENT AND PLAN: 1. Incarcerated left inguinal hernia/partial small-bowel obstruction. The patient's bowel obstructi on seems to be improved as per last night's KUB. The patient is to proceed with surgery in the left inguinal hernia repair today by Dr. West. We will continue current measures, antibiotics and anal gesics for now and continue with the patient n.p.o. 2. Paroxysmal atrial fibrillation/hypertension/sick sinus syndrome with pacemaker. The patient cont inues to need telemetry monitoring and we will continue with her routine medications and adjust as ne cessary. 3. Asthma, stable. Continue with medications. 4. Anxiety. Continue with p.r.n. medications. Dictated By: NADEEM HAMILTON MD SR/NTS Conf#: [id number] DID#: [id number] CC: KARRIE WEST MD; NADEEM HAMILTON MD;*EndCC*
[2018-09-10] MEDS: MOMETASONE 0.24 GM INHALER INH SCH ×2 (08:35→20:08)
[2018-09-10] MEDS: FAMOTIDINE 20 MG INJ IV SCH ×2 (08:37→20:08)
[2018-09-10] MEDS: CYCLOSPORINE 0.05% OPH DROPERETTE BOTH EYES SCH ×2 (08:37→20:08)
--- NOTE | 2018-09-10 10:47 | PN ---
Date/Time of Note Date/Time of Note DATE: 09/10/18 TIME: 10:46 Assessment/Plan Lines/Catheters IV Catheter Type (from [facility]): Peripheral IV Simons in Place (from [facility]): No Assessment/Plan Chief Complaint/Hosp Course 1. Left inguinal hernia with incarcerated small bowel however has reduced. Small bowel obstruction secondary to hernia > resolved on imaging and cli nically. -Open repair pending today, time permitting 2. Right inguinal hernia reducible however symptomatic. -Recommend staged operation to repair this at a later time 3. Iatrogenic coagulopathy secondary to Coumadin use improving after reversal 4. Paroxysmal A. fib, sick sinus syndrome, hypertension -Electrolyte optimization -Cardiac optimization -Nutrition and medication optimization 5. UTI on antibiotics 6. Leukocytosis possibly secondary to recent steroids versus #1 however improving -Close monitoring Thank you Subjective 24 Hr Interval Summary Min pain. No f/c. No n/v. No cp/sob. No cough. No sz. No bleeding. Bowel function. No dysuria. No visual or neuro changes. Exam/Review of Systems Vital Signs Vitals Vital Signs Date Temp Pulse Resp B/P (MAP) Pulse Ox O2 O2 Flow FiO2 Time Delivery Rate 09/10/18 95 16:01 09/10/18 97.6 22 145/66 96 Room Air 11:50 (92) 09/10/18 04:03 Intake and Output 09/09/18 09/09/18 09/10/18 1515:00 23:00 07:00 IntakeIntake Total 0 ml 1050 ml 1250 ml BalanceBalance 0 ml 1050 ml 1250 ml Exam Free Text/Dictation Constitutional: No oriented, No distress Psych: nl mood/affect (Somewhat confused on morphine), confusion Head: normocephalic, atraumatic Eyes: nl conjunctiva, EOMI, PERRL; No icteric ENMT: nl external ears & nose; No nl lips & teeth (Dry lips) Neck: supple, non-tender; No jvd Respiratory: normal air movement; No congested cough, No labored breathing Cardiovascular: regular rate and rhythm; No edema Gastrointestinal: soft, non-tender, distended (Family), other (No palpable hernia); No rebound or guarding Musculoskeletal: nl extremities to inspection; No joint tenderness Extremities: normal pulses; No calf tenderness, No edema Neurological: nl speech, nl strength Skin: nl turgor; No rash or lesions, No diaphoresis Lymph: nl lymph nodes Results Result Diagram: 09/10/18 0522 09/10/18 0522 KARRIE WEST MD September 10, 2018 10:47
[2018-09-10] MEDS: DIGOXIN 500 MCG INJ IV SCH (12:28)
--- NOTE | 2018-09-10 15:16 | CONS ---
Assessment/Plan Assessment/Plan Hospital Course (Demo Recall) Preoperative cardiac risk stratification Small bowel obstruction with incarcerated hernia as per surgery Paroxysmal atrial fibrillation, currently sinus rhythm Preserved left ventricular ejection fraction History of pacemaker Coagulopathy, secondary to Coumadin Heart rate trend overall remained stable on current dose of Cardizem. Would continue and titrate as needed Blood pressure trend overall stable Please refer to my initial consult note 09/08/2018 discussing preoperative cardiac risk stratification Consultation Date/Type/Reason Admit Date/Time September 07, 2018 at 18:28 Initial Consult Date 09/09/18 Type of Consult Cardiology Requesting Provider: NADEEM HAMILTON MD- Date/Time of Note DATE: 09/10/18 TIME: 15:14 24 HR Interval Summary Free Text/Dictation Denies shortness of breath, chest pain. Brief episode of palpitations lasting seconds this morning Exam/Review of Systems Vital Signs Vitals Vital Signs Date Temp Pulse Resp B/P (MAP) Pulse Ox O2 O2 Flow FiO2 Time Delivery Rate 09/10/18 84 12:01 09/10/18 97.6 22 145/66 96 Room Air 11:50 (92) 09/10/18 21 04:03 Intake and Output 09/09/18 09/09/18 09/10/18 1515:00 23:00 07:00 IntakeIntake Total 0 ml 1050 ml 1250 ml BalanceBalance 0 ml 1050 ml 1250 ml Exam Constitutional: alert, oriented (No apparent distress) Head: normocephalic Respiratory: clear to auscultation, normal air movement Cardiovascular: regular rate and rhythm (S1-S2 heard) Gastrointestinal: soft, bowel sounds Extremities: other (No significant edema) Labs Result Diagram: 09/10/1822 09/10/18 0522 Results 24hrs Laboratory Tests Test 09/10/18 05:22 White Blood Count 11.0 H Red Blood Count 4.68 Hemoglobin 13.4 Hematocrit 41.1 Mean Corpuscular Volume 87.8 Mean Corpuscular Hemoglobin 28.6 L Mean Corpuscular Hemoglobin Concent 32.6 Red Cell Distribution Width 14.3 Platelet Count 184 Mean Platelet Volume 10.3 Immature Granulocytes % 0.500 H Neutrophils % 72.2 Lymphocytes % 15.3 Monocytes % 9.8 Eosinophils % 1.7 Basophils % 0.5 Nucleated Red Blood Cells % 0.0 Immature Granulocytes # 0.060 H Neutrophils # 7.9 H Lymphocytes # 1.7 Monocytes # 1.1 H Eosinophils # 0.2 Basophils # 0.1 Nucleated Red Blood Cells # 0.0 Prothrombin Time 13.6 Prothrombin Time Ratio 1.1 INR International Normalized Ratio 1.03 Activated Partial Thromboplast Time 29.5 Sodium Level 137 Potassium Level 4.3 Chloride Level 105 Carbon Dioxide Level 24 Anion Gap 8 Blood Urea Nitrogen 8 Creatinine 0.39 L Est Glomerular Filtrat Rate mL/min Glucose Level 80 Calcium Level 9.2 Magnesium Level 2.3 Medications Medications Current Medications Digoxin (Digoxin) 125 mcg DAILY@13 IV Last administered on 09/10/18 12:28; Admin Dose 125 MCG; Start 09/08/18 at 13:00 Cyclosporine (Restasis) 1 drop BID BOTH EYES Last administered on 09/10/18 08:37; Admin Dose 1 DROP; Start 09/07/18 at 21:00 Ondansetron HCl (Zofran Inj) 4 mg Q6H PRN IV NAUSEA AND/OR VOMITING Last administered on 09/09/18 03:53; Admin Dose 4 MG; Start 09/07/18 at 21:30 Morphine Sulfate (morphine) 2 mg Q4H PRN IV PAIN LEVEL 6-10 Last administered on 09/09/18 21:32; Admin Dose 2 MG; Start 09/07/18 at 21:30 Enoxaparin Sodium (Lovenox) 30 mg DAILY SC ; Start 09/08/18 at 09:00; Status Hold Hydralazine HCl (Apresoline) 5 mg Q6H PRN IV SBP>160 OR DBP>100 Last administered on 09/09/18 21:31; Admin Dose 5 MG; Start 09/07/18 at 21:30 Potassium Chloride 10 meq/ Sodium Chloride 1,005 ml @ 100 mls/hr Q10H3M IV Last administered on 09/10/18 05:20; Admin Dose 100 MLS/HR; Start 09/07/18 at 21:30 Famotidine (Pepcid Iv) 20 mg Q12 IV Last administered on 09/10/18 08:37; Admin Dose 20 MG; Start 09/08/18 at 09:00 Meropenem/Sodium Chloride 50 ml @ 100 mls/hr Q8 IVPB Last administered on 09/10/18 13:07; Admin Dose 100 MLS/HR; Start 09/07/18 at 22:00 Mometasone Furoate (Asmanex) 1 puff BID RESP THERAPY INH Last administered on 09/10/18at 08:35; Admin Dose 1 PUFF; Start 09/08/18 at 20:00 Levalbuterol (Xopenex Neb) 0.63 mg Q6H RESP THERAPY PRN HHN sob or wheezing Last administered on 09/08/18at 16:42; Admin Dose 0.63 MG; Start 09/08/18 at 12:30 Lorazepam (Ativan) 0.25 mg Q8H PRN IV Anxiety Last administered on 09/09/18at 0 3:54; Admin Dose 0.25 MG; Start 09/09/18 at 04:00 Diltiazem HCl (Cardizem Iv) 10 mg Q6 IV Last administered on 09/10/18at 12:30; Admin Dose 10 MG; Start 09/09/18 at 18:00 Jones Long DO September 10, 2018 15:16
--- NOTE | 2018-09-10 16:13 | PREAC ---
Date/Time of Note Date/Time of Note DATE: 09/10/18 TIME: 16:12 Anesthesia Eval and Record Evaluation Time Pre-Procedure Interview DATE: 09/10/18 TIME: 16:12 Age 88 Sex female NPO: 8 hrs Preoperative diagnosis L incarcerated inguinal hernia Planned procedure L incarcerated hernia repair with mesh Past Medical History Past Medical History: Includes Cardio: HTN, Dyslipidemia, Arrythmia, PPM/AICD Musculoskeletal: Osteoarthritis GI: GERD Heme: Anemia Surgery & Anesthesia Issues No known issue Meds Anticoagulation: No Beta Tatiana within 24 hr: No Reason Beta Tatiana not given: Pt. not on B-Tatiana Reported Medications Ergocalciferol (Vitamin D2) (Ergocalciferol) 8,000 Unit/1 Ml Drops, 2000 UNIT PO DAILY, BOTTLE 09/07/18 Potassium Chloride* (Potassium Chloride*) 20 Meq/15 Ml Liquid, 2.5 ML PO DAILY, ML 09/07/18 Azelastine/Fluticasone (DYMISTA NASAL SPRAY) 23 Gm [place].pump, 1 SPRAY NASAL BID, #1 BOTTLE TO EACH NOSTRIL 09/07/18 Diltiazem Hcl* (Cardizem*) 30 Mg Tablet, 15 TAB ORAL TID 09/07/18 Loratadine* (Claritin*) 10 Mg Tablet, 10 MG PO QAM, TAB 09/07/18 Warfarin Sod (Coumadin) 5 Mg Tablet, 5 MG PO DAILY, TAB 02/05/15 Levalbuterol* (Xopenex* HFA) 15 Gm Inha, 1 PUFFS INH BID, EA 04/30/14 Montelukast Sodium* (Singulair*) 10 Mg Tablet, 10 MG PO HS, TAB 04/30/14 Cyclosporine* (Restasis* Oph) 32 Ea Droperette, 1 DROP BOTH EYES Q12, EA 04/30/14 Mometasone Furoate* (Asmanex*) 110 Mcg Aer.pow.ba, IH BID 09/05/12 Discontinued Reported Medications Magnesium Oxide* (Mag-Oxide*) 400 Mg Tablet, 400 MG PO DAILY, TAB 04/07/16 Cholecalciferol* (Vitamin D3*) 1,000 Unit Tablet, 2000 UNIT PO DAILY, TAB 04/07/16 Cholecalciferol (Vitamin D3) 2,000 Unit Tablet, PO BID 5/16/13 Cyclosporine* (Restasis* Oph) 32 Ea Droperette, BOTH EYES BID 09/05/12 Polyethylene Glycol* (Miralax*) 17 Gm Powd.pack, PO DAILY 09/05/12 Loratadine (Alavert) 10 Mg Tablet, PO BID 09/05/12 [dilatizem] 15 MG No Conflict Check, PO QID 09/05/12 Discontinued Scripts [place]-3 Fatty Acids/Fish Oil (Fish Oil 1,000 mg Capsule) 1 Each Capsule, 1 EACH PO DAILY for 30 Days, #30 CAP Prov:NADEEM HAMILTON MD- 08/26/16 Current Medications Digoxin (Digoxin) 125 mcg DAILY@13 IV Last administered on 09/10/18 12:28; Adm in Dose 125 MCG; Start 09/08/18 at 13:00 Cyclosporine (Restasis) 1 drop BID BOTH EYES Last administered on 09/10/18 08:37; Admin Dose 1 DROP; Start 09/07/18 at 21:00 Ondansetron HCl (Zofran Inj) 4 mg Q6H PRN IV NAUSEA AND/OR VOMITING Last administered on 09/09/18 03:53; Admin Dose 4 MG; Start 09/07/18 at 21:30 Morphine Sulfate (morphine) 2 mg Q4H PRN IV PAIN LEVEL 6-10 Last administered on 09/09/18 21:32; Admin Dose 2 MG; Start 09/07/18 at 21:30 Enoxaparin Sodium (Lovenox) 30 mg DAILY SC ; Start 09/08/18 at 09:00; Status Hold Hydralazine HCl (Apresoline) 5 mg Q6H PRN IV SBP>160 OR DBP>100 Last administered on 09/09/18 21:31; Admin Dose 5 MG; Start 09/07/18 at 21:30 Potassium Chloride 10 meq/ Sodium Chloride 1,005 ml @ 100 mls/hr Q10H3M IV Last administered on 09/10/18 05:20; Admin Dose 100 MLS/HR; Start 09/07/18 at 21:30 Famotidine (Pepcid Iv) 20 mg Q12 IV Last administered on 09/10/18 08:37; Admin Dose 20 MG; Start 09/08/18 at 09:00 Meropenem/Sodium Chloride 50 ml @ 100 mls/hr Q8 IVPB Last administered on 09/10/18 13:07; Admin Dose 100 MLS/HR; Start 09/07/18 at 22:00 Mometasone Furoate (Asmanex) 1 puff BID RESP THERAPY INH Last administered on 09/10/18 08:35; Admin Dose 1 PUFF; Start 09/08/18 at 20:00 Levalbuterol (Xopenex Neb) 0.63 mg Q6H RESP THERAPY PRN HHN sob or wheezing Last administered on 09/08/18 16:42; Admin Dose 0.63 MG; Start 09/08/18 at 12:30 Lorazepam (Ativan) 0.25 mg Q8H PRN IV Anxiety Last administered on 09/09/18 03:54; Admin Dose 0.25 MG; Start 09/09/18 at 04:00 Diltiazem HCl (Cardizem Iv) 10 mg Q6 IV Last administered on 09/10/18 12:30; Admin Dose 10 MG; Start 09/09/18 at 18:00 Meds reviewed: Yes Allergies Coded Allergies: Penicillins (Verified Allergy, Severe, 09/07/18) Sulfa (Sulfonamide Antibiotics) (Verified Allergy, Severe, 09/07/18) Trimethobenzamide HCl (Verified Allergy, Severe, 09/07/18) swelling mouth throat aspirin (Verified Allergy, Severe, 09/07/18) anaphylaxis cefuroxime (Verified Allergy, Severe, 09/07/18) codeine (Verified Allergy, Severe, 09/07/18) anaphylaxis hydromorphone (Verified Allergy, Severe, PASS OUT, 08/25/16) hydromorphone HCl (Verified Allergy, Severe, 08/25/16) swelling throat iodine (Verified Allergy, Severe, 08/25/16) anaphylaxis latex (Verified Allergy, Severe, 08/25/16) anaphylaxis levofloxacin (Verified Allergy, Severe, 09/07/18) severe swelling throat telithromycin (Verified Allergy, Severe, ANAPHYLACTIC SHOCK, 09/07/18) trimethobenzamide (Verified Allergy, Severe, ANAPHYLACTIC SHOCK, 08/25/16) fluticasone (Verified Allergy, Mild, TACHYCARDIA (OK TO GIVE SIMILAR MEDS PER MD), 08/25/16) lactose (Verified Allergy, Mild, 08/25/16) salmeterol (Unverified Allergy, Mild, TACHYCARDIA (OK TO GIVE SIMILAR MEDS PER MD), 08/25/16) nut - unspecified (Unverified Allergy, Unknown, 09/07/18) Uncoded Allergies: SEAFOOD (Allergy, Severe, ANAPHYLAXIS, 01/12/10) NUTS (Allergy, Unknown, ANAPHYLAXIS, 09/07/18) Allergies Reviewed: Yes Labs/Studies Labs Reviewed: Reviewed by anesthesiologist Result Diagram: 09/10/1852109/10/18521 Laboratory Tests 09/10/18 05:22 test: N/A Studies: ECG Pre-procedure Exam Last vitals Vital Signs Date Temp Pulse Resp B/P (MAP) Pulse Ox O2 O2 Flow FiO2 Time Delivery Rate 09/10/18 84 12:01 09/10/18 97.6 22 145/66 96 Room Air 11:50 (92) 09/10/18 21 04:03 Airway: Adequate mouth opening, Adequate thyromental dist Mallampati: Mallampati II Teeth: Abnormal Lung: Normal Heart: Normal ASA Physical Status ASA physical status: 3 Emergency: None Planned Anesthetic General/MAC: ETT Nerve block: TAP (left) Pre-operative Attestations Prior to commencing anesthesia and surgery, the patient was re-evaluated, there was verification of: *The patient's identity *The results of appropriate recent lab work and preoperative vital signs *The above evaluation not changing prior to induction *Anesthetic plan, risk benefits, alternative and complications discussed with patient/family; questions answered; patient/family understands, accepts and wishes to proceed. CANDI WHITE September 10, 2018 16:13
[2018-09-10] MEDS ORDERED: hydrALAzine 20 MG INJ IV PRN (16:30)
[2018-09-10] MEDS ORDERED: FENTAnyl 50 MCG/ML VIAL IV PRN (16:30)
[2018-09-10] MEDS ORDERED: METOCLOPRAMIDE 10 MG INJ IV PRN (16:30)
[2018-09-10] MEDS ORDERED: ONDANSETRON 4 MG INJ IV PRN (16:30)
[2018-09-10] MEDS ORDERED: ALBUTEROL 0.083% (NEB) 2.5 MG/3 ML AMP HHN PRN (16:30)
[2018-09-10] MEDS ORDERED: LABETALOL HCL 20MG INJ IV PRN (16:30)
[2018-09-10] MEDS ORDERED: ROPIVACAINE 0.5 % 30 ML VIAL ONE (16:37)
[2018-09-10] MEDS ORDERED: FENTAnyl 50 MCG/ML VIAL ONE (16:37)
[2018-09-10] MEDS ORDERED: CLINDAMYCIN 600 MG/D5W (PMX) 50 ML IVPB ONE (17:09)
[2018-09-10] MEDS ORDERED: LIDOCAINE 100 MG SYRINGE ONE (17:09)
[2018-09-10] MEDS ORDERED: SUCCINYLCHOLINE CHLORIDE 100 MG/5 ML SYG IV ONE (17:09)
[2018-09-10] MEDS ORDERED: ROCURONIUM 50 MG INJ ONE (17:09)
[2018-09-10] MEDS ORDERED: PROPOFOL 20 ML ONE (17:09)
[2018-09-10] MEDS ORDERED: SUGAMMADEX SODIUM 200 MG/2 ML VIAL IV ONE (17:09)
--- NOTE | 2018-09-10 17:57 | OPR ---
Date/Time of Note Date/Time of Note DATE: 09/10/18 TIME: 17:50 Operative Report Procedure Date: September 10, 2018 Preoperative Diagnosis Left inguinal hernia, symptomatic Postoperative Diagnosis Same Operation/Procedure Performed 1. Open left inguinal hernia repair with mesh 2. Local anesthetic [place], [id number] Surgeon Karrie West MD Java Programming Professor Amy Jason NP Anesthesia Type: general (Plus local plus regional) Anesthesiologist: CANDI WHITE Estimated Blood Loss: 0 - 10 ml's Transfusion none Specimen None Grafts/Implants Polypropylene Tubes/Drains None Complications none Pt Condition Post Procedure: stable Disposition: PACU Indications Per consult note. Risks include but are not limited to bleeding, infection, abscess, seroma, leak, damage to intestines or any intra-abdominal/intrapelvic structures, hernia formation, chronic pain, need for re-operations or further surgeries, SC, stroke, PE, DVT, pneumonia, organ failures, or even . Procedure Description Patient was brought and placed supine on the operating table, and after induction of anesthesia, he was prepped and draped in usual sterile fashion and timeout was performed. SCDs had already been placed. Preoperative antibiotics had already been administered. All pressure points were well-padded. The ilioinguinal nerve block was performed by anesthesiologist. Local anesthetic was infiltrated along the incision parallel to the inguinal ligament. Incision was made in the skin and carried through subcutaneous tissue to the external oblique fascia. Fascia was opened sharply. Using Metzenbaums the fascia was opened with care taken not to injure the ilioinguinal nerve. Fascia was opened into the external ring. There was a direct hernia identified. To inguinal nerve the broad ligaments were ligated and excised. Bard mesh was used to secure to the pubic tubercle 2 with 0 Prolene. The lower suture was ran along the shelving edge all the way lateral to the internal ring. The superior suture was ran along the conjoined tendon past the internal ring as well. This point the hernia site was fully covered. Wound was irrigated to clear suctioning fluid. There was complete hemostasis. Wound was closed in multiple layers with irrigation between each layer. 2-0 Vicryl was used to close the external fascia and a running fashion leaving space for the external ring. Lubna's fascia was closed with 3-0 Vicryl in running fashion followed by 4-0 Monocryl subcuticular skin closure. Dermabond was applied. Patient was extubated and transferred to recovery room in stable condition and all counts were correct at the end of the operation 2. KARRIE WEST MD September 10, 2018 17:57
[2018-09-10] MEDS ORDERED: morphine 2 MG INJ IV PRN (18:00)
[2018-09-11] VITALS (8 sets, daily range): BP systolic 112–138; BP diastolic 55–68; PULSE 75–94; RESP 18–22
[2018-09-11] MEDS: DILTIAZEM 25 MG INJ IV SCH ×4 (00:28→17:47)
[2018-09-11] MEDS: MEROPENEM 1 GM/50ML(PMX) 50 ML IVPB SCH ×3 (05:26→19:58)
[2018-09-11] MEDS: MOMETASONE 0.24 GM INHALER INH SCH ×2 (09:00→19:57)
--- NOTE | 2018-09-11 09:07 | PN ---
DATE: 09/11/2018 SUBJECTIVE: The patient denies pain. No nausea, no vomiting, no shortness of breath. OBJECTIVE: VITAL SIGNS: Temperature 98.3, pulse 78 to 94, respirations 20, blood pressure 138/63, oxygen satura tion 97% on 2 liter nasal cannula oxygen. GENERAL: Well-developed, well-nourished female in no acute distress, lying in bed. CHEST: Clear to auscultation bilaterally except for increased expiratory phase. HEART: Regular rate and rhythm with occasional ectopy. ABDOMEN: Positive bowel sounds, soft, nondistended. Wound is clean, dry and intact. No drainage. Mild tenderness to palpation. EXTREMITIES: No cyanosis, clubbing or edema. NEUROLOGIC: The patient is nonfocal. LABORATORY DATA: Sodium 136, potassium 4.3, chloride 105, bicarbonate 22, BUN of 11, creatinine 0.45 , blood sugar of 77, magnesium 2.2. White blood cell count 13.1, hemoglobin 12.3, hematocrit 38.5, p latelets 199. ASSESSMENT AND PLAN: 1. Status post repair of incarcerated left inguinal hernia/small bowel obstruction. The patient is doing well status post surgery and tolerating clear liquids and has active bowel sounds and is passin g gas. We will continue with current plan of action. 2. Paroxysmal atrial fibrillation/hypertension. Stable. Continue telemetry monitoring and routine medications. 3. Asthma, stable. Continue with medications and p.r.n. breathing treatments. 4. Anticoagulation. We will resume Lovenox and Coumadin. 5. Depression and anxiety. We will restart her Sertraline. Dictated By: NADEEM HAMILTON MD SR/NTS Conf#: [id number] DID#: [id number] CC: NADEEM HAMILTON MD; KARRIE WEST MD;*End*
[2018-09-11] MEDS: SERTRALINE 50 MG TAB PO SCH (09:08)
[2018-09-11] MEDS: CYCLOSPORINE 0.05% OPH DROPERETTE BOTH EYES SCH ×2 (09:08→19:57)
[2018-09-11] MEDS: ENOXAPARIN 30 MG/0.3 ML SYG SC SCH (09:23)
[2018-09-11] MEDS: FAMOTIDINE 20 MG INJ IV SCH (10:20)
--- NOTE | 2018-09-11 12:07 | CONS ---
Assessment/Plan Assessment/Plan Hospital Course (Demo Recall) Preoperative cardiac risk stratification Small bowel obstruction with incarcerated hernia as per surgery status post surgery 09/10/2018 Paroxysmal atrial fibrillation, currently sinus rhythm Preserved left ventricular ejection fraction History of pacemaker Coagulopathy, secondary to Coumadin Doing well status post surgery Heart rate trend overall remained stable on current dose of Cardizem. Would transition to p.o. in the next 24 hours Blood pressure trend overall stable Consultation Date/Type/Reason Admit Date/Time September 07, 2018 at 18:28 Initial Consult Date 09/09/18 Type of Consult Cardiology Requesting Provider: NADEEM HAMILTON MD- Date/Time of Note DATE: 09/11/18 TIME: 12:05 24 HR Interval Summary Free Text/Dictation No palpitations, shortness of breath or chest pain Exam/Review of Systems Vital Signs Vitals Vital Signs Date Temp Pulse Resp B/P (MAP) Pulse Ox O2 O2 Flow FiO2 Time Delivery Rate 09/11/18 78 08:00 09/11/18 Nasal 2.0 07:50 Cannula 09/11/18 98.3 20 138/63 97 04:00 (88) 09/10/18 21 04:03 Intake and Output 09/10/18 09/10/18 09/11/18 1515:00 23:00 07:00 IntakeIntake Total 500 ml 200 ml OutputOutput Total 5 ml BalanceBalance 495 ml 200 ml Exam Constitutional: alert (Following commands, no apparent distress), frail Head: normocephalic Respiratory: other (Coarse breath sounds bilaterally, no wheezing) Cardiovascular: regular rate and rhythm (S1-S2 heard) Gastrointestinal: soft, bowel sounds Extremities: other (No significant edema) Labs Result Diagram: 09/11/18 0553 09/11/18 0553 Results 24hrs Laboratory Tests Test 09/11/18 05:53 White Blood Count 13.1 H Red Blood Count 4.37 Hemoglobin 12.3 Hematocrit 38.5 Mean Corpuscular Volume 88.1 Mean Corpuscular Hemoglobin 28.1 L Mean Corpuscular Hemoglobin Concent 31.9 L Red Cell Distribution Width 13.7 Platelet Count 199 Mean Platelet Volume 10.3 Immature Granulocytes % 0.800 H Neutrophils % 80.5 H Lymphocytes % 7.4 L Monocytes % 9.4 Eosinophils % 1.4 Basophils % 0.5 Nucleated Red Blood Cells % 0.0 Immature Granulocytes # 0.100 H Neutrophils # 10.6 H Lymphocytes # 1.0 Monocytes # 1.2 H Eosinophils # 0.2 Basophils # 0.1 Nucleated Red Blood Cells # 0.0 Prothrombin Time 14.2 Prothrombin Time Ratio 1.1 INR International Normalized Ratio 1.09 Activated Partial Thromboplast Time 31.0 Sodium Level 136 Potassium Level 4.3 Chloride Level 105 Carbon Dioxide Level 22 Anion Gap 9 Blood Urea Nitrogen 11 Creatinine 0.45 Est Glomerular Filtrat Rate mL/min Glucose Level 77 Calcium Level 9.0 Magnesium Level 2.2 Total Bilirubin 0.7 Direct Bilirubin 0.00 Indirect Bilirubin 0.7 Aspartate Amino Transf (AST/SGOT) 15 Alanine Aminotransferase (ALT/SGPT) 19 Alkaline Phosphatase 63 Total Protein 5.8 L Albumin 3.1 L Globulin 2.70 Albumin/Globulin Ratio 1.14 Medications Medications Current Medications Digoxin (Digoxin) 125 mcg DAILY@13 IV Last administered on 09/10/18 12:28; Admin Dose 125 MCG; Start 09/08/18 at 13:00 Cyclosporine (Restasis) 1 drop BID BOTH EYES Last administered on 09/11/18 09:08; Admin Dose 1 DROP; Start 09/07/18 at 21:00 Ondansetron HCl (Zofran Inj) 4 mg Q6H PRN IV NAUSEA AND/OR VOMITING Last administered on 09/09/18 03:53; Admin Dose 4 MG; Start 09/07/18 at 21:30 Hydralazine HCl (Apresoline) 5 mg Q6H PRN IV SBP>160 OR DBP>100 Last administered on 09/09/18 21:31; Admin Dose 5 MG; Start 09/07/18 at 21:30 Famotidine (Pepcid Iv) 20 mg Q12 IV Last administered on 09/11/18 10:20; Admin Dose 20 MG; Start 09/08/18 at 09:00 Meropenem/Sodium Chloride 50 ml @ 100 mls/hr Q8 IVPB Last administered on 09/11/18 05:26; Admin Dose 100 MLS/HR; Start 09/07/18 at 22:00 Mometasone Furoate (Asmanex) 1 puff BID RESP THERAPY INH Last administered on 09/10/18 20:08; Admin Dose 1 PUFF; Start 09/08/18 at 20:00 Levalbuterol (Xopenex Neb) 0.63 mg Q6H RESP THERAPY PRN HHN sob or wheezing Last administered on 09/08/18 16:42; Admin Dose 0.63 MG; Start 09/08/18 at 12:30 Lorazepam (Ativan) 0.25 mg Q8H PRN IV Anxiety Last administered on 09/09/18 03:54; Admin Dose 0.25 MG; Start 09/09/18 at 04:00 Diltiazem HCl (Cardizem Iv) 10 mg Q6 IV Last administered on 09/11/18 05:26; Admin Dose 10 MG; Start 09/09/18 at 18:00 Morphine Sulfate (morphine) 2 mg Q2H PRN IV Breakthrough PAIN; Start 09/10/18 at 18:00 Acetaminophen (Tylenol Tab) 1,000 mg Q6H PRN PO MILD PAIN(1-3)OR ELEVATED TEMP; Start 09/10/18 at 18:00 Enoxaparin Sodium (Lovenox) 30 mg DAILY SC Last administered on 09/11/18at 09:23; Admin Dose 30 MG; Start 09/11/18 at 09:00 Sertraline HCl (Zoloft) 25 mg DAILY PO Last administered on 09/11/18 09:08; Admin Dose 25 MG; Start 09/11/18 at 09:00 Warfarin Sodium (Coumadin) 5 mg ONCE@17 ONCE PO ; Start 09/11/18 at 17:00; Stop 09/11/18 at 17:01 Jones Long DO September 11, 2018 12:07
[2018-09-11] MEDS: DIGOXIN 500 MCG INJ IV SCH (12:58)
[2018-09-11] MEDS ORDERED: WARFARIN 5 MG TAB PO ONE (17:00)
--- NOTE | 2018-09-11 20:31 | PN ---
Date/Time of Note Date/Time of Note DATE: 09/11/18 TIME: 20:28 Assessment/Plan Lines/Catheters IV Catheter Type (from Nrs): Saline Lock Simons in Place (from Nrs): No Assessment/Plan Chief Complaint/Hosp Course 1. Left inguinal hernia with incarcerated small bowel however has reduced. Small bowel obstruction secondary to hernia > resolved on imaging and clini jovon. s/p Open LIHR c mesh 09/10. -ice -minimize narcotics -dc planning ok from surgical standpoint 2. Right inguinal hernia reducible however symptomatic. -Recommend staged operation to repair this at a later time > outpt f/u 3. Iatrogenic coagulopathy secondary to Coumadin use improving after reversal 4. Paroxysmal A. fib, sick sinus syndrome, hypertension -Electrolyte optimization -Cardiac optimization -Nutrition and medication optimization 5. UTI on antibiotics 6. Leukocytosis possibly secondary to recent steroids -Close monitoring 7. Hallucinations -Minimize narcotics and possible psychiatric meds > defer to primary team Thank you Subjective 24 Hr Interval Summary s/p Open left inguinal hernia repair with mesh 09/10. Feels better overall. Min pain. No f/c. No n/v. No cp/sob. No cough. No sz. No bleeding. Bowel function. No dysuria. No visual or neuro changes. Exam/Review of Systems Vital Signs Vitals Vital Signs Date Temp Pulse Resp B/P (MAP) Pulse Ox O2 O2 Flow FiO2 Time Delivery Rate 09/11/18 82 16:00 09/11/18 98.6 22 118/68 96 Nasal 2.0 16:00 (85) Cannula 09/10/18 21 04:03 Intake and Output 09/10/18 09/10/18 09/11/18 1515:00 23:00 07:00 IntakeIntake Total 500 ml 200 ml OutputOutput Total 5 ml BalanceBalance 495 ml 200 ml Exam Free Text/Dictation Constitutional: No oriented, No distress Psych: nl mood/affect Somewhat confused on morphine with some hallucinations Head: normocephalic, atraumatic Eyes: nl conjunctiva, EOMI, PERRL; No icteric ENMT: nl external ears & nose; No nl lips & teeth (Dry lips) Neck: supple, non-tender; No jvd Respiratory: normal air movement; No congested cough, No labored breathing Cardiovascular: regular rate and rhythm; No edema Gastrointestinal: soft, min tender, no erythema, No rebound or guarding Musculoskeletal: nl extremities to inspection; No joint tenderness Extremities: normal pulses; No calf tenderness, No edema Neurological: nl speech, nl strength Skin: nl turgor; No rash or lesions, No diaphoresis Lymph: nl lymph nodes Results Result Diagram: 09/11/18 0553 09/11/18 0553 KARRIE WEST MD September 11, 2018 20:31
[2018-09-12] VITALS (11 sets, daily range): BP systolic 122–159; BP diastolic 58–70; PULSE 62–85; RESP 18–19
[2018-09-12] MEDS: DILTIAZEM 25 MG INJ IV SCH ×3 (00:45→12:16)
[2018-09-12] MEDS: MEROPENEM 1 GM/50ML(PMX) 50 ML IVPB SCH ×3 (06:11→20:10)
--- NOTE | 2018-09-12 07:26 | PAC ---
Date/Time of Note Date/Time of Note DATE: 09/12/18 TIME: 07:26 Post-Anesthesia Notes Post-Anesthesia Note Last documented vital signs Vital Signs Date Temp Pulse Resp B/P (MAP) Pulse Ox O2 O2 Flow FiO2 Time Delivery Rate 09/12/18 98.1 76 19 127/60 96 06:47 (82) 09/12/18 2.0 06:14 09/11/18 Nasal 22:57 Cannula 09/10/18 21 04:03 Activity: WNL Respiratory function: WNL Cardiovascular function: WNL Mental status: Baseline Pain reasonably controlled: Yes Hydration appropriate: Yes Nausea/Vomiting absent: Yes CANDI WHITE September 12, 2018 07:26
[2018-09-12] MEDS ORDERED: NEUTRA-PHOS 250 MG PACKET PO ONE (08:30)
--- NOTE | 2018-09-12 08:47 | PN ---
DATE: 09/12/2018 SUBJECTIVE: The patient is lethargic and without complaint. OBJECTIVE: VITAL SIGNS: Temperature 98.1, pulse 76 and regular, respirations 19, blood pressure 127/60, oxygen saturation 99% on 2 liter nasal cannula oxygen. GENERAL: Well-developed female, in no acute distress, lying in bed. CHEST: Clear to auscultation bilaterally except for increased expiratory phase. HEART: Regular rate and rhythm. ABDOMEN: Positive bowel sounds, soft, nondistended. Wound is clean, dry and intact in the left lowe r quadrant. There is tenderness to palpation. No rebound. NEUROLOGIC: The patient is lethargic but arousable, otherwise nonfocal. LABORATORY DATA: INR 0.97, PTT of 29.7. PT of 13. Sodium 137, potassium 3.9, chloride 106, bicarbo tiffanie 26, BUN of 12, creatinine 0.41. Magnesium 2.4, phosphorus 2.1, calcium 9.7, glucose 91, albumin 3.2, hemoglobin of 12.3, hematocrit 37.7, white blood cell count 10.1, platelets of 202. ASSESSMENT AND PLAN: 1. Status post open repair with incarcerated left inguinal hernia/small bowel obstruction. The leanna ent is slowly improving and tolerating clear liquids. We will continue with current treatment plan, wound care and p.r.n. analgesics. 2. Paroxysmal atrial fibrillation/hypertension, stable with medications. 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 3. Urinary tract infection, stable on antibiotics. We will continue with IV meropenem. 4. Asthma, stable. Continue with medications and nebulizer. 5. Low phosphorus. We will replace with Neutra-Phos x1 and recheck. Dictated By: NADEEM HAMILTON MD SR/NTS Conf#: [id number] DID#: [id number] CC: KARRIE WEST MD; NADEEM HAMILTON MD;*[facility]*
[2018-09-12] MEDS: SERTRALINE 50 MG TAB PO SCH (09:01)
[2018-09-12] MEDS: FAMOTIDINE 20 MG TAB PO SCH (09:01)
[2018-09-12] MEDS: MOMETASONE 0.24 GM INHALER INH SCH ×2 (09:02→20:11)
[2018-09-12] MEDS: CYCLOSPORINE 0.05% OPH DROPERETTE BOTH EYES SCH ×2 (09:06→20:10)
[2018-09-12] MEDS: ENOXAPARIN 30 MG/0.3 ML SYG SC SCH (09:28)
--- NOTE | 2018-09-12 12:34 | PN ---
Date/Time of Note Date/Time of Note DATE: 09/12/18 TIME: 12:30 Assessment/Plan Lines/Catheters IV Catheter Type (from Nrs): Saline Lock Simons in Place (from Nrs): No Assessment/Plan Chief Complaint/Hosp Course 1. Left inguinal hernia with incarcerated small bowel however has reduced. Small bowel obstruction secondary to hernia > resolved on imaging and clini jovon. s/p Open LIHR c mesh 09/10. -Diet advance as tolerated -Ambulate as able -ice -minimize narcotics -dc planning ok from surgical standpoint 2. Right inguinal hernia reducible however symptomatic. -Recommend staged operation to repair this at a later time > outpt f/u 3. Iatrogenic coagulopathy secondary to Coumadin use improving after reversal 4. Paroxysmal A. fib, sick sinus syndrome, hypertension -Electrolyte optimization -Cardiac optimization -Nutrition and medication optimization 5. UTI on antibiotics 6. Leukocytosis possibly secondary to recent steroids -Close monitoring 7. Hallucinations -Minimize narcotics and possible psychiatric meds > defer to primary team thank you. Patient seen and examined in collaboration with Dr. Honorio Gamboa. Subjective 24 Hr Interval Summary Feels well. Some left lower quadrant pain. No fevers, chills, sob, congested cough, cp, palpitations, steiner, dizziness, nausea, vomiting, diarrhea, dysuria. Exam/Review of Systems Vital Signs Vitals Vital Signs Date Temp Pulse Resp B/P (MAP) Pulse Ox O2 O2 Flow FiO2 Time Delivery Rate 09/12/18 98.2 79 19 122/68 99 11:46 (86) 09/12/18 Nasal 2.0 08:45 Cannula 09/10/18 21 04:03 Intake and Output 09/11/18 09/11/18 09/12/18 1515:00 23:00 07:00 IntakeIntake Total 860 ml 400 ml BalanceBalance 860 ml 400 ml Exam Free Text/Dictation Constitutional: No oriented, No distress Psych: nl mood/affect Somewhat confused on morphine with some hallucinations Head: normocephalic, atraumatic Eyes: nl conjunctiva, EOMI, PERRL; No icteric ENMT: nl external ears & nose; No nl lips & teeth (Dry lips) Neck: supple, non-tender; No jvd Respiratory: normal air movement; No congested cough, No labored breathing Cardiovascular: regular rate and rhythm; No edema Gastrointestinal: soft, min tender, no erythema,, left lower quadrant incision site dry without drainage/discoloration/bruising No rebound or guarding Musculoskeletal: nl extremities to inspection; No joint tenderness Extremities: normal pulses; No calf tenderness, No edema Neurological: nl speech, nl strength Skin: nl turgor; No rash or lesions, No diaphoresis Lymph: nl lymph nodes Results Result Diagram: 09/12/18 0505 09/12/18 0505 DOMINGA BONILLA NP September 12, 2018 12:33
[2018-09-12] MEDS: DIGOXIN 500 MCG INJ IV SCH (13:13)
--- NOTE | 2018-09-12 15:27 | CONS ---
Assessment/Plan Assessment/Plan Hospital Course (Demo Recall) Preoperative cardiac risk stratification Small bowel obstruction with incarcerated hernia as per surgery status post surgery 09/10/2018 Paroxysmal atrial fibrillation, currently sinus rhythm Preserved left ventricular ejection fraction History of pacemaker Coagulopathy, secondary to Coumadin Doing well status post surgery Heart rate trend overall remained stable on current dose of Cardizem. Would transition to p.o. Cardizem and digoxin today Blood pressure trend overall stable Consultation Date/Type/Reason Admit Date/Time September 07, 2018 at 18:28 Initial Consult Date 09/09/18 Type of Consult Cardiology Requesting Provider: NADEEM HAMILTON MD- Date/Time of Note DATE: 09/12/18 TIME: 15:26 24 HR Interval Summary Free Text/Dictation No palpitations, shortness of breath Exam/Review of Systems Vital Signs Vitals Vital Signs Date Temp Pulse Resp B/P (MAP) Pulse Ox O2 O2 Flow FiO2 Time Delivery Rate 09/12/18 75 12:00 09/12/18 98.2 19 122/68 99 11:46 (86) 09/12/18 Nasal 2.0 08:45 Cannula 09/10/18 21 04:03 Intake and Output 09/11/18 09/11/18 09/12/18 1515:00 23:00 07:00 IntakeIntake Total 860 ml 400 ml BalanceBalance 860 ml 400 ml Exam Constitutional: alert, frail (Following commands, no apparent distress) Head: normocephalic Respiratory: clear to auscultation, normal air movement Cardiovascular: regular rate and rhythm (S1-S2 heard) Gastrointestinal: soft, non-tender, bowel sounds Extremities: other (No significant edema) Labs Result Diagram: 09/12/18 0505 09/12/18 0505 Results 24hrs Laboratory Tests Test 09/12/18 05:05 White Blood Count 10.1 # Red Blood Count 4.28 Hemoglobin 12.3 Hematocrit 37.7 Mean Corpuscular Volume 88.1 Mean Corpuscular Hemoglobin 28.7 L Mean Corpuscular Hemoglobin Concent 32.6 Red Cell Distribution Width 13.9 Platelet Count 202 Mean Platelet Volume 10.5 H Immature Granulocytes % 0.700 H Neutrophils % 69.1 Lymphocytes % 15.6 Monocytes % 10.9 Eosinophils % 3.1 Basophils % 0.6 Nucleated Red Blood Cells % 0.0 Immature Granulocytes # 0.070 H Neutrophils # 7.0 Lymphocytes # 1.6 Monocytes # 1.1 H Eosinophils # 0.3 Basophils # 0.1 Nucleated Red Blood Cells # 0.0 Prothrombin Time 13.0 Prothrombin Time Ratio 1.0 INR International Normalized Ratio 0.97 Activated Partial Thromboplast Time 29.7 Sodium Level 137 Potassium Level 3.9 Chloride Level 106 Carbon Dioxide Level 26 Anion Gap 5 Blood Urea Nitrogen 12 Creatinine 0.41 L Est Glomerular Filtrat Rate mL/min Glucose Level 91 Calcium Level 9.7 Phosphorus Level 2.1 L Magnesium Level 2.4 Total Bilirubin 0.6 Direct Bilirubin 0.00 Indirect Bilirubin 0.6 Aspartate Amino Transf (AST/SGOT) 19 Alanine Aminotransferase (ALT/SGPT) 23 Alkaline Phosphatase 59 Total Protein 5.7 L Albumin 3.2 L Globulin 2.50 Albumin/Globulin Ratio 1.28 Medications Medications Current Medications Digoxin (Digoxin) 125 mcg DAILY@13 IV Last administered on 09/12/18 13:13; Admin Dose 125 MCG; Start 09/08/18 at 13:00 Cyclosporine (Restasis) 1 drop BID BOTH EYES Last administered on 09/12/18 09:06; Admin Dose 1 DROP; Start 09/07/18 at 21:00 Ondansetron HCl (Zofran Inj) 4 mg Q6H PRN IV NAUSEA AND/OR VOMITING Last administered on 09/09/18 03:53; Admin Dose 4 MG; Start 09/07/18 at 21:30 Hydralazine HCl (Apresoline) 5 mg Q6H PRN IV SBP>160 OR DBP>100 Last administered on 09/09/18 21:31; Admin Dose 5 MG; Start 09/07/18 at 21:30 Meropenem/Sodium Chloride 50 ml @ 100 mls/hr Q8 IVPB Last administered on 09/12/18 13:13; Admin Dose 100 MLS/HR; Start 09/07/18 at 22:00 Mometasone Furoate (Asmanex) 1 puff BID RESP THERAPY INH Last administered on 09/12/18 09:02; Admin Dose 1 PUFF; Start 09/08/18 at 20:00 Levalbuterol (Xopenex Neb) 0.63 mg Q6H RESP THERAPY PRN HHN sob or wheezing Last administered on 09/08/18 16:42; Admin Dose 0.63 MG; Start 09/08/18 at 12:30 Lorazepam (Ativan) 0.25 mg Q8H PRN IV Anxiety Last administered on 09/09/18 03:54; Admin Dose 0.25 MG; Start 09/09/18 at 04:00 Diltiazem HCl (Cardizem Iv) 10 mg Q6 IV Last administered on 09/12/18 12:16; Admin Dose 10 MG; Start 09/09/18 at 18:00 Morphine Sulfate (morphine) 2 mg Q2H PRN IV Breakthrough PAIN Last administered on 09/12/18 06:11; Admin Dose 2 MG; Start 09/10/18 at 18:00 Acetaminophen (Tylenol Tab) 1,000 mg Q6H PRN PO MILD PAIN(1-3)OR ELEVATED TEMP; Start 09/10/18 at 18:00 Enoxaparin Sodium (Lovenox) 30 mg DAILY SC Last administered on 09/12/18 09:28; Admin Dose 30 MG; Start 09/11/18 at 09:00 Sertraline HCl (Zoloft) 25 mg DAILY PO Last administered on 09/12/18 09:01; Admin Dose 25 MG; Start 09/11/18 at 09:00 Famotidine (Pepcid) 20 mg DAILY PO Last administered on 09/12/18 09:01; Admin Dose 20 MG; Start 09/12/18 at 09:00 Amylase/Lipase/ Protease (Creon ([id number])) 1 cap WITH MEALS PO ; Start 09/12/18 at 18:00 Jones Long DO September 12, 2018 15:27
[2018-09-12] MEDS ORDERED: DILTIAZEM 25 MG INJ IV PRN (15:30)
[2018-09-12] MEDS: ACETAMINOPHEN 500 MG TAB PO PRN (18:05)
[2018-09-12] MEDS: CREON (24K-76K-120K) 1 CAP PO SCH (18:15)
[2018-09-12] MEDS: DILTIAZEM 30 MG TAB PO SCH (20:11)
[2018-09-13] VITALS (9 sets, daily range): BP systolic 110–138; BP diastolic 55–68; PULSE 61–89; RESP 17–19
[2018-09-13] MEDS ORDERED: HYDROCODONE/APAP (5/325) TAB PO PRN
[2018-09-13] MEDS ORDERED: morphine 2 MG INJ IV PRN
[2018-09-13] MEDS: ACETAMINOPHEN 500 MG TAB PO PRN (00:02)
[2018-09-13] MEDS: MEROPENEM 1 GM/50ML(PMX) 50 ML IVPB SCH ×3 (06:29→21:12)
[2018-09-13] MEDS: CYCLOSPORINE 0.05% OPH DROPERETTE BOTH EYES SCH ×2 (09:00→21:12)
--- NOTE | 2018-09-13 09:00 | PN ---
DATE: 09/13/2018 SUBJECTIVE: The patient is feeling a little bit better, still with pain. The patient had a bowel mo vement this morning. OBJECTIVE: VITAL SIGNS: Temperature 98.3, pulse 77 and regular, respirations 18, blood pressure 126/68, oxygen saturation 99% on 2 liter nasal cannula oxygen. GENERAL: Well-developed female, in no acute distress, lying in bed. CHEST: Clear to auscultation bilaterally except for increased expiratory phase. HEART: Regular rate and rhythm. ABDOMEN: Positive bowel sounds, soft, nondistended. Wound is clean, dry and intact, but there is mi ld to moderate tenderness to palpation. EXTREMITIES: No cyanosis, clubbing or edema. NEUROLOGIC: The patient is alert and oriented x3, otherwise nonfocal. LABORATORY DATA: Sodium 139, potassium 3.6, chloride 106, bicarbonate 26, BUN of 15, creatinine 0.4, glucose of 72, magnesium 2.4, phosphorus 2.3. INR of 0.9, white blood cell count 8.5, hemoglobin 12 .2, hematocrit 38.3, platelets 212. ASSESSMENT AND PLAN: 1. Status post open repair of left inguinal hernia, was incarcerated/small bowel obstruction. The p atient continues to improve slowly and there was no evidence of any small-bowel obstruction at this p oint. The patient had a bowel movement and will continue to advance diet as tolerated. Continue wit h p.r.n. pain medications and try to avoid narcotics. We will get the patient up with physical thera py in order to assist with her recovery. 2. Paroxysmal atrial fibrillation/hypertension, remains stable. Continue with telemetry monitoring. We will continue with her routine medications. 3. Asthma, stable. Continue with medications. 4. Hypophosphatemia. We will continue to replace phosphorus and follow. 5. Anxiety and depression, stable. Continue with her sertraline. Some of the patient's hallucinati ons may be related to both medications in her being off of the Sertraline for several days prior to t aking orals. We will continue to monitor, but no interventions needed at this time. Dictated By: NADEEM HAMILTON MD SR/NTS Conf#: [id number] DID#: [id number] CC: KARRIE WEST MD; NADEEM HAMILTON MD;*[facility]*
[2018-09-13] MEDS: NEUTRA-PHOS 250 MG PACKET PO SCH ×2 (09:24→21:12)
[2018-09-13] MEDS: CREON (24K-76K-120K) 1 CAP PO SCH ×3 (09:24→17:23)
[2018-09-13] MEDS: MOMETASONE 0.24 GM INHALER INH SCH ×2 (09:24→20:00)
[2018-09-13] MEDS: SERTRALINE 50 MG TAB PO SCH (09:25)
[2018-09-13] MEDS: FAMOTIDINE 20 MG TAB PO SCH (09:25)
[2018-09-13] MEDS: DILTIAZEM 30 MG TAB PO SCH ×3 (09:25→21:13)
[2018-09-13] MEDS: ENOXAPARIN 60 MG/0.6 ML SYG SC SCH (09:36)
--- NOTE | 2018-09-13 12:31 | CONS ---
Assessment/Plan Assessment/Plan Hospital Course (Demo Recall) Preoperative cardiac risk stratification Small bowel obstruction with incarcerated hernia as per surgery status post surgery 09/10/2018 Paroxysmal atrial fibrillation, currently sinus rhythm Preserved left ventricular ejection fraction History of pacemaker Doing well status post surgery Heart rate trend overall remained stable on current dose of Cardizem. Coumadin as per INR Consultation Date/Type/Reason Admit Date/Time September 07, 2018 at 18:28 Initial Consult Date 09/09/18 Type of Consult Cardiology Requesting Provider: NADEEM HAMILTON MD- Date/Time of Note DATE: 09/13/18 TIME: 12:30 24 HR Interval Summary Free Text/Dictation No shortness of breath, palpitations Exam/Review of Systems Vital Signs Vitals Vital Signs Date Temp Pulse Resp B/P (MAP) Pulse Ox O2 O2 Flow FiO2 Time Delivery Rate 09/13/18 68 12:15 09/13/18 98.2 17 119/68 96 12:06 (85) 09/13/18 Nasal 2.0 08:45 Cannula 09/10/18 21 04:03 Intake and Output 09/12/18 09/12/18 09/13/18 1515:00 23:00 07:00 IntakeIntake Total 350 ml 400 ml BalanceBalance 350 ml 400 ml Exam Constitutional: alert, oriented, frail Head: normocephalic Respiratory: other (Coarse breath sounds bilaterally, no wheezing) Cardiovascular: regular rate and rhythm (S1-S2 heard) Gastrointestinal: soft, non-tender, bowel sounds Extremities: other (No significant edema) Labs Result Diagram: 09/13/18 0551 09/13/18 0551 Results 24hrs Laboratory Tests Test 09/13/18 05:51 White Blood Count 8.5 Red Blood Count 4.30 Hemoglobin 12.2 Hematocrit 38.3 Mean Corpuscular Volume 89.1 Mean Corpuscular Hemoglobin 28.4 L Mean Corpuscular Hemoglobin Concent 31.9 L Red Cell Distribution Width 13.8 Platelet Count 212 Mean Platelet Volume 10.4 Immature Granulocytes % 0.700 H Neutrophils % 67.1 Lymphocytes % 16.8 Monocytes % 10.5 Eosinophils % 4.1 Basophils % 0.8 Nucleated Red Blood Cells % 0.0 Immature Granulocytes # 0.060 H Neutrophils # 5.7 Lymphocytes # 1.4 Monocytes # 0.9 Eosinophils # 0.4 Basophils # 0.1 Nucleated Red Blood Cells # 0.0 Prothrombin Time 12.3 Prothrombin Time Ratio 1.0 INR International Normalized Ratio 0.90 Sodium Level 139 Potassium Level 3.6 Chloride Level 106 Carbon Dioxide Level 26 Anion Gap 7 Blood Urea Nitrogen 15 Creatinine 0.40 L Est Glomerular Filtrat Rate mL/min Glucose Level 72 Calcium Level 10.0 Phosphorus Level 2.3 L Magnesium Level 2.4 Total Bilirubin 0.5 Direct Bilirubin 0.00 Indirect Bilirubin 0.5 Aspartate Amino Transf (AST/SGOT) 15 Alanine Aminotransferase (ALT/SGPT) 19 Alkaline Phosphatase 57 Total Protein 5.6 L Albumin 3.1 L Globulin 2.50 Albumin/Globulin Ratio 1.24 Medications Medications Current Medications Cyclosporine (Restasis) 1 drop BID BOTH EYES Last administered on 09/12/18 20:10; Admin Dose 1 DROP; Start 09/07/18 at 21:00 Ondansetron HCl (Zofran Inj) 4 mg Q6H PRN IV NAUSEA AND/OR VOMITING Last administered on 09/09/18 03:53; Admin Dose 4 MG; Start 09/07/18 at 21:30 Hydralazine HCl (Apresoline) 5 mg Q6H PRN IV SBP>160 OR DBP>100 Last administered on 09/09/18 21:31; Admin Dose 5 MG; Start 09/07/18 at 21:30 Meropenem/Sodium Chloride 50 ml @ 100 mls/hr Q8 IVPB Last administered on 09/13/18 06:29; Admin Dose 100 MLS/HR; Start 09/07/18 at 22:00 Mometasone Furoate (Asmanex) 1 puff BID RESP THERAPY INH Last administered on 09/13/18 09:24; Admin Dose 1 PUFF; Start 09/08/18 at 20:00 Levalbuterol (Xopenex Neb) 0.63 mg Q6H RESP THERAPY PRN HHN sob or wheezing Last administered on 09/08/18 16:42; Admin Dose 0.63 MG; Start 09/08/18 at 12:30 Lorazepam (Ativan) 0.25 mg Q8H PRN IV Anxiety Last administered on 09/09/18 03:54; Admin Dose 0.25 MG; Start 09/09/18 at 04:00 Acetaminophen (Tylenol Tab) 1,000 mg Q6H PRN PO MILD PAIN(1-3)OR ELEVATED TEMP Last administered on 09/13/18 00:02; Admin Dose 1,000 MG; Start 09/10/18 at 18:00 Sertraline HCl (Zoloft) 25 mg DAILY PO Last administered on 09/13/18 09:25; Admin Dose 25 MG; Start 09/11/18 at 09:00 Famotidine (Pepcid) 20 mg DAILY PO Last administered on 09/13/18 09:25; Admin Dose 20 MG; Start 09/12/18 at 09:00 Amylase/Lipase/ Protease (Creon ([id number])) 1 cap WITH MEALS PO Last adm inistered on 09/13/18 09:24; Admin Dose 1 CAP; Start 09/12/18 at 18:00 Diltiazem HCl (Cardizem Iv) 10 mg Q6 PRN IV sustained hr>130; Start 09/12/18 at 15:30 Diltiazem HCl (Cardizem) 30 mg TID PO Last administered on 09/13/18 09:25; Admin Dose 30 MG; Start 09/12/18 at 21:00 Digoxin (Digoxin) 0.125 mg DAILY@13 PO ; Start 09/13/18 at 13:00 Morphine Sulfate (morphine) 1 mg Q4H PRN IV Breakthrough PAIN; Start 09/13/18 at 00:00 Acetaminophen/ Hydrocodone Bitart ([place] (5/325)) 1 tab Q4H PRN PO MODERATE PAIN LEVEL 4-6; Start 09/13/18 at 00:00 Sodium Phosphate (Neutra-Phos) 250 mg BID PO Last administered on 09/13/18 09:24; Admin Dose 250 MG; Start 09/13/18 at 09:00 Warfarin Sodium (Coumadin) 5 mg DAILY@17 PO ; Start 09/13/18 at 17:00 Enoxaparin Sodium (Lovenox) 50 mg DAILY SC Last administered on 09/13/18 09:36; Admin Dose 50 MG; Start 09/13/18 at 09:30 Jones Long DO September 13, 2018 12:31
[2018-09-13] MEDS: DIGOXIN 0.125 MG TAB PO SCH (13:28)
[2018-09-13] MEDS: WARFARIN 5 MG TAB PO SCH (17:23)
--- NOTE | 2018-09-13 18:55 | PN ---
Date/Time of Note Date/Time of Note DATE: 09/13/18 TIME: 18:53 Assessment/Plan Lines/Catheters IV Catheter Type (from [facility]): Saline Lock Simons in Place (from [facility]): No Assessment/Plan Chief Complaint/Hosp Course 1. Left inguinal hernia with incarcerated small bowel however has reduced. Small bowel obstruction secondary to hernia > resolved on imaging and clini jovon. s/p Open LIHR c mesh 09/10. -Diet as tolerated -Ambulate as able -ice -minimize narcotics -dc ok from surgical standpoint 2. Right inguinal hernia reducible however symptomatic. -Recommend staged operation to repair this at a later time > outpt f/u 3. Iatrogenic coagulopathy secondary to Coumadin use improving after reversal 4. Paroxysmal A. fib, sick sinus syndrome, hypertension -Electrolyte optimization -Cardiac optimization -Nutrition and medication optimization 5. UTI on antibiotics 6. Leukocytosis possibly secondary to recent steroids resolved -Close monitoring 7. Hallucinations -Minimize narcotics and possible psychiatric meds > defer to primary team thank you. Patient seen and examined in collaboration with Dr. Honorio Gamboa. Subjective 24 Hr Interval Summary Feels well. + bowel function. No fevers, chills, sob, congested cough, cp, palpitations, steiner, dizziness, n/v/d/dysuria. Exam/Review of Systems Vital Signs Vitals Vital Signs Date Temp Pulse Resp B/P (MAP) Pulse Ox O2 O2 Flow FiO2 Time Delivery Rate 09/13/18 2.0 18:42 09/13/18 69 16:35 09/13/18 98.1 18 123/68 98 15:42 (86) 09/13/18 Nasal 08:45 Cannula 09/10/18 21 04:03 Intake and Output 09/12/18 09/12/18 09/13/18 1515:00 23:00 07:00 IntakeIntake Total 350 ml 400 ml BalanceBalance 350 ml 400 ml Exam Free Text/Dictation Constitutional: No oriented, No distress Psych: nl mood/affect Somewhat confused on morphine with some hallucinations Head: normocephalic, atraumatic Eyes: nl conjunctiva, EOMI, PERRL; No icteric ENMT: nl external ears & nose; No nl lips & teeth (Dry lips) Neck: supple, non-tender; No jvd Respiratory: normal air movement; No congested cough, No labored breathing Cardiovascular: regular rate and rhythm; No edema Gastrointestinal: soft, min tender, no erythema,, left lower quadrant incision site dry without drainage/discoloration/bruising No rebound or guarding Musculoskeletal: nl extremities to inspection; No joint tenderness Extremities: normal pulses; No calf tenderness, No edema Neurological: nl speech, nl strength Skin: nl turgor; No rash or lesions, No diaphoresis Lymph: nl lymph nodes Results Result Diagram: 09/13/18 0551 09/13/18 0551 DOMINGA BONILLA NP September 13, 2018 18:55
[2018-09-14] VITALS (11 sets, daily range): BP systolic 123–157; BP diastolic 58–71; PULSE 63–83; RESP 18–20
[2018-09-14] MEDS: FAMOTIDINE 20 MG TAB PO SCH (08:26)
[2018-09-14] MEDS: SERTRALINE 50 MG TAB PO SCH (08:26)
[2018-09-14] MEDS: CREON (24K-76K-120K) 1 CAP PO SCH ×3 (08:26→17:42)
[2018-09-14] MEDS: CYCLOSPORINE 0.05% OPH DROPERETTE BOTH EYES SCH ×2 (08:26→20:38)
[2018-09-14] MEDS: MEROPENEM 1 GM/50ML(PMX) 50 ML IVPB SCH ×2 (08:26→20:39)
[2018-09-14] MEDS: NEUTRA-PHOS 250 MG PACKET PO SCH ×2 (08:26→20:39)
[2018-09-14] MEDS: MOMETASONE 0.24 GM INHALER INH SCH ×2 (08:28→21:51)
[2018-09-14] MEDS: ENOXAPARIN 60 MG/0.6 ML SYG SC SCH (08:31)
[2018-09-14] MEDS: DILTIAZEM 30 MG TAB PO SCH ×3 (08:35→20:39)
[2018-09-14] MEDS: DIGOXIN 0.125 MG TAB PO SCH (13:14)
--- NOTE | 2018-09-14 15:35 | PN ---
Date/Time of Note Date/Time of Note DATE: 09/14/18 TIME: 15:32 Assessment/Plan VTE Prophylaxis Risk score (from Ns)>0 risk: 3 SCD applied (from Ns): Yes Pharmacological prophylaxis: LMWH Lines/Catheters IV Catheter Type (from Nrs): Saline Lock Urinary Cath still in place: No Assessment/Plan Assessment/Plan 1. Status post open repair of left inguinal hernia, was incarcerated/small bowel obstruction. The patient continues to improve slowly, will continue to advance diet as tolerated. Continue with p.r.n. pain medications and try to avoid narcotics. Starting physical therapy in order to assist with her recovery. Out of bed in chair for 30 minutes a day. 2. Paroxysmal atrial fibrillation/hypertension- Controlled on Diltiazem 30mg tid and Digoxine 0.125 qd . Continue with telemetry monitoring. Coumadin restarted yesterday. Will d/c Lovenox when INR >2.0 3. Asthma, stable. Continue with medications. 4. Hypophosphatemia. We will continue to replace phosphorus and follow. 5. Anxiety and depression, stable. Continue with her sertraline. Some of the patient's hallucinations may be related to both medications in her being off of the Sertraline for several days prior to taking orals. We will continue to monitor, but no interventions needed at this time. Result Diagram: 09/14/18 0538 09/14/18 0538 Results 24hrs Laboratory Tests Test 09/14/18 05:38 White Blood Count 8.3 Red Blood Count 4.14 L Hemoglobin 11.9 L Hematocrit 37.1 Mean Corpuscular Volume 89.6 Mean Corpuscular Hemoglobin 28.7 L Mean Corpuscular Hemoglobin Concent 32.1 Red Cell Distribution Width 13.5 Platelet Count 223 Mean Platelet Volume 10.4 Immature Granulocytes % 0.600 H Neutrophils % 68.5 Lymphocytes % 17.1 Monocytes % 10.2 Eosinophils % 2.9 Basophils % 0.7 Nucleated Red Blood Cells % 0.0 Immature Granulocytes # 0.050 H Neutrophils # 5.7 Lymphocytes # 1.4 Monocytes # 0.8 Eosinophils # 0.2 Basophils # 0.1 Nucleated Red Blood Cells # 0.0 Prothrombin Time 12.6 Prothrombin Time Ratio 1.0 INR International Normalized Ratio 0.93 Sodium Level 140 Potassium Level 3.9 Chloride Level 105 Carbon Dioxide Level 26 Anion Gap 9 Blood Urea Nitrogen 13 Creatinine 0.39 L Est Glomerular Filtrat Rate mL/min Glucose Level 87 Calcium Level 9.9 Phosphorus Level 2.5 Magnesium Level 2.3 Total Bilirubin 0.4 Direct Bilirubin 0.00 Indirect Bilirubin 0.4 Aspartate Amino Transf (AST/SGOT) 14 L Alanine Aminotransferase (ALT/SGPT) 21 Alkaline Phosphatase 57 Total Protein 5.6 L Albumin 3.1 L Globulin 2.50 Albumin/Globulin Ratio 1.24 Subjective 24 Hr Interval Summary Free Text/Dictation No pain unless she moves. Wants to get out of bed. Exam/Review of Systems Exam Vitals Vital Signs Date Temp Pulse Resp B/P (MAP) Pulse Ox O2 O2 Flow FiO2 Time Delivery Rate 09/14/18 72 12:04 09/14/18 98.0 20 125/62 95 11:59 (83) 09/14/18 Nasal 2.0 08:30 Cannula Intake and Output 09/13/18 09/13/18 09/14/18 1515:00 23:00 07:00 IntakeIntake Total 530 ml 50 ml BalanceBalance 530 ml 50 ml Constitutional: alert, oriented Head: normocephalic, atraumatic ENMT: nl external ears & nose Neck: supple Respiratory: clear to auscultation Cardiovascular: regular rate and rhythm Gastrointestinal: soft, other (left inguinal incision clean and dry.) Musculoskeletal: nl extremities to inspection Results Results 24hrs Laboratory Tests Test 09/14/18 05:38 White Blood Count 8.3 Red Blood Count 4.14 L Hemoglobin 11.9 L Hematocrit 37.1 Mean Corpuscular Volume 89.6 Mean Corpuscular Hemoglobin 28.7 L Mean Corpuscular Hemoglobin Concent 32.1 Red Cell Distribution Width 13.5 Platelet Count 223 Mean Platelet Volume 10.4 Immature Granulocytes % 0.600 H Neutrophils % 68.5 Lymphocytes % 17.1 Monocytes % 10.2 Eosinophils % 2.9 Basophils % 0.7 Nucleated Red Blood Cells % 0.0 Immature Granulocytes # 0.050 H Neutrophils # 5.7 Lymphocytes # 1.4 Monocytes # 0.8 Eosinophils # 0.2 Basophils # 0.1 Nucleated Red Blood Cells # 0.0 Prothrombin Time 12.6 Prothrombin Time Ratio 1.0 INR International Normalized Ratio 0.93 Sodium Level 140 Potassium Level 3.9 Chloride Level 105 Carbon Dioxide Level 26 Anion Gap 9 Blood Urea Nitrogen 13 Creatinine 0.39 L Est Glomerular Filtrat Rate mL/min Glucose Level 87 Calcium Level 9.9 Phosphorus Level 2.5 Magnesium Level 2.3 Total Bilirubin 0.4 Direct Bilirubin 0.00 Indirect Bilirubin 0.4 Aspartate Amino Transf (AST/SGOT) 14 L Alanine Aminotransferase (ALT/SGPT) 21 Alkaline Phosphatase 57 Total Protein 5.6 L Albumin 3.1 L Globulin 2.50 Albumin/Globulin Ratio 1.24 Medications Medication Current Medications Cyclosporine (Restasis) 1 drop BID BOTH EYES Last administered on 09/14/18 08:26; Admin Dose 1 DROP; Start 09/07/18 at 21:00 Ondansetron HCl (Zofran Inj) 4 mg Q6H PRN IV NAUSEA AND/OR VOMITING Last administered on 09/09/18 03:53; Admin Dose 4 MG; Start 09/07/18 at 21:30 Hydralazine HCl (Apresoline) 5 mg Q6H PRN IV SBP>160 OR DBP>100 Last administered on 09/09/18 21:31; Admin Dose 5 MG; Start 09/07/18 at 21:30 Mometasone Furoate (Asmanex) 1 puff BID RESP THERAPY INH Last administered on 09/14/18 08:28; Admin Dose 1 PUFF; Start 09/08/18 at 20:00 Levalbuterol (Xopenex Neb) 0.63 mg Q6H RESP THERAPY PRN HHN sob or wheezing Last administered on 09/08/18 16:42; Admin Dose 0.63 MG; Start 09/08/18 at 12:30 Lorazepam (Ativan) 0.25 mg Q8H PRN IV Anxiety Last administered on 09/09/18 03:54; Admin Dose 0.25 MG; Start 09/09/18 at 04:00 Acetaminophen (Tylenol Tab) 1,000 mg Q6H PRN PO MILD PAIN(1-3)OR ELEVATED TEMP Last administered on 09/13/18 00:02; Admin Dose 1,000 MG; Start 09/10/18 at 18:00 Sertraline HCl (Zoloft) 25 mg DAILY PO Last administered on 09/14/18 08:26; Admin Dose 25 MG; Start 09/11/18 at 09:00 Famotidine (Pepcid) 20 mg DAILY PO Last administered on 09/14/18 08:26; Admin Dose 20 MG; Start 09/12/18 at 09:00 Amylase/Lipase/ Protease (Creon ([id number])) 1 cap WITH MEALS PO Last administered on 09/14/18 13:14; Admin Dose 1 CAP; Start 09/12/18 at 18:00 Diltiazem HCl (Cardizem Iv) 10 mg Q6 PRN IV sustained hr>130; Start 09/12/18 at 15:30 Diltiazem HCl (Cardizem) 30 mg TID PO Last administered on 09/14/18 13:15; Admin Dose 30 MG; Start 09/12/18 at 21:00 Digoxin (Digoxin) 0.125 mg DAILY@13 PO Last administered on 09/14/18 13:14; Admin Dose 0.125 MG; Start 09/13/18 at 13:00 Morphine Sulfate (morphine) 1 mg Q4H PRN IV Breakthrough PAIN; Start 09/13/18 at 00:00 Acetaminophen/ Hydrocodone Bitart ([place] (5/325)) 1 tab Q4H PRN PO MODERATE PA IN LEVEL 4-6; Start 09/13/18 at 00:00 Sodium Phosphate (Neutra-Phos) 250 mg BID PO Last administered on 09/14/18 08:26; Admin Dose 250 MG; Start 09/13/18 at 09:00 Warfarin Sodium (Coumadin) 5 mg DAILY@17 PO Last administered on 09/13/18 17:23; Admin Dose 5 MG; Start 09/13/18 at 17:00 Enoxaparin Sodium (Lovenox) 50 mg DAILY SC Last administered on 09/14/18 08:31; Admin Dose 50 MG; Start 09/13/18 at 09:30 Meropenem/Sodium Chloride 50 ml @ 100 mls/hr Q12 IVPB Last administered on 09/14/18 08:26; Admin Dose 100 MLS/HR; Start 09/13/18 at 21:00 BETTY LINARES MD September 14, 2018 15:35
[2018-09-14] MEDS: WARFARIN 5 MG TAB PO SCH (17:43)
[2018-09-15] VITALS (10 sets, daily range): BP systolic 116–138; BP diastolic 55–65; PULSE 63–76; RESP 18–20
[2018-09-15] MEDS: CREON (24K-76K-120K) 1 CAP PO SCH ×3 (08:44→17:37)
[2018-09-15] MEDS: CYCLOSPORINE 0.05% OPH DROPERETTE BOTH EYES SCH ×2 (08:44→20:36)
[2018-09-15] MEDS: SERTRALINE 50 MG TAB PO SCH (08:44)
[2018-09-15] MEDS: FAMOTIDINE 20 MG TAB PO SCH (08:44)
[2018-09-15] MEDS: DILTIAZEM 30 MG TAB PO SCH ×3 (08:45→20:37)
[2018-09-15] MEDS: MEROPENEM 1 GM/50ML(PMX) 50 ML IVPB SCH ×2 (08:45→20:37)
[2018-09-15] MEDS: ENOXAPARIN 60 MG/0.6 ML SYG SC SCH (09:03)
[2018-09-15] MEDS: NEUTRA-PHOS 250 MG PACKET PO SCH ×2 (09:06→20:36)
[2018-09-15] MEDS: MOMETASONE 0.24 GM INHALER INH SCH ×2 (09:06→20:36)
[2018-09-15] MEDS ORDERED: MAGNESIUM HYDROXIDE 30ML CUP PO ONE (10:00)
--- NOTE | 2018-09-15 11:43 | CONS ---
Assessment/Plan Assessment/Plan Hospital Course (Demo Recall) Impression: Small bowel obstruction with incarcerated hernia, s/p operative repair Paroxysmal atrial fibrillation, maintaining sinus rhythm Preserved left ventricular ejection fraction History of pacemaker Recommendations Continue diltiazem Continue warfarin, monitor INR Bowel regimen per surgery/primary Consultation Date/Type/Reason Admit Date/Time September 07, 2018 at 18:28 Initial Consult Date 09/09/18 Type of Consult Cardiology Requesting Provider: NADEEM HAMILTON MD- Date/Time of Note DATE: 09/15/18 TIME: 11:40 24 HR Interval Summary Free Text/Dictation Has abdominal discomfort, frustrated that she cannot move her bowels. No chest discomfort. Telemetry reviewed and no afib noted, she is in nsr. Exam/Review of Systems Vital Signs Vitals Vital Signs Date Temp Pulse Resp B/P (MAP) Pulse Ox O2 O2 Flow FiO2 Time Delivery Rate 09/15/18 98.4 76 18 130/64 97 11:05 (86) 09/15/18 Nasal 2.0 09:38 Cannula Intake and Output 09/14/18 09/14/18 09/15/18 1515:00 23:00 07:00 IntakeIntake Total 50 ml 530 ml 100 ml BalanceBalance 50 ml 530 ml 100 ml Exam Constitutional: alert, oriented Psych: nl mood/affect Head: normocephalic, atraumatic Eyes: nl lids ENMT: nl external ears & nose Neck: No jvd, No bruits Respiratory: clear to auscultation, normal air movement Cardiovascular: regular rate and rhythm; No murmurs/extra sounds Gastrointestinal: soft, bowel sounds Musculoskeletal: nl extremities to inspection Extremities: No edema Neurological: nl mental status, nl speech Skin: nl turgor Labs Result Diagram: 09/14/18 0538 09/14/18 0538 Results 24hrs Laboratory Tests Test 09/15/18 05:28 Prothrombin Time 13.5 Prothrombin Time Ratio 1.1 INR International Normalized Ratio 1.02 Phosphorus Level 2.9 Medications Medications Current Medications Cyclosporine (Restasis) 1 drop BID BOTH EYES Last administered on 09/15/18at 08:44; Admin Dose 1 DROP; Start 09/07/18 at 21:00 Ondansetron HCl (Zofran Inj) 4 mg Q6H PRN IV NAUSEA AND/OR VOMITING Last administered on 09/09/18at 03:53; Admin Dose 4 MG; Start 09/07/18 at 21:30 Hydralazine HCl (Apresoline) 5 mg Q6H PRN IV SBP>160 OR DBP>100 Last adminis tered on 09/09/18 21:31; Admin Dose 5 MG; Start 09/07/18 at 21:30 Mometasone Furoate (Asmanex) 1 puff BID RESP THERAPY INH Last administered on 09/15/18 09:06; Admin Dose 1 PUFF; Start 09/08/18 at 20:00 Levalbuterol (Xopenex Neb) 0.63 mg Q6H RESP THERAPY PRN HHN sob or wheezing Last administered on 09/08/18 16:42; Admin Dose 0.63 MG; Start 09/08/18 at 12:30 Lorazepam (Ativan) 0.25 mg Q8H PRN IV Anxiety Last administered on 09/09/18 03:54; Admin Dose 0.25 MG; Start 09/09/18 at 04:00 Acetaminophen (Tylenol Tab) 1,000 mg Q6H PRN PO MILD PAIN(1-3)OR ELEVATED TEMP Last administered on 09/13/18 00:02; Admin Dose 1,000 MG; Start 09/10/18 at 18:00 Sertraline HCl (Zoloft) 25 mg DAILY PO Last administered on 09/15/18 08:44; Admin Dose 25 MG; Start 09/11/18 at 09:00 Famotidine (Pepcid) 20 mg DAILY PO Last administered on 09/15/18 08:44; Admin Dose 20 MG; Start 09/12/18 at 09:00 Amylase/Lipase/ Protease (Creon ([id number])) 1 cap WITH MEALS PO Last administered on 09/15/18 08:44; Admin Dose 1 CAP; Start 09/12/18 at 18:00 Diltiazem HCl (Cardizem Iv) 10 mg Q6 PRN IV sustained hr>130; Start 09/12/18 at 15:30 Diltiazem HCl (Cardizem) 30 mg TID PO Last administered on 09/15/18 08:45; Admin Dose 30 MG; Start 09/12/18 at 21:00 Digoxin (Digoxin) 0.125 mg DAILY@13 PO Last administered on 09/14/18 13:14; Admin Dose 0.125 MG; Start 09/13/18 at 13:00 Morphine Sulfate (morphine) 1 mg Q4H PRN IV Breakthrough PAIN; Start 09/13/18 at 00:00 Acetaminophen/ Hydrocodone Bitart ([place] (5/325)) 1 tab Q4H PRN PO MODERATE PAIN LEVEL 4-6; Start 09/13/18 at 00:00 Sodium Phosphate (Neutra-Phos) 250 mg BID PO Last administered on 09/15/18at 09:06; Admin Dose 250 MG; Start 09/13/18 at 09:00 Warfarin Sodium (Coumadin) 5 mg DAILY@17 PO Last administered on 09/14/18at 17:43; Admin Dose 5 MG; Start 09/13/18 at 17:00 Enoxaparin Sodium (Lovenox) 50 mg DAILY SC Last administered on 09/15/18at 09:03; Admin Dose 50 MG; Start 09/13/18 at 09:30 Meropenem/Sodium Chloride 50 ml @ 100 mls/hr Q12 IVPB Last administered on 09/15/18at 08:45; Admin Dose 100 MLS/HR; Start 09/13/18 at 21:00 ADAMS MARTINEZ September 15, 2018 11:43
[2018-09-15] MEDS: DIGOXIN 0.125 MG TAB PO SCH (12:45)
--- NOTE | 2018-09-15 17:20 | PN ---
Date/Time of Note Date/Time of Note DATE: 09/15/18 TIME: 17:18 Assessment/Plan VTE Prophylaxis Risk score (from Nsg)>0 risk: 13 SCD applied (from Nsg): Yes Pharmacological prophylaxis: LMWH Lines/Catheters IV Catheter Type (from Nrsg): Saline Lock Urinary Cath still in place: No Assessment/Plan Assessment/Plan 1. Status post open repair of left inguinal hernia, was incarcerated/small bowel obstruction. Continue to advance diet as tolerated. Continue with p.r.n. pain medications and try to avoid narcotics. Starting physical therapy as tolerated. Patient agreeable to being out of bed in chair for 30 minutes a day. Discussed with patient regarding possible rehab or penitentiary facility placement. She will think about it but would prefer to go home. 2. Paroxysmal atrial fibrillation/hypertension- Controlled on Diltiazem 30mg tid and Digoxine 0.125 qd . Continue with telemetry monitoring. Coumadin restarted yesterday. Will d/c Lovenox when INR >2.0 3. Asthma, stable. Continue with medications. 4. Constipation - We will continue MOM as needed. 5. Anxiety and depression, stable. Continue with her sertraline and lorazepam as needed Result Diagram: 09/14/1853709/14/1838 Results 24hrs Laboratory Tests Test 09/15/18 05:28 Prothrombin Time 13.5 Prothrombin Time Ratio 1.1 INR International Normalized Ratio 1.02 Phosphorus Level 2.9 Subjective 24 Hr Interval Summary Free Text/Dictation patient complained of constipation this morning relieved with milk of magnesia.she declined colace stool softener due to difficulty swallowing pills from esophageal stricture. Exam/Review of Systems Exam Vitals Vital Signs Date Temp Pulse Resp B/P (MAP) Pulse Ox O2 O2 Flow FiO2 Time Delivery Rate 09/15/18 73 16:07 09/15/18 98.4 18 130/64 97 11:05 (86) 09/15/18 Nasal 2.0 09:38 Cannula Intake and Output 09/14/18 09/14/18 09/15/18 1515:00 23:00 07:00 IntakeIntake Total 50 ml 530 ml 100 ml BalanceBalance 50 ml 530 ml 100 ml Constitutional: alert, oriented Eyes: nl conjunctiva ENMT: nl external ears & nose Respiratory: clear to auscultation Cardiovascular: regular rate and rhythm Gastrointestinal: other Musculoskeletal: nl extremities to inspection Results Results 24hrs Laboratory Tests Test 09/15/18 05:28 Prothrombin Time 13.5 Prothrombin Time Ratio 1.1 INR International Normalized Ratio 1.02 Phosphorus Level 2.9 Medications Medication Current Medications Cyclosporine (Restasis) 1 drop BID BOTH EYES Last administered on 09/15/18 08:44; Admin Dose 1 DROP; Start 09/07/18 at 21:00 Ondansetron HCl (Zofran Inj) 4 mg Q6H PRN IV NAUSEA AND/OR VOMITING Last administered on 09/09/18 03:53; Admin Dose 4 MG; Start 09/07/18 at 21:30 Hydralazine HCl (Apresoline) 5 mg Q6H PRN IV SBP>160 OR DBP>100 Last administered on 09/09/18 21:31; Admin Dose 5 MG; Start 09/07/18 at 21:30 Mometasone Furoate (Asmanex) 1 puff BID RESP THERAPY INH Last administered on 09/15/18 09:06; Admin Dose 1 PUFF; Start 09/08/18 at 20:00 Levalbuterol (Xopenex Neb) 0.63 mg Q6H RESP THERAPY PRN HHN sob or wheezing Last administered on 09/08/18 16:42; Admin Dose 0.63 MG; Start 09/08/18 at 12:30 Lorazepam (Ativan) 0.25 mg Q8H PRN IV Anxiety Last administered on 09/09/18 03:54; Admin Dose 0.25 MG; Start 09/09/18 at 04:00 Acetaminophen (Tylenol Tab) 1,000 mg Q6H PRN PO MILD PAIN(1-3)OR ELEVATED TEMP Last administered on 09/13/18 00:02; Admin Dose 1,000 MG; Start 09/10/18 at 18:00 Sertraline HCl (Zoloft) 25 mg DAILY PO Last administered on 09/15/18 08:44; Admin Dose 25 MG; Start 09/11/18 at 09:00 Famotidine (Pepcid) 20 mg DAILY PO Last administered on 09/15/18 08:44; Admin Dose 20 MG; Start 09/12/18 at 09:00 Amylase/Lipase/ Protease (Creon (04y-[id number])) 1 cap WITH MEALS PO Last administered on 09/15/18 12:03; Admin Dose 1 CAP; Start 09/12/18 at 18:00 Diltiazem HCl (Cardizem Iv) 10 mg Q6 PRN IV sustained hr>130; Start 09/12/18 at 15:30 Diltiazem HCl (Cardizem) 30 mg TID PO Last administered on 09/15/18 12:45; Admin Dose 30 MG; Start 09/12/18 at 21:00 Digoxin (Digoxin) 0.125 mg DAILY@13 PO Last administered on 09/15/18 12:45; Admin Dose 0.125 MG; Start 09/13/18 at 13:00 Morphine Sulfate (morphine) 1 mg Q4H PRN IV Breakthrough PAIN; Start 09/13/18 at 00:00 Acetaminophen/ Hydrocodone Bitart ([place] (5/325)) 1 tab Q4H PRN PO MODERATE PAIN LEVEL 4-6; Start 09/13/18 at 00:00 Sodium Phosphate (Neutra-Phos) 250 mg BID PO Last administered on 09/15/18 09:06; Admin Dose 250 MG; Start 09/13/18 at 09:00 Warfarin Sodium (Coumadin) 5 mg DAILY@17 PO Last administered on 09/14/18 17:43; Admin Dose 5 MG; Start 09/13/18 at 17:00 Enoxaparin Sodium (Lovenox) 50 mg DAILY SC Last administered on 09/15/18 09:03; Admin Dose 50 MG; Start 09/13/18 at 09:30 Meropenem/Sodium Chloride 50 ml @ 100 mls/hr Q12 IVPB Last administered on 08:45; Admin Dose 100 MLS/HR; Start 09/13/18 at 21:00 BETTY LINARES MD September 15, 2018 17:20
[2018-09-15] MEDS: WARFARIN 5 MG TAB PO SCH (17:37)
[2018-09-16] VITALS (10 sets, daily range): BP systolic 119–141; BP diastolic 58–76; PULSE 60–76; RESP 17–18
[2018-09-16] MEDS: NEUTRA-PHOS 250 MG PACKET PO SCH ×2 (08:12→21:26)
[2018-09-16] MEDS: SERTRALINE 50 MG TAB PO SCH (08:12)
[2018-09-16] MEDS: FAMOTIDINE 20 MG TAB PO SCH (08:12)
[2018-09-16] MEDS: CREON (24K-76K-120K) 1 CAP PO SCH ×3 (08:12→17:54)
[2018-09-16] MEDS: DILTIAZEM 30 MG TAB PO SCH ×3 (08:14→21:00)
[2018-09-16] MEDS: MEROPENEM 1 GM/50ML(PMX) 50 ML IVPB SCH ×2 (08:14→21:27)
[2018-09-16] MEDS: MOMETASONE 0.24 GM INHALER INH SCH ×2 (08:21→21:26)
[2018-09-16] MEDS: ENOXAPARIN 60 MG/0.6 ML SYG SC SCH (08:40)
[2018-09-16] MEDS: CYCLOSPORINE 0.05% OPH DROPERETTE BOTH EYES SCH ×2 (08:46→21:00)
[2018-09-16] MEDS: DIGOXIN 0.125 MG TAB PO SCH (12:32)
[2018-09-16] MEDS: WARFARIN 5 MG TAB PO SCH (16:42)
[2018-09-17] VITALS (10 sets, daily range): BP systolic 109–149; BP diastolic 57–77; PULSE 60–75; RESP 18–20
[2018-09-17] MEDS: CREON (24K-76K-120K) 1 CAP PO SCH ×3 (08:29→17:14)
[2018-09-17] MEDS: FAMOTIDINE 20 MG TAB PO SCH (08:29)
[2018-09-17] MEDS: DILTIAZEM 30 MG TAB PO SCH ×3 (08:29→21:00)
[2018-09-17] MEDS: NEUTRA-PHOS 250 MG PACKET PO SCH ×2 (08:29→21:10)
[2018-09-17] MEDS: SERTRALINE 50 MG TAB PO SCH (08:30)
[2018-09-17] MEDS: MEROPENEM 1 GM/50ML(PMX) 50 ML IVPB SCH ×2 (08:30→21:10)
[2018-09-17] MEDS: ENOXAPARIN 60 MG/0.6 ML SYG SC SCH (08:54)
--- NOTE | 2018-09-17 09:17 | PN ---
DATE: 09/17/2018 SUBJECTIVE: The patient continues to have moderate abdominal pain at times, especially with movement , but otherwise having good appetite. No nausea, no vomiting and having bowel movements. OBJECTIVE: VITAL SIGNS: Temperature 97.6, blood pressure 136/64, pulse 60 and regular, respirations 20, oxygen saturation 100% on room air. GENERAL: Well-developed, thin female in no acute distress, lying in bed. CHEST: Clear to auscultation bilaterally except for increased expiratory phase. HEART: Regular rate and rhythm. ABDOMEN: Positive bowel sounds, soft, nondistended. Wound is clean, dry and intact. There is mild to moderate tenderness to palpation in the left lower quadrant. NEUROLOGIC: Nonfocal. EXTREMITIES: No cyanosis, clubbing or edema. ASSESSMENT AND PLAN: 1. Status post incarcerated hernia repair/small bowel obstruction. Patient continues to improve slo wly, but will continue to need ongoing recovery and possibly rehabilitation. 2. Debility. We will have acute rehab evaluate the patient to see if she is a candidate for acute r ehabilitation. If note, would suggest a custodial facility for transfer prior to going home. 3. Paroxysmal AFIB/hypertension. Stable. Continue with telemetry monitoring and medications. 4. Urinary tract infection, stable on antibiotics. Will repeat culture. 5. Asthma, stable. Continue with medications. 6. Gastroesophageal reflux disease, stable. Continue with meds and diet. 7. Anxiety and depression, stable. Continue with the patient's medication. Dictated By: NADEEM HAMILTON MD SR/NTS Conf#: [id number] DID#: [id number] CC: KARRIE WEST MD;*End*
--- NOTE | 2018-09-17 10:10 | PN ---
Date/Time of Note Date/Time of Note DATE: 09/17/18 TIME: 10:09 Assessment/Plan Lines/Catheters IV Catheter Type (from Nrs): Saline Lock Simons in Place (from Nrs): No Assessment/Plan Chief Complaint/Hosp Course 1. Left inguinal hernia with incarcerated small bowel however has reduced. Small bowel obstruction secondary to hernia > resolved on imaging and clini jovon. s/p Open LIHR c mesh 09/10. -Diet as tolerated -Ambulate as able -ice -minimize narcotics -dc ok from surgical standpoint> agree with fpc facility or ARU 2. Right inguinal hernia reducible however symptomatic. -Recommend staged operation to repair this at a later time > outpt f/u 3. Iatrogenic coagulopathy secondary to Coumadin use improving after reversal 4. Paroxysmal A. fib, sick sinus syndrome, hypertension -Electrolyte optimization -Cardiac optimization -Nutrition and medication optimization 5. UTI on antibiotics 6. Leukocytosis possibly secondary to recent steroids resolved -Close monitoring 7. Hallucinations> improved -Minimize narcotics and possible psychiatric meds > defer to primary team thank you. Patient seen and examined in collaboration with Dr. Honorio Gamboa. Subjective 24 Hr Interval Summary No acute pain. + Bowel function. No fevers, chills, sob, congested cough, cp, palpitations, steiner, dizziness, nausea, vomiting, diarrhea, dysuria. Exam/Review of Systems Vital Signs Vitals Vital Signs Date Temp Pulse Resp B/P (MAP) Pulse Ox O2 O2 Flow FiO2 Time Delivery Rate 09/17/18 60 08:13 09/17/18 97.6 20 136/64 100 Nasal 07:50 (88) Cannula 09/16/18 2.0 20:00 Intake and Output 09/16/18 09/16/18 09/17/18 1414:59 22:59 06:59 IntakeIntake Total 1060 ml 350 ml BalanceBalance 1060 ml 350 ml Exam Free Text/Dictation Constitutional: No oriented, No distress Psych: nl mood/affect Somewhat confused on morphine with some hallucinations Head: normocephalic, atraumatic Eyes: nl conjunctiva, EOMI, PERRL; No icteric ENMT: nl external ears & nose; No nl lips & teeth (Dry lips) Neck: supple, non-tender; No jvd Respiratory: normal air movement; No congested cough, No labored breathing Cardiovascular: regular rate and rhythm; No edema Gastrointestinal: soft, min tender, no erythema,, left lower quadrant incision site dry without drainage/discoloration/bruising No rebound or guarding Musculoskeletal: nl extremities to inspection; No joint tenderness Extremities: normal pulses; No calf tenderness, No edema Neurological: nl speech, nl strength Skin: nl turgor; No rash or lesions, No diaphoresis Lymph: nl lymph nodes Results Result Diagram: 09/14/18 0538 09/14/18 0538 DOMINGA BONILLA NP September 17, 2018 10:10
[2018-09-17] MEDS: MOMETASONE 0.24 GM INHALER INH SCH ×2 (12:11→20:00)
[2018-09-17] MEDS: CYCLOSPORINE 0.05% OPH DROPERETTE BOTH EYES SCH ×2 (12:11→21:00)
[2018-09-17] MEDS: DIGOXIN 0.125 MG TAB PO SCH (12:13)
--- NOTE | 2018-09-17 15:40 | CONS ---
Assessment/Plan Assessment/Plan Hospital Course (Demo Recall) Preoperative cardiac risk stratification Small bowel obstruction with incarcerated hernia as per surgery status post surgery 09/10/2018 Paroxysmal atrial fibrillation, currently sinus rhythm Preserved left ventricular ejection fraction History of pacemaker Doing well status post surgery Heart rate trend overall remained stable on current dose of Cardizem. Coumadin as per INR Consultation Date/Type/Reason Admit Date/Time September 07, 2018 at 18:28 Initial Consult Date 09/09/18 Type of Consult Cardiology Requesting Provider: NADEEM HAMILTON MD- Date/Time of Note DATE: 09/17/18 TIME: 15:39 24 HR Interval Summary Free Text/Dictation No shortness of breath, palpitations Exam/Review of Systems Vital Signs Vitals Vital Signs Date Temp Pulse Resp B/P (MAP) Pulse Ox O2 O2 Flow FiO2 Time Delivery Rate 09/17/18 98.0 60 18 149/69 100 Room Air 15:29 (95) 09/17/18 2.0 08:30 Intake and Output 09/16/18 09/16/18 09/17/18 1515:00 23:00 07:00 IntakeIntake Total 1060 ml 350 ml BalanceBalance 1060 ml 350 ml Exam Exam Sleeping but arousable, no apparent distress Head: normocephalic Respiratory: clear to auscultation, normal air movement Cardiovascular: regular rate and rhythm (S1-S2 heard) Gastrointestinal: soft, non-tender, bowel sounds Extremities: other (No significant edema) Labs Result Diagram: 09/14/18 0538 09/14/18 0538 Results 24hrs Laboratory Tests Test 09/17/18 09:43 Prothrombin Time 16.5 #H Prothrombin Time Ratio 1.3 INR International Normalized Ratio 1.32 Medications Medications Current Medications Cyclosporine (Restasis) 1 drop BID BOTH EYES Last administered on 09/17/18at 12:11; Admin Dose 1 DROP; Start 09/07/18 at 21:00 Ondansetron HCl (Zofran Inj) 4 mg Q6H PRN IV NAUSEA AND/OR VOMITING Last administered on 09/09/18at 03:53; Admin Dose 4 MG; Start 09/07/18 at 21:30 Hydralazine HCl (Apresoline) 5 mg Q6H PRN IV SBP>160 OR DBP>100 Last ad ministered on 09/09/18at 21:31; Admin Dose 5 MG; Start 09/07/18 at 21:30 Mometasone Furoate (Asmanex) 1 puff BID RESP THERAPY INH Last administered on 09/17/18 12:11; Admin Dose 1 PUFF; Start 09/08/18 at 20:00 Levalbuterol (Xopenex Neb) 0.63 mg Q6H RESP THERAPY PRN HHN sob or wheezing Last administered on 09/08/18 16:42; Admin Dose 0.63 MG; Start 09/08/18 at 12:30 Lorazepam (Ativan) 0.25 mg Q8H PRN IV Anxiety Last administered on 09/09/18 03:54; Admin Dose 0.25 MG; Start 09/09/18 at 04:00 Acetaminophen (Tylenol Tab) 1,000 mg Q6H PRN PO MILD PAIN(1-3)OR ELEVATED TEMP Last administered on 09/13/18 00:02; Admin Dose 1,000 MG; Start 09/10/18 at 18:00 Sertraline HCl (Zoloft) 25 mg DAILY PO Last administered on 09/17/18 08:30; Admin Dose 25 MG; Start 09/11/18 at 09:00 Famotidine (Pepcid) 20 mg DAILY PO Last administered on 09/17/18 08:29; Admin Dose 20 MG; Start 09/12/18 at 09:00 Amylase/Lipase/ Protease (Creon ([id number])) 1 cap WITH MEALS PO Last administered on 09/17/18 12:11; Admin Dose 1 CAP; Start 09/12/18 at 18:00 Diltiazem HCl (Cardizem Iv) 10 mg Q6 PRN IV sustained hr>130; Start 09/12/18 at 15:30 Diltiazem HCl (Cardizem) 30 mg TID PO Last administered on 09/17/18 12:12; Admin Dose 30 MG; Start 09/12/18 at 21:00 Digoxin (Digoxin) 0.125 mg DAILY@13 PO Last administered on 09/17/18 12:13; Admin Dose 0.125 MG; Start 09/13/18 at 13:00 Morphine Sulfate (morphine) 1 mg Q4H PRN IV Breakthrough PAIN; Start 09/13/18 at 00:00 Acetaminophen/ Hydrocodone Bitart ([place] (5/325)) 1 tab Q4H PRN PO MODERATE PAIN LEVEL 4-6 Last administered on 09/16/18 16:41; Admin Dose 1 TAB; Start 09/13/18 at 00:00 Sodium Phosphate (Neutra-Phos) 250 mg BID PO Last administered on 09/17/18 08:29; Admin Dose 250 MG; Start 09/13/18 at 09:00 Warfarin Sodium (Coumadin) 5 mg DAILY@17 PO Last administered on 09/16/18 16:42; Admin Dose 5 MG; Start 09/13/18 at 17:00 Enoxaparin Sodium (Lovenox) 50 mg DAILY SC Last administered on 09/17/18 08:54; Admin Dose 50 MG; Start 09/13/18 at 09:30 Meropenem/Sodium Chloride 50 ml @ 100 mls/hr Q12 IVPB Last administered on 09/17/18 08:30; Admin Dose 100 MLS/HR; Start 09/13/18 at 21:00 Jones Long DO September 17, 2018 15:40
[2018-09-17] MEDS: WARFARIN 5 MG TAB PO SCH (17:14)
[2018-09-18] VITALS (12 sets, daily range): BP systolic 116–149; BP diastolic 55–72; PULSE 56–71; RESP 17–20
[2018-09-18] MEDS: CREON (24K-76K-120K) 1 CAP PO SCH ×3 (08:31→17:13)
[2018-09-18] MEDS: MEROPENEM 1 GM/50ML(PMX) 50 ML IVPB SCH ×2 (08:33→20:47)
[2018-09-18] MEDS: ENOXAPARIN 60 MG/0.6 ML SYG SC SCH (08:48)
[2018-09-18] MEDS: FAMOTIDINE 20 MG TAB PO SCH (09:03)
[2018-09-18] MEDS: DILTIAZEM 30 MG TAB PO SCH ×3 (09:03→20:46)
[2018-09-18] MEDS: NEUTRA-PHOS 250 MG PACKET PO SCH ×2 (09:04→20:47)
[2018-09-18] MEDS: SERTRALINE 50 MG TAB PO SCH (09:04)
--- NOTE | 2018-09-18 09:04 | PN ---
Date/Time of Note Date/Time of Note DATE: 09/18/18 TIME: 09:02 Assessment/Plan Lines/Catheters IV Catheter Type (from Nrsg): Saline Lock Simons in Place (from Nrsg): No Assessment/Plan Chief Complaint/Hosp Course 1. Left inguinal hernia with incarcerated small bowel however has reduced. Small bowel obstruction secondary to hernia > resolved on imaging and clini jovon. s/p Open LIHR c mesh 09/10. -Diet as tolerated -Ambulate as able> continue with physical therapy -ice pack to abdomen as needed for pain -minimize narcotics -dc ok from surgical standpoint> agree with [facility] facility or ARU 2. Right inguinal hernia reducible however symptomatic. -Recommend staged operation to repair this at a later time > outpt f/u 3. Iatrogenic coagulopathy secondary to Coumadin use improving after reversal 4. Paroxysmal A. fib, sick sinus syndrome, hypertension -Electrolyte optimization -Cardiac optimization -Nutrition and medication optimization 5. UTI on antibiotics 6. Leukocytosis possibly secondary to recent steroids resolved -Close monitoring 7. Hallucinations> improved -Minimize narcotics and possible psychiatric meds > defer to primary team thank you. Patient seen and examined in collaboration with Dr. Honorio Gamboa. Subjective 24 Hr Interval Summary No acute pain. Tolerating diet. + Bowel function. No fevers, chills, sob, congested cough, cp, palpitations, steiner, dizziness, nausea, vomiting, diarrhea, dysuria. Exam/Review of Systems Vital Signs Vitals Vital Signs Date Temp Pulse Resp B/P (MAP) Pulse Ox O2 O2 Flow FiO2 Time Delivery Rate 09/18/18 66 08:20 09/18/18 98.6 20 129/60 98 07:13 (83) 09/18/18 2.0 04:15 09/17/18 Nasal 20:00 Cannula Intake and Output 09/17/18 09/17/18 09/18/18 1515:00 23:00 07:00 IntakeIntake Total 50 ml 480 ml 350 ml BalanceBalance 50 ml 480 ml 350 ml Exam Free Text/Dictation Constitutional: No oriented, No distress Psych: nl mood/affect Somewhat confused on morphine with some hallucinations Head: normocephalic, atraumatic Eyes: nl conjunctiva, EOMI, PERRL; No icteric ENMT: nl external ears & nose; nl lips & teeth Neck: supple, non-tender; No jvd Respiratory: normal air movement; No congested cough, No labored breathing Cardiovascular: regular rate and rhythm; No edema Gastrointestinal: soft, min tender, no erythema,, left lower quadrant incision site dry without drainage/discoloration/bruising No rebound or guarding Musculoskeletal: nl extremities to inspection; No joint tenderness Extremities: normal pulses; No calf tenderness, No edema Neurological: nl speech, nl strength Skin: nl turgor; No rash or lesions, No diaphoresis Lymph: nl lymph nodes Results Result Diagram: 09/18/18 0537 09/18/18 0537 DOMINGA BONILLA NP September 18, 2018 09:04
[2018-09-18] MEDS: MOMETASONE 0.24 GM INHALER INH SCH ×2 (09:05→20:46)
[2018-09-18] MEDS: CYCLOSPORINE 0.05% OPH DROPERETTE BOTH EYES SCH ×2 (09:08→20:46)
--- NOTE | 2018-09-18 09:43 | PN ---
DATE: 09/18/2018 SUBJECTIVE: The patient has mild pain, otherwise okay. Appetite is good. OBJECTIVE: VITAL SIGNS: Temperature 98.6, pulse 59 and regular, respirations 20, blood pressure 129/60, oxygen saturation 98% on 2 liter nasal cannula oxygen. GENERAL: Well-developed, thin female, in no acute distress, sitting up in bed. LUNGS: Clear to auscultation bilaterally. HEART: Regular rate and rhythm. ABDOMEN: Soft, nondistended. Active bowel sounds. Wound is clean, dry and intact. There is mild t o moderate tenderness in the left lower quadrant. EXTREMITIES: No cyanosis, clubbing, or edema. NEUROLOGIC: Nonfocal. LABORATORY DATA: White blood cell count 5.7, hemoglobin 11.9, hematocrit 37.5, platelets 261. PT 17 .0, INR 1.37. Sodium 140, potassium 4.2, chloride 108, bicarbonate 30, BUN 19, creatinine 0.45, bloo d sugar of 91. Magnesium 2.6, phosphorus 3.2. ASSESSMENT AND PLAN: 1. Status post repair of incarcerated left inguinal hernia/small bowel obstruction. The patient con tinues to improve slowly and will continue current treatment plan. We will continue with analgesics, advancing diet and ambulation. 2. Debility. We will see if the patient is a candidate for acute rehabilitation and if not, we will send the patient to a shelter facility for further rehabilitation. 3. Paroxysmal atrial fibrillation/hypertension. Stable. Continue with telemetry monitoring, as the patient has a labile history. We will continue with current medications. We will continue with the Coumadin and Lovenox until the INR is therapeutic. 4. Asthma, stable. Continue with medications. 5. Urinary tract infection, stable with antibiotics and we will await repeat culture. 6. Anxiety/depression, stable. Continue with medications. Dictated By: NADEEM HAMILTON MD SR/NTS Conf#: [id number] DID#: [id number] CC: NADEEM HAMILTON MD; KARRIE WEST MD;*End*
--- NOTE | 2018-09-18 13:10 | CONS ---
Assessment/Plan Assessment/Plan Hospital Course (Demo Recall) Preoperative cardiac risk stratification Small bowel obstruction with incarcerated hernia as per surgery status post surgery 09/10/2018 Paroxysmal atrial fibrillation, currently sinus rhythm Preserved left ventricular ejection fraction History of pacemaker Doing well status post surgery Heart rate trend overall remained stable on current dose of Cardizem. Coumadin as per INR Consultation Date/Type/Reason Admit Date/Time September 07, 2018 at 18:28 Initial Consult Date 09/09/18 Type of Consult Cardiology Requesting Provider: NADEEM HAMILTON MD- Date/Time of Note DATE: 09/18/18 TIME: 13:09 24 HR Interval Summary Free Text/Dictation Occasional sharp pain in her shoulder, denies palpitations Exam/Review of Systems Vital Signs Vitals Vital Signs Date Temp Pulse Resp B/P (MAP) Pulse Ox O2 O2 Flow FiO2 Time Delivery Rate 09/18/18 67 12:06 09/18/18 98.3 20 126/58 98 11:27 (80) 09/18/18 Nasal 2.0 08:00 Cannula Intake and Output 09/17/18 09/17/18 09/18/18 1515:00 23:00 07:00 IntakeIntake Total 50 ml 480 ml 350 ml BalanceBalance 50 ml 480 ml 350 ml Exam Constitutional: alert, oriented Head: normocephalic Respiratory: clear to auscultation, normal air movement Cardiovascular: regular rate and rhythm (S1-S2 heard) Gastrointestinal: soft, non-tender, bowel sounds Extremities: other (No edema) Labs Result Diagram: 09/18/18 0537 09/18/18 0537 Results 24hrs Laboratory Tests Test 09/18/18 05:37 White Blood Count 5.7 # Red Blood Count 4.14 L Hemoglobin 11.9 L Hematocrit 37.5 Mean Corpuscular Volume 90.6 Mean Corpuscular Hemoglobin 28.7 L Mean Corpuscular Hemoglobin Concent 31.7 L Red Cell Distribution Width 14.1 Platelet Count 261 Mean Platelet Volume 10.5 H Immature Granulocytes % 0.500 H Neutrophils % 53.4 Lymphocytes % 31.7 Monocytes % 8.8 Eosinophils % 4.4 Basophils % 1.2 Nucleated Red Blood Cells % 0.0 Immature Granulocytes # 0.030 Neutrophils # 3.0 Lymphocytes # 1.8 Monocytes # 0.5 Eosinophils # 0.3 Basophils # 0.1 Nucleated Red Blood Cells # 0.0 Prothrombin Time 17.0 H Prothrombin Time Ratio 1.3 INR International Normalized Ratio 1.37 Sodium Level 140 Potassium Level 4.4 Chloride Level 108 Carbon Dioxide Level 30 Anion Gap 2 L Blood Urea Nitrogen 19 Creatinine 0.45 Est Glomerular Filtrat Rate mL/min Glucose Level 91 Calcium Level 10.1 Phosphorus Level 3.2 Magnesium Level 2.6 H Medications Medications Current Medications Cyclosporine (Restasis) 1 drop BID BOTH EYES Last administered on 09/18/18 09:08; Admin Dose 1 DROP; Start 09/07/18 at 21:00 Ondansetron HCl (Zofran Inj) 4 mg Q6H PRN IV NAUSEA AND/OR VOMITING Last administered on 09/09/18 03:53; Admin Dose 4 MG; Start 09/07/18 at 21:30 Hydralazine HCl (Apresoline) 5 mg Q6H PRN IV SBP>160 OR DBP>100 Last administered on 09/09/18 21:31; Admin Dose 5 MG; Start 09/07/18 at 21:30 Mometasone Furoate (Asmanex) 1 puff BID RESP THERAPY INH Last administered on 09/18/18 09:05; Admin Dose 1 PUFF; Start 09/08/18 at 20:00 Levalbuterol (Xopenex Neb) 0.63 mg Q6H RESP THERAPY PRN HHN sob or wheezing Last administered on 09/08/18 16:42; Admin Dose 0.63 MG; Start 09/08/18 at 12:30 Lorazepam (Ativan) 0.25 mg Q8H PRN IV Anxiety Last administered on 09/09/18 03:54; Admin Dose 0.25 MG; Start 09/09/18 at 04:00 Acetaminophen (Tylenol Tab) 1,000 mg Q6H PRN PO MILD PAIN(1-3)OR ELEVATED TEMP Last administered on 09/13/18 00:02; Admin Dose 1,000 MG; Start 09/10/18 at 18:00 Sertraline HCl (Zoloft) 25 mg DAILY PO Last administered on 09/18/18 09:04; Admin Dose 25 MG; Start 09/11/18 at 09:00 Famotidine (Pepcid) 20 mg DAILY PO Last administered on 09/18/18 09:03; Admin Dose 20 MG; Start 09/12/18 at 09:00 Amylase/Lipase/ Protease (Creon ([id number])) 1 cap WITH MEALS PO Last administered on 09/18/18 13:04; Admin Dose 1 CAP; Start 09/12/18 at 18:00 Diltiazem HCl (Cardizem Iv) 10 mg Q6 PRN IV sustained hr>130; Start 09/12/18 at 15:30 Diltiazem HCl (Cardizem) 30 mg TID PO Last administered on 09/18/18 09:03; Admin Dose 30 MG; Start 09/12/18 at 21:00 Digoxin (Digoxin) 0.125 mg DAILY@13 PO Last administered on 09/17/18 12:13; Admin Dose 0.125 MG; Start 09/13/18 at 13:00 Morphine Sulfate (morphine) 1 mg Q4H PRN IV Breakthrough PAIN; Start 09/13/18 at 00:00 Acetaminophen/ Hydrocodone Bitart ([place] (5/325)) 1 tab Q4H PRN PO MODERATE PAIN LEVEL 4-6 Last administered on 09/16/18 16:41; Admin Dose 1 TAB; Start 09/13/18 at 00:00 Sodium Phosphate (Neutra-Phos) 250 mg BID PO Last administered on 09/18/18 09:04; Admin Dose 250 MG; Start 09/13/18 at 09:00 Warfarin Sodium (Coumadin) 5 mg DAILY@17 PO Last administered on 09/17/18 17:14; Admin Dose 5 MG; Start 09/13/18 at 17:00 Enoxaparin Sodium (Lovenox) 50 mg DAILY SC Last administered on 09/18/18 08:48; Admin Dose 50 MG; Start 09/13/18 at 09:30 Meropenem/Sodium Chloride 50 ml @ 100 mls/hr Q12 IVPB Last administered on 09/18/18 08:33; Admin Dose 100 MLS/HR; Start 09/13/18 at 21:00 Jones Long DO September 18, 2018 13:10
[2018-09-18] MEDS: DIGOXIN 0.125 MG TAB PO SCH (13:29)
[2018-09-18] MEDS: WARFARIN 5 MG TAB PO SCH (17:57)
[2018-09-19] VITALS (13 sets, daily range): BP systolic 121–136; BP diastolic 59–66; PULSE 59–61; RESP 17–20
[2018-09-19] MEDS: CREON (24K-76K-120K) 1 CAP PO SCH ×3 (08:58→17:26)
[2018-09-19] MEDS: DILTIAZEM 30 MG TAB PO SCH ×3 (08:59→20:42)
[2018-09-19] MEDS: NEUTRA-PHOS 250 MG PACKET PO SCH ×2 (08:59→20:40)
[2018-09-19] MEDS: FAMOTIDINE 20 MG TAB PO SCH (08:59)
[2018-09-19] MEDS: SERTRALINE 50 MG TAB PO SCH (08:59)
[2018-09-19] MEDS: ENOXAPARIN 60 MG/0.6 ML SYG SC SCH (09:09)
--- NOTE | 2018-09-19 10:20 | PN ---
DATE: 09/19/2018 SUBJECTIVE: The patient is feeling better, less pain, still very weak. No palpitations, no chest pa in. OBJECTIVE: VITAL SIGNS: Temperature 98.6, pulse of 61, blood pressure 136/64, oxygen saturation 97% on 2 liter nasal cannula oxygen, respiratory rate 20. GENERAL: Well-developed, thin female, in no acute distress, lying in bed. LUNGS: Clear to auscultation bilaterally. HEART: Regular rate and rhythm. ABDOMEN: Soft, nondistended, normoactive bowel sounds. Wound is clean, dry and intact, and there is mild to moderate tenderness to palpation, especially in the left lower quadrant. EXTREMITIES: No cyanosis, clubbing or edema. NEUROLOGIC: Nonfocal. LABORATORY DATA: White blood cell count 4.7, hemoglobin 10.9, hematocrit 35.1, platelets 259. INR o f 1.37. PT of 17.0. Sodium 141, potassium 4.2, chloride 108, bicarbonate 31, BUN of 15, creatinine 0.45, blood sugar of 86, calcium of 9.8. ASSESSMENT AND PLAN: 1. Status post repair of incarcerated left inguinal hernia/small bowel obstruction. The patient con tinues to improve slowly. We will continue with diet, analgesics and ambulation. The patient no gladys sarah needs to be on antibiotics. 2. Urinary tract infection, improved. We will discontinue the meropenem. 3. Paroxysmal atrial fibrillation/hypertension. The patient currently remains stable on medications , but is not therapeutic on Coumadin yet. We will continue with the Lovenox overlapping with the Cou madin and continue Coumadin and checking protime. 4. Asthma, stable. Continue with medications. 5. Depression, anxiety, stable. Continue with medications. 6. Debility. The patient is not a candidate for acute rehab and we will plan for transfer to a [facility] nursing facility in the next 48 hours, likely. We will continue with current plans at this point with physical therapy on the floor. Dictated By: NADEEM HAMILTON MD SR/NTS Conf#: [id number] DID#: [id number] CC: KARRIE WEST MD; NADEEM HAMILTON MD;*EndCC*
--- NOTE | 2018-09-19 10:44 | PN ---
Date/Time of Note Date/Time of Note DATE: 09/19/18 TIME: 10:42 Assessment/Plan Lines/Catheters IV Catheter Type (from Nrsg): Saline Lock Simons in Place (from Nrsg): No Assessment/Plan Chief Complaint/Hosp Course 1. Left inguinal hernia with incarcerated small bowel however has reduced. Small bowel obstruction secondary to hernia > resolved on imaging and clini jovon. s/p Open LIHR c mesh 09/10. -Diet as tolerated -Ambulate as able> continue with physical therapy -ice pack to abdomen as needed for pain -minimize narcotics -dc ok from surgical standpoint> [facility] with [facility] facility 2. Right inguinal hernia reducible however symptomatic. -Recommend staged operation to repair this at a later time > outpt f/u 3. Iatrogenic coagulopathy secondary to Coumadin use improving after reversal 4. Paroxysmal A. fib, sick sinus syndrome, hypertension -Electrolyte optimization -Cardiac optimization -Nutrition and medication optimization 5. UTI status post antibiotics -Encourage frequent bladder emptying thank you. Patient seen and examined in collaboration with Dr. Honorio Gamboa. Subjective 24 Hr Interval Summary No acute complaints. No fevers, chills, sob, congested cough, cp, palpitations, steiner, dizziness, nausea, vomiting, diarrhea, dysuria. + Bowel function Exam/Review of Systems Vital Signs Vitals Vital Signs Date Temp Pulse Resp B/P (MAP) Pulse Ox O2 O2 Flow FiO2 Time Delivery Rate 09/19/18 61 08:12 09/19/18 98.6 20 136/64 97 07:18 (88) 09/19/18 2.0 01:40 09/18/18 Nasal 20:00 Cannula Intake and Output 09/18/18 09/18/18 09/19/18 1515:00 23:00 07:00 IntakeIntake Total 50 ml 600 ml 450 ml BalanceBalance 50 ml 600 ml 450 ml Exam Free Text/Dictation Constitutional: No oriented, No distress Psych: Anxious intermittently Head: normocephalic, atraumatic Eyes: nl conjunctiva, EOMI, PERRL; No icteric ENMT: nl external ears & nose; nl lips & teeth Neck: supple, non-tender; No jvd Respiratory: normal air movement; No congested cough, No labored breathing Cardiovascular: regular rate and rhythm; No edema Gastrointestinal: soft, min tender, no erythema,, left lower quadrant incision site dry without drainage/discoloration/bruising No rebound or guarding Musculoskeletal: nl extremities to inspection; No joint tenderness Extremities: normal pulses; No calf tenderness, No edema Neurological: nl speech, nl strength Skin: nl turgor; No rash or lesions, No diaphoresis Lymph: nl lymph nodes Results Result Diagram: 09/19/18 0532 09/19/18 0532 DOMINGA BONILLA NP September 19, 2018 10:44
[2018-09-19] MEDS: CYCLOSPORINE 0.05% OPH DROPERETTE BOTH EYES SCH ×2 (10:46→20:40)
[2018-09-19] MEDS: MOMETASONE 0.24 GM INHALER INH SCH ×2 (10:46→23:17)
[2018-09-19] MEDS: DIGOXIN 0.125 MG TAB PO SCH (11:55)
[2018-09-19] MEDS: LEVALBUTEROL (NEB) 0.63 MG/3 ML AMP HHN PRN (13:03)
--- NOTE | 2018-09-19 13:59 | CONS ---
Assessment/Plan Assessment/Plan Hospital Course (Demo Recall) Preoperative cardiac risk stratification Small bowel obstruction with incarcerated hernia as per surgery status post surgery 09/10/2018 Paroxysmal atrial fibrillation, currently sinus rhythm Preserved left ventricular ejection fraction History of pacemaker Doing well status post surgery Heart rate trend overall remained stable on current dose of Cardizem. Coumadin as per INR Consultation Date/Type/Reason Admit Date/Time September 07, 2018 at 18:28 Initial Consult Date 09/09/18 Type of Consult Cardiology Requesting Provider: ANDEEM HAMILTON MD- Date/Time of Note DATE: 09/19/18 TIME: 13:58 24 HR Interval Summary Free Text/Dictation Denies shortness of breath, palpitations. Pains of sharp left shoulder pain yesterday Exam/Review of Systems Vital Signs Vitals Vital Signs Date Temp Pulse Resp B/P (MAP) Pulse Ox O2 O2 Flow FiO2 Time Delivery Rate 09/19/18 2.0 13:04 09/19/18 66 98 Nasal 13:04 Cannula 09/19/18 98.0 20 134/61 11:57 (85) Intake and Output 09/18/18 09/18/18 09/19/18 1515:00 23:00 07:00 IntakeIntake Total 50 ml 600 ml 450 ml BalanceBalance 50 ml 600 ml 450 ml Exam Constitutional: alert, oriented (No apparent distress) Head: normocephalic Respiratory: other (Coarse breath sounds bilaterally, no wheezing) Cardiovascular: regular rate and rhythm (S1-S2 heard) Gastrointestinal: soft, non-tender, bowel sounds Extremities: other (No significant edema) Labs Result Diagram: 09/19/18 0532 09/19/18 0532 Results 24hrs Laboratory Tests Test 09/19/18 05:32 White Blood Count 4.7 L Red Blood Count 3.85 L Hemoglobin 10.9 L Hematocrit 35.1 L Mean Corpuscular Volume 91.2 Mean Corpuscular Hemoglobin 28.3 L Mean Corpuscular Hemoglobin Concent 31.1 L Red Cell Distribution Width 14.1 Platelet Count 259 Mean Platelet Volume 10.7 H Immature Granulocytes % 0.600 H Neutrophils % 50.8 Lymphocytes % 32.5 Monocytes % 10.7 Eosinophils % 4.1 Basophils % 1.3 Nucleated Red Blood Cells % 0.0 Immature Granulocytes # 0.030 Neutrophils # 2.4 Lymphocytes # 1.5 Monocytes # 0.5 Eosinophils # 0.2 Basophils # 0.1 Nucleated Red Blood Cells # 0.0 Prothrombin Time 17.0 H Prothrombin Time Ratio 1.3 INR International Normalized Ratio 1.37 Sodium Level 141 Potassium Level 4.2 Chloride Level 108 Carbon Dioxide Level 31 Anion Gap 2 L Blood Urea Nitrogen 15 Creatinine 0.45 Est Glomerular Filtrat Rate mL/min Glucose Level 86 Calcium Level 9.8 Medications Medications Current Medications Cyclosporine (Restasis) 1 drop BID BOTH EYES Last administered on 09/19/18 10:46; Admin Dose 1 DROP; Start 09/07/18 at 21:00 Ondansetron HCl (Zofran Inj) 4 mg Q6H PRN IV NAUSEA AND/OR VOMITING Last administered on 09/09/18 03:53; Admin Dose 4 MG; Start 09/07/18 at 21:30 Hydralazine HCl (Apresoline) 5 mg Q6H PRN IV SBP>160 OR DBP>100 Last administered on 09/09/18 21:31; Admin Dose 5 MG; Start 09/07/18 at 21:30 Mometasone Furoate (Asmanex) 1 puff BID RESP THERAPY INH Last administered on 09/19/18 10:46; Admin Dose 1 PUFF; Start 09/08/18 at 20:00 Levalbuterol (Xopenex Neb) 0.63 mg Q6H RESP THERAPY PRN HHN sob or wheezing Last administered on 09/19/18 13:03; Admin Dose 0.63 MG; Start 09/08/18 at 12:30 Lorazepam (Ativan) 0.25 mg Q8H PRN IV Anxiety Last administered on 09/09/18 03:54; Admin Dose 0.25 MG; Start 09/09/18 at 04:00 Acetaminophen (Tylenol Tab) 1,000 mg Q6H PRN PO MILD PAIN(1-3)OR ELEVATED TEMP Last administered on 09/13/18 00:02; Admin Dose 1,000 MG; Start 09/10/18 at 18:00 Sertraline HCl (Zoloft) 25 mg DAILY PO Last administered on 09/19/18 08:59; Admin Dose 25 MG; Start 09/11/18 at 09:00 Famotidine (Pepcid) 20 mg DAILY PO Last administered on 09/19/18 08:59; Admin Dose 20 MG; Start 09/12/18 at 09:00 Amylase/Lipase/ Protease (Creon ([id number])) 1 cap WITH MEALS PO Last administered on 09/19/18 11:53; Admin Dose 1 CAP; Start 09/12/18 at 18:00 Diltiazem HCl (Cardizem Iv) 10 mg Q6 PRN IV sustained hr>130; Start 09/12/18 at 15:30 Diltiazem HCl (Cardizem) 30 mg TID PO Last administered on 09/19/18 11:56; Admin Dose 30 MG; Start 09/12/18 at 21:00 Digoxin (Digoxin) 0.125 mg DAILY@13 PO Last administered on 09/19/18 11:55; Admin Dose 0.125 MG; Start 09/13/18 at 13:00 Morphine Sulfate (morphine) 1 mg Q4H PRN IV Breakthrough PAIN Last administered on 09/19/18 13:00; Admin Dose 1 MG; Start 09/13/18 at 00:00 Acetaminophen/ Hydrocodone Bitart ([place] (5/325)) 1 tab Q4H PRN PO MODERATE PAIN LEVEL 4-6 Last administered on 09/16/18 16:41; Admin Dose 1 TAB; Start 09/13/18 at 00:00 Sodium Phosphate (Neutra-Phos) 250 mg BID PO Last administered on 09/19/18 08:59; Admin Dose 250 MG; Start 09/13/18 at 09:00 Warfarin Sodium (Coumadin) 5 mg DAILY@17 PO Last administered on 09/18/18 17:57; Admin Dose 5 MG; Start 09/13/18 at 17:00 Enoxaparin Sodium (Lovenox) 50 mg DAILY SC Last administered on 09/19/18 09:09; Admin Dose 50 MG; Start 09/13/18 at 09:30 Jones Long DO September 19, 2018 13:59
[2018-09-19] MEDS: WARFARIN 5 MG TAB PO SCH (17:26)
[2018-09-20] VITALS (10 sets, daily range): BP systolic 124–135; BP diastolic 61–69; PULSE 60–63; RESP 18–19
[2018-09-20] MEDS: CREON (24K-76K-120K) 1 CAP PO SCH ×3 (07:27→16:38)
[2018-09-20] MEDS: NEUTRA-PHOS 250 MG PACKET PO SCH (07:28)
[2018-09-20] MEDS: CYCLOSPORINE 0.05% OPH DROPERETTE BOTH EYES SCH (07:29)
[2018-09-20] MEDS: FAMOTIDINE 20 MG TAB PO SCH (07:29)
[2018-09-20] MEDS: SERTRALINE 50 MG TAB PO SCH (07:30)
[2018-09-20] MEDS: DILTIAZEM 30 MG TAB PO SCH ×2 (07:31→11:54)
[2018-09-20] MEDS: MOMETASONE 0.24 GM INHALER INH SCH (07:31)
[2018-09-20] MEDS: ENOXAPARIN 60 MG/0.6 ML SYG SC SCH (08:04)
[2018-09-20] MEDS: DIGOXIN 0.125 MG TAB PO SCH (11:53)
--- NOTE | 2018-09-20 11:58 | PN ---
DATE: 09/20/2018 SUBJECTIVE: The patient is without complaints. Minimal abdominal pain, still feels weak. OBJECTIVE: VITAL SIGNS: Temperature 98.3, pulse 60, respirations 19, blood pressure 131/69, oxygen saturation 9 8% on 2 liters nasal cannula oxygen. GENERAL: Well-developed, thin female, in no acute distress, sitting up in bed. LUNGS: Clear to auscultation bilaterally. HEART: Regular rate and rhythm. ABDOMEN: Soft, nondistended, normoactive bowel sounds. There is minimal tenderness to palpation in the left lower quadrant and the wound is clean, dry and intact. EXTREMITIES: No cyanosis, clubbing or edema. LABORATORY DATA: INR of 1.38, PT of 17.1. Sodium 141, potassium 4.3, chloride 108, bicarbonate 30, BUN of 13, creatinine 0.46, glucose of 87, magnesium 2.4, white blood cell count 5.6, hemoglobin 11.4 , hematocrit 36.6, platelets of 278. ASSESSMENT AND PLAN: 1. Status post repair of incarcerated left inguinal hernia/small bowel obstruction. The patient con tinues to improve slowly, but tolerating diet, having bowel movements and minimal pain. We will cont inue with current treatment plan. 2. Paroxysmal atrial fibrillation/hypertension. Stable, although the patient is not therapeutic, we will continue the Lovenox and the warfarin, but given extra dose of 5 mg on the warfarin today for a total of 10 mg. 3. Debility. The patient will need ongoing physical and occupational therapy and anticipated transf er to a intermediate facility soon when bed becomes available. 4. Asthma, stable. Continue with medications. 5. Depression/anxiety, stable. Continue with medications. 6. Urinary tract infection, resolved. Awaiting repeat urine culture, but no need for further antibi otics. Dictated By: NADEEM HAMILTON MD SR/NTS Conf#: [id number] DID#: [id number] CC: KARRIE WEST MD; NADEEM HAMILTON MD;*End*
--- NOTE | 2018-09-20 13:07 | CONS ---
Assessment/Plan Assessment/Plan Hospital Course (Demo Recall) Preoperative cardiac risk stratification Small bowel obstruction with incarcerated hernia as per surgery status post surgery 09/10/2018 Paroxysmal atrial fibrillation, currently sinus rhythm Preserved left ventricular ejection fraction History of pacemaker Doing well status post surgery Heart rate trend overall remained stable on current dose of Cardizem. Coumadin as per INR DC planning Consultation Date/Type/Reason Admit Date/Time September 07, 2018 at 18:28 Initial Consult Date 09/09/18 Type of Consult Cardiology Requesting Provider: NADEEM HAMILTON MD- Date/Time of Note DATE: 09/20/18 TIME: 13:06 24 HR Interval Summary Free Text/Dictation Denies shortness of breath, palpitations, having occasional sharp pain in her left axilla with arm movements Exam/Review of Systems Vital Signs Vitals Vital Signs Date Temp Pulse Resp B/P (MAP) Pulse Ox O2 O2 Flow FiO2 Time Delivery Rate 09/20/18 60 12:47 09/20/18 97.7 18 134/63 99 Nasal 2.0 11:00 (86) Cannula Intake and Output 09/19/18 09/19/18 09/20/18 1515:00 23:00 07:00 IntakeIntake Total 500 ml OutputOutput Total 250 ml BalanceBalance 250 ml Exam Constitutional: alert, oriented (No apparent distress) Head: normocephalic Respiratory: clear to auscultation, normal air movement Cardiovascular: regular rate and rhythm (S1-S2 heard) Gastrointestinal: soft, non-tender, bowel sounds Extremities: other (No significant edema) Labs Result Diagram: 09/20/18 0526 09/20/18 0526 Results 24hrs Laboratory Tests Test 09/20/18 05:26 White Blood Count 5.6 Red Blood Count 4.04 L Hemoglobin 11.4 L Hematocrit 36.6 L Mean Corpuscular Volume 90.6 Mean Corpuscular Hemoglobin 28.2 L Mean Corpuscular Hemoglobin Concent 31.1 L Red Cell Distribution Width 14.0 Platelet Count 278 Mean Platelet Volume 10.5 H Immature Granulocytes % 0.500 H Neutrophils % 51.4 Lymphocytes % 34.2 Monocytes % 9.4 Eosinophils % 3.4 Basophils % 1.1 Nucleated Red Blood Cells % 0.0 Immature Granulocytes # 0.030 Neutrophils # 2.9 Lymphocytes # 1.9 Monocytes # 0.5 Eosinophils # 0.2 Basophils # 0.1 Nucleated Red Blood Cells # 0.0 Prothrombin Time 17.1 H Prothrombin Time Ratio 1.3 INR International Normalized Ratio 1.38 Sodium Level 141 Potassium Level 4.4 Chloride Level 108 Carbon Dioxide Level 30 Anion Gap 3 L Blood Urea Nitrogen 13 Creatinine 0.46 Est Glomerular Filtrat Rate mL/min Glucose Level 87 Calcium Level 10.2 Magnesium Level 2.4 Total Bilirubin 0.3 Direct Bilirubin 0.00 Indirect Bilirubin 0.3 Aspartate Amino Transf (AST/SGOT) 22 Alanine Aminotransferase (ALT/SGPT) 27 Alkaline Phosphatase 62 Total Protein 5.8 L Albumin 3.3 Globulin 2.50 Albumin/Globulin Ratio 1.32 Medications Medications Current Medications Cyclosporine (Restasis) 1 drop BID BOTH EYES Last administered on 09/20/18 07:29; Admin Dose 1 DROP; Start 09/07/18 at 21:00 Ondansetron HCl (Zofran Inj) 4 mg Q6H PRN IV NAUSEA AND/OR VOMITING Last administered on 09/09/18 03:53; Admin Dose 4 MG; Start 09/07/18 at 21:30 Hydralazine HCl (Apresoline) 5 mg Q6H PRN IV SBP>160 OR DBP>100 Last administered on 09/09/18 21:31; Admin Dose 5 MG; Start 09/07/18 at 21:30 Mometasone Furoate (Asmanex) 1 puff BID RESP THERAPY INH Last administered on 09/20/18 07:31; Admin Dose 1 PUFF; Start 09/08/18 at 20:00 Levalbuterol (Xopenex Neb) 0.63 mg Q6H RESP THERAPY PRN HHN sob or wheezing L ast administered on 09/19/18 13:03; Admin Dose 0.63 MG; Start 09/08/18 at 12:30 Lorazepam (Ativan) 0.25 mg Q8H PRN IV Anxiety Last administered on 09/09/18 03:54; Admin Dose 0.25 MG; Start 09/09/18 at 04:00 Acetaminophen (Tylenol Tab) 1,000 mg Q6H PRN PO MILD PAIN(1-3)OR ELEVATED TEMP Last administered on 09/13/18 00:02; Admin Dose 1,000 MG; Start 09/10/18 at 18:00 Sertraline HCl (Zoloft) 25 mg DAILY PO Last administered on 09/20/18 07:30; Admin Dose 25 MG; Start 09/11/18 at 09:00 Famotidine (Pepcid) 20 mg DAILY PO Last administered on 09/20/18 07:29; Admin Dose 20 MG; Start 09/12/18 at 09:00 Amylase/Lipase/ Protease (Creon ([id number])) 1 cap WITH MEALS PO Last administered on 09/20/18 11:54; Admin Dose 1 CAP; Start 09/12/18 at 18:00 Diltiazem HCl (Cardizem Iv) 10 mg Q6 PRN IV sustained hr>130; Start 09/12/18 at 15:30 Diltiazem HCl (Cardizem) 30 mg TID PO Last administered on 09/20/18 11:54; Admin Dose 30 MG; Start 09/12/18 at 21:00 Digoxin (Digoxin) 0.125 mg DAILY@13 PO Last administered on 09/20/18 11:53; Admin Dose 0.125 MG; Start 09/13/18 at 13:00 Morphine Sulfate (morphine) 1 mg Q4H PRN IV Breakthrough PAIN Last administered on 09/19/18 13:00; Admin Dose 1 MG; Start 09/13/18 at 00:00 Acetaminophen/ Hydrocodone Bitart ([place] (5/325)) 1 tab Q4H PRN PO MODERATE PAIN LEVEL 4-6 Last administered on 09/16/18 16:41; Admin Dose 1 TAB; Start 09/13/18 at 00:00 Sodium Phosphate (Neutra-Phos) 250 mg BID PO Last administered on 09/20/18 07:28; Admin Dose 250 MG; Start 09/13/18 at 09:00 Warfarin Sodium (Coumadin) 5 mg DAILY@17 PO Last administered on 09/19/18 17:26; Admin Dose 5 MG; Start 09/13/18 at 17:00 Enoxaparin Sodium (Lovenox) 50 mg DAILY SC Last administered on 09/20/18 08:04; Admin Dose 50 MG; Start 09/13/18 at 09:30 Warfarin Sodium (Coumadin) 5 mg ONCE@17 ONCE PO ; Start 09/20/18 at 17:00; Stop 09/20/18 at 17:01 Jones Long DO September 20, 2018 13:06
--- NOTE | 2018-09-20 15:16 | PN ---
Date/Time of Note Date/Time of Note DATE: 09/20/18 TIME: 15:04 Assessment/Plan Lines/Catheters IV Catheter Type (from Nrsg): Saline Lock Simons in Place (from Nrsg): No Assessment/Plan Chief Complaint/Hosp Course 1. Left inguinal hernia with incarcerated small bowel however has reduced. Small bowel obstruction secondary to hernia > resolved on imaging and clini jovon. s/p Open LIHR c mesh 09/10. -Diet as tolerated -Ambulate as able> continue with physical therapy -ice pack to abdomen as needed for pain -minimize narcotics -dc ok from surgical standpoint> agree with long term facility> will need f/u appointment with our service in 2 weeks (pt to call and make an appt) 2. Right inguinal hernia reducible however symptomatic. -Recommend staged operation to repair this at a later time > outpt f/u 3. Iatrogenic coagulopathy secondary to Coumadin use improving after reversal 4. Paroxysmal A. fib, sick sinus syndrome, hypertension -Electrolyte optimization -Cardiac optimization -Nutrition and medication optimization 5. UTI status post antibiotics -Encourage frequent bladder emptying thank you. Patient seen and examined in collaboration with Dr. Honorio Gamboa. Subjective 24 Hr Interval Summary + bowel function. No fevers, chills, sob, congested cough, cp, palpitations, steiner, dizziness, n/v/d/dysuria. Exam/Review of Systems Vital Signs Vitals Vital Signs Date Temp Pulse Resp B/P (MAP) Pulse Ox O2 O2 Flow FiO2 Time Delivery Rate 09/20/18 60 12:47 09/20/18 97.7 18 134/63 99 Nasal 2.0 11:00 (86) Cannula Intake and Output 09/19/18 09/19/18 09/20/18 1515:00 23:00 07:00 IntakeIntake Total 500 ml OutputOutput Total 250 ml BalanceBalance 250 ml Exam Free Text/Dictation Constitutional: No oriented, No distress Psych: Anxious intermittently Head: normocephalic, atraumatic Eyes: nl conjunctiva, EOMI, PERRL; No icteric ENMT: nl external ears & nose; nl lips & teeth Neck: supple, non-tender; No jvd Respiratory: normal air movement; No congested cough, No labored breathing Cardiovascular: regular rate and rhythm; No edema Gastrointestinal: soft, min tender, no erythema,, left lower quadrant incision site dry without drainage/discoloration/bruising No rebound or guarding Musculoskeletal: nl extremities to inspection; No joint tenderness Extremities: normal pulses; No calf tenderness, No edema Neurological: nl speech, nl strength Skin: nl turgor; No rash or lesions, No diaphoresis Lymph: nl lymph nodes Results Result Diagram: 09/20/18 0526 09/20/18 0526 DOMINGA BONILLA NP September 20, 2018 15:15
[2018-09-20] MEDS: WARFARIN 5 MG TAB PO SCH (16:38)
[2018-09-20] MEDS ORDERED: WARFARIN 5 MG TAB PO ONE (17:00)
== END 2018-09-20 21:20 | DRG 351 ==
LOC: E/R 14:53 → 6WM 18:28
PROVIDERS: ADMIT Internal Medicine; ATTEND Internal Medicine
PROC: 0YU60JZ Supplement Left Inguinal Region with Synthetic Substitute, Open Approach (ICD-10-PCS; principal; 2018-09-10 13:30)
DX: K40.30 Unilateral inguinal hernia, with obstruction, without gangrene, not specified as recurrent (principal); N39.0 Urinary tract infection, site not specified; D68.9 Coagulation defect, unspecified; K56.609 Unspecified intestinal obstruction, unspecified as to partial versus complete obstruction; R44.3 Hallucinations, unspecified; E83.39 Other disorders of phosphorus metabolism; I48.91 Unspecified atrial fibrillation; J44.9 Chronic obstructive pulmonary disease, unspecified; I49.5 Sick sinus syndrome; K21.9 Gastro-esophageal reflux disease without esophagitis; F41.9 Anxiety disorder, unspecified; F32.9 Major depressive disorder, single episode, unspecified; Z95.0 Presence of cardiac pacemaker; Z79.01 Long term (current) use of anticoagulants
CPT/HCPCS: 36415; 71045; 74018; 74176; 80048; 80053; 80162; 81001; 83690; 83735; 84100; 84484; 85025; 85610; 85730; 87081; 87086; 93005; 93306; 94640; 96374; 96375; 96376; 97110; 97116; 97162; 97530; C1781; J0360; J1650; J2001; J2060; J2185; J2270; J2405; J2795; J3010; J3475; J3480; J7030

== ENCOUNTER 2018-12-17 07:52 | Inpatient (IN) | payer BC ==
[2018-12-17] VITALS (24 sets, daily range): BP systolic 102–174; BP diastolic 45–82; PULSE 60–68; RESP 11–25; Ht 160 cm; Wt 49.7 kg
[~2018-12-17] VITALS: Ht 160 cm; Wt 49.7 kg
[~2018-12-17 07:52] MED LIST changes: +AZEL23SP NASAL; -CHOL100062 PO; -CHOL200018 PO; +CIPR-193 PO; +DIGO125T PO; +DILT30TA30 ORAL; +ERGO80009 PO; +LORA-186 PO; -LORA-52 PO; -MAGN400T27 PO; -OMEG-135 PO; -POLY17PO6 PO; +POTA20LI15 PO; +SERT50TA6 PO; -[UNRECOGNIZED DRUG - OTHER] PO
[2018-12-17] MEDS: LACTATED RINGER'S 1,000 ML IV SCH ×2 (09:00→21:05)
[2018-12-17] MEDS ORDERED: POLYMYXIN/BACITRACIN 1L IRRIG ONE (09:24)
[2018-12-17] MEDS ORDERED: LIDOCAINE 1% (MPF) 30 ML INJ ONE (09:24)
[2018-12-17] MEDS ORDERED: BUPIVACAINE 0.25%/EPI (SDV) 10 ML INJ ONE (09:24)
[2018-12-17] MEDS ORDERED: SEVOFLURANE 15 MIN ONE (11:00)
[2018-12-17] MEDS ORDERED: FENTAnyl 50 MCG/ML VIAL ONE (11:11)
[2018-12-17] MEDS ORDERED: PROPOFOL 20 ML ONE (11:11)
[2018-12-17] MEDS ORDERED: ONDANSETRON 4 MG INJ ONE (11:13)
[2018-12-17] MEDS ORDERED: DEXAMETHASONE 4 MG/ML 5 ML INJ ONE (11:13)
[2018-12-17] MEDS ORDERED: ONDANSETRON 4 MG INJ IV PRN ×2 (11:30→14:00)
[2018-12-17] MEDS ORDERED: FENTAnyl 50 MCG/ML VIAL IV PRN (11:30)
[2018-12-17] MEDS ORDERED: MEPERIDINE 25 MG INJ IV PRN (11:30)
[2018-12-17] MEDS ORDERED: CLINDAMYCIN 600 MG/D5W (PMX) 50 ML IVPB ONE (12:10)
[2018-12-17] MEDS ORDERED: PHENYLephrine (100 MCG/ML) 10ML SYG ONE (12:11)
[2018-12-17] MEDS ORDERED: hydrALAzine 20 MG INJ IV PRN (13:30)
[2018-12-17] MEDS ORDERED: PANTOPRAZOLE 40 MG INJ IV ONE (13:30)
[2018-12-17] MEDS ORDERED: LEVALBUTEROL (NEB) 0.63 MG/3 ML AMP HHN PRN (13:30)
[2018-12-17] MEDS ORDERED: FAMOTIDINE 20 MG INJ ONE (14:36)
[2018-12-17] MEDS: WARFARIN 5 MG TAB GTB SCH (16:24)
[2018-12-17] MEDS: DILTIAZEM 30 MG TAB PO SCH (17:49)
[2018-12-17] MEDS: morphine 2 MG INJ IV PRN ×2 (17:49→21:18)
[2018-12-17] MEDS: MOMETASONE 0.24 GM INHALER INH SCH (21:04)
[2018-12-17] MEDS: CYCLOSPORINE 0.05% OPH DROPERETTE BOTH EYES SCH (21:04)
[2018-12-17] MEDS: MONTELUKAST 10 MG TAB PO SCH (21:04)
[2018-12-18 00:13] VITALS: BP 126/61; PULSE 60; RESP 18
[2018-12-18] MEDS: DILTIAZEM 30 MG TAB PO SCH ×5 (00:19→23:03)
[2018-12-18] MEDS: morphine 2 MG INJ IV PRN ×4 (03:38→23:04)
[2018-12-18 05:56] VITALS: BP 124/58; PULSE 60; RESP 18
[2018-12-18 07:31] VITALS: BP 119/57; PULSE 57; RESP 18
[2018-12-18] MEDS: LORATADINE 10 MG TAB PO SCH (08:45)
[2018-12-18] MEDS: CREON PO SCH ×3 (08:45→17:25)
[2018-12-18] MEDS: CYCLOSPORINE 0.05% OPH DROPERETTE BOTH EYES SCH ×2 (08:46→20:26)
[2018-12-18] MEDS: PANTOPRAZOLE (EC) 40 MG TAB PO SCH (09:37)
[2018-12-18] MEDS: MOMETASONE 0.24 GM INHALER INH SCH ×2 (09:37→20:26)
[2018-12-18] MEDS: ACETAMINOPHEN 325 MG TAB PO PRN (11:50)
[2018-12-18] MEDS: DIGOXIN 0.125 MG TAB PO SCH (12:37)
[2018-12-18 14:42] VITALS: BP 117/56; PULSE 60; RESP 18
[2018-12-18] MEDS: WARFARIN 5 MG TAB GTB SCH (17:25)
[2018-12-18 19:20] VITALS: BP 123/56; PULSE 60; RESP 16
[2018-12-18] MEDS: MONTELUKAST 10 MG TAB PO SCH (20:26)
[2018-12-18] MEDS: SERTRALINE 50 MG TAB PO SCH (23:03)
[2018-12-18 23:09] VITALS: BP 144/66; PULSE 66; RESP 18
[2018-12-19] MEDS: morphine 2 MG INJ IV PRN ×2 (03:47→13:11)
[2018-12-19] MEDS: PANTOPRAZOLE (EC) 40 MG TAB PO SCH (05:26)
[2018-12-19] MEDS: DILTIAZEM 30 MG TAB PO SCH ×4 (05:27→23:38)
[2018-12-19 08:22] VITALS: BP 155/68; PULSE 60; RESP 18
[2018-12-19] MEDS: CREON PO SCH ×3 (08:28→18:10)
[2018-12-19] MEDS: LORATADINE 10 MG TAB PO SCH (08:29)
[2018-12-19] MEDS: CYCLOSPORINE 0.05% OPH DROPERETTE BOTH EYES SCH ×2 (08:29→20:33)
[2018-12-19] MEDS: MOMETASONE 0.24 GM INHALER INH SCH ×2 (08:30→20:32)
[2018-12-19] MEDS: LACTATED RINGER'S 1,000 ML IV SCH ×2 (09:00→13:17)
[2018-12-19] MEDS: DIGOXIN 0.125 MG TAB PO SCH (13:11)
[2018-12-19 15:53] VITALS: BP 153/65; PULSE 63; RESP 18
[2018-12-19] MEDS: WARFARIN 5 MG TAB GTB SCH (18:10)
[2018-12-19 19:40] VITALS: BP 139/63; PULSE 61; RESP 18
[2018-12-19] MEDS: MONTELUKAST 10 MG TAB PO SCH (20:32)
[2018-12-19] MEDS: SERTRALINE 50 MG TAB PO SCH (20:32)
[2018-12-20] MEDS: ACETAMINOPHEN 325 MG TAB PO PRN ×4 (01:18→20:42)
[2018-12-20 01:29] VITALS: BP 144/65; PULSE 61; RESP 18
[2018-12-20] MEDS: DILTIAZEM 30 MG TAB PO SCH ×3 (05:17→18:39)
[2018-12-20] MEDS: PANTOPRAZOLE (EC) 40 MG TAB PO SCH (05:19)
[2018-12-20 07:30] VITALS: BP 138/60; PULSE 60; RESP 18
[2018-12-20] MEDS ORDERED: MAGNESIUM HYDROXIDE 30ML CUP PO ONE (08:30)
[2018-12-20] MEDS: CIPROFLOXACIN 250 MG TAB PO SCH ×2 (08:35→18:38)
[2018-12-20] MEDS: CREON PO SCH ×3 (08:55→17:45)
[2018-12-20] MEDS: CYCLOSPORINE 0.05% OPH DROPERETTE BOTH EYES SCH ×2 (09:00→20:32)
[2018-12-20] MEDS: MOMETASONE 0.24 GM INHALER INH SCH ×2 (09:27→21:21)
[2018-12-20] MEDS: LORATADINE 10 MG TAB PO SCH (09:27)
[2018-12-20] MEDS: DIGOXIN 0.125 MG TAB PO SCH (13:32)
[2018-12-20 14:36] VITALS: BP 123/60; PULSE 60; RESP 18
[2018-12-20] MEDS ORDERED: CIPROFLOXACIN 250 MG TAB PO SCH (18:00)
[2018-12-20] MEDS: WARFARIN 5 MG TAB GTB SCH (18:38)
[2018-12-20 19:30] VITALS: BP 123/58; PULSE 60; RESP 18
[2018-12-20] MEDS: SERTRALINE 50 MG TAB PO SCH (20:37)
[2018-12-20] MEDS: MONTELUKAST 10 MG TAB PO SCH (20:37)
[2018-12-21 02:30] VITALS: BP 142/64; PULSE 60; RESP 18
[2018-12-21] MEDS: CIPROFLOXACIN 250 MG TAB PO SCH ×2 (05:37→17:35)
[2018-12-21] MEDS: DILTIAZEM 30 MG TAB PO SCH ×5 (05:37→23:01)
[2018-12-21] MEDS: PANTOPRAZOLE (EC) 40 MG TAB PO SCH (05:39)
[2018-12-21 07:47] VITALS: BP 157/65; PULSE 61; RESP 14
[2018-12-21] MEDS: LACTATED RINGER'S 1,000 ML IV SCH (09:00)
[2018-12-21] MEDS ORDERED: MAGNESIUM HYDROXIDE 30ML CUP PO PRN (09:00)
[2018-12-21] MEDS ORDERED: BISACODYL 10 MG SUPP PR PRN (09:00)
[2018-12-21] MEDS: CYCLOSPORINE 0.05% OPH DROPERETTE BOTH EYES SCH ×2 (09:10→21:13)
[2018-12-21] MEDS: MOMETASONE 0.24 GM INHALER INH SCH ×2 (09:10→21:14)
[2018-12-21] MEDS: CREON PO SCH ×3 (09:10→17:35)
[2018-12-21] MEDS: LORATADINE 10 MG TAB PO SCH (09:10)
[2018-12-21] MEDS: DIGOXIN 0.125 MG TAB PO SCH (12:35)
[2018-12-21] MEDS: ACETAMINOPHEN 500 MG TAB PO PRN (13:34)
[2018-12-21] MEDS: WARFARIN 5 MG TAB GTB SCH (17:35)
[2018-12-21 19:40] VITALS: BP 126/60; PULSE 60; RESP 18
[2018-12-21] MEDS: MONTELUKAST 10 MG TAB PO SCH (21:13)
[2018-12-21] MEDS: SERTRALINE 50 MG TAB PO SCH (21:13)
[2018-12-22] MEDS: ACETAMINOPHEN 500 MG TAB PO PRN ×2 (00:58→09:23)
[2018-12-22 01:35] VITALS: BP 144/61; PULSE 60; RESP 18
[2018-12-22] MEDS: DILTIAZEM 30 MG TAB PO SCH ×4 (05:23→23:35)
[2018-12-22] MEDS: PANTOPRAZOLE (EC) 40 MG TAB PO SCH ×2 (05:23→20:40)
[2018-12-22] MEDS: CIPROFLOXACIN 250 MG TAB PO SCH ×2 (05:23→17:50)
[2018-12-22 07:28] VITALS: BP 134/70; PULSE 62; RESP 16
[2018-12-22] MEDS: LACTATED RINGER'S 1,000 ML IV SCH (08:21)
[2018-12-22] MEDS: CYCLOSPORINE 0.05% OPH DROPERETTE BOTH EYES SCH ×2 (08:23→20:34)
[2018-12-22] MEDS: MOMETASONE 0.24 GM INHALER INH SCH ×2 (08:23→20:31)
[2018-12-22] MEDS: LORATADINE 10 MG TAB PO SCH (08:23)
[2018-12-22] MEDS: CREON PO SCH ×3 (08:23→17:50)
[2018-12-22 12:30] VITALS: BP 143/66; PULSE 60; RESP 17
[2018-12-22] MEDS: DIGOXIN 0.125 MG TAB PO SCH (12:54)
[2018-12-22 14:35] VITALS: BP 139/60; PULSE 60; RESP 18
[2018-12-22] MEDS: WARFARIN 5 MG TAB GTB SCH (17:50)
[2018-12-22 18:39] VITALS: BP 143/65; PULSE 65; RESP 18
[2018-12-22] MEDS: SERTRALINE 50 MG TAB PO SCH (20:31)
[2018-12-22] MEDS: MONTELUKAST 10 MG TAB PO SCH (20:31)
[2018-12-22] MEDS ORDERED: ZOLPIDEM 5 MG TAB PO PRN (22:45)
[2018-12-23 02:20] VITALS: BP 130/60; PULSE 60; RESP 18
[2018-12-23] MEDS: CIPROFLOXACIN 250 MG TAB PO SCH ×2 (06:45→17:28)
[2018-12-23] MEDS: DILTIAZEM 30 MG TAB PO SCH ×3 (06:47→17:29)
[2018-12-23 07:22] VITALS: BP 131/67; PULSE 62; RESP 18
[2018-12-23] MEDS: CYCLOSPORINE 0.05% OPH DROPERETTE BOTH EYES SCH ×2 (08:47→20:04)
[2018-12-23] MEDS: LORATADINE 10 MG TAB PO SCH (08:51)
[2018-12-23] MEDS: CREON PO SCH ×3 (08:51→17:29)
[2018-12-23] MEDS: MOMETASONE 0.24 GM INHALER INH SCH ×2 (08:51→20:03)
[2018-12-23 12:36] VITALS: BP 146/63; PULSE 60; RESP 18
[2018-12-23] MEDS: DIGOXIN 0.125 MG TAB PO SCH (13:11)
[2018-12-23 14:36] VITALS: BP 135/68; PULSE 66; RESP 18
[2018-12-23] MEDS: ACETAMINOPHEN 500 MG TAB PO PRN (15:34)
[2018-12-23] MEDS: WARFARIN 5 MG TAB GTB SCH (17:28)
[2018-12-23] MEDS ORDERED: GUAIFENESIN/DM 5ML CUP PO PRN (18:30)
[2018-12-23 20:02] VITALS: BP 118/58; PULSE 60; RESP 18
[2018-12-23] MEDS: SERTRALINE 50 MG TAB PO SCH (20:03)
[2018-12-23] MEDS: MONTELUKAST 10 MG TAB PO SCH (20:03)
[2018-12-23] MEDS: DOCUSATE SODIUM 100 MG CAP PO SCH (20:03)
[2018-12-23] MEDS: PANTOPRAZOLE (EC) 40 MG TAB PO SCH (20:16)
[2018-12-24 02:00] VITALS: BP 127/60; PULSE 59; RESP 18
[2018-12-24] MEDS: CIPROFLOXACIN 250 MG TAB PO SCH ×2 (05:41→17:37)
[2018-12-24] MEDS: DILTIAZEM 30 MG TAB PO SCH ×5 (05:42→23:16)
[2018-12-24 07:08] VITALS: BP 121/54; PULSE 64; RESP 19
[2018-12-24] MEDS: CYCLOSPORINE 0.05% OPH DROPERETTE BOTH EYES SCH ×2 (08:29→20:55)
[2018-12-24] MEDS: MOMETASONE 0.24 GM INHALER INH SCH ×2 (08:36→20:56)
[2018-12-24] MEDS: CREON PO SCH ×3 (08:36→17:37)
[2018-12-24] MEDS: LORATADINE 10 MG TAB PO SCH (08:36)
[2018-12-24] MEDS: DIGOXIN 0.125 MG TAB PO SCH (12:49)
[2018-12-24 16:23] VITALS: BP 124/62; PULSE 68; RESP 19
[2018-12-24] MEDS: WARFARIN 5 MG TAB GTB SCH (17:37)
[2018-12-24 19:21] VITALS: BP 144/66; PULSE 65; RESP 18
[2018-12-24] MEDS: DOCUSATE SODIUM 100 MG CAP PO SCH (20:57)
[2018-12-24] MEDS: MONTELUKAST 10 MG TAB PO SCH (20:57)
[2018-12-24] MEDS: SERTRALINE 50 MG TAB PO SCH (20:58)
[2018-12-25 01:52] VITALS: BP 132/68; PULSE 67; RESP 18
[2018-12-25] MEDS: ACETAMINOPHEN 500 MG TAB PO PRN (04:53)
[2018-12-25] MEDS: PANTOPRAZOLE (EC) 40 MG TAB PO SCH (05:03)
[2018-12-25] MEDS: CIPROFLOXACIN 250 MG TAB PO SCH (05:03)
[2018-12-25] MEDS: DILTIAZEM 30 MG TAB PO SCH ×2 (05:04→13:42)
[2018-12-25 08:15] VITALS: BP 141/64; PULSE 60; RESP 19
[2018-12-25] MEDS: MOMETASONE 0.24 GM INHALER INH SCH (08:42)
[2018-12-25] MEDS: CREON PO SCH ×2 (08:42→13:38)
[2018-12-25] MEDS: LORATADINE 10 MG TAB PO SCH (08:43)
[2018-12-25] MEDS: CYCLOSPORINE 0.05% OPH DROPERETTE BOTH EYES SCH (08:44)
[2018-12-25] MEDS: DIGOXIN 0.125 MG TAB PO SCH (13:42)
[2018-12-25 14:39] VITALS: BP 142/74; PULSE 61; RESP 20
== END 2018-12-25 16:29 | disposition home health service (06) | DRG 351 ==
LOC: SDS 07:52 → REC 13:43 → MS1 14:48
PROVIDERS: ADMIT Internal Medicine; ATTEND Surgery
PROC: 0WUF0JZ Supplement Abdominal Wall with Synthetic Substitute, Open Approach (ICD-10-PCS; 2018-12-17)
PROC: 0YU70JZ Supplement Right Femoral Region with Synthetic Substitute, Open Approach (ICD-10-PCS; principal; 2018-12-17 10:30)
DX: K43.9 Ventral hernia without obstruction or gangrene (principal); N39.0 Urinary tract infection, site not specified; K41.90 Unilateral femoral hernia, without obstruction or gangrene, not specified as recurrent; I48.0 Paroxysmal atrial fibrillation; Z79.01 Long term (current) use of anticoagulants; Z95.0 Presence of cardiac pacemaker; K21.9 Gastro-esophageal reflux disease without esophagitis; J45.998 Other asthma; J31.0 Chronic rhinitis; M35.00 Sjogren syndrome, unspecified; F32.9 Major depressive disorder, single episode, unspecified; D64.9 Anemia, unspecified
CPT/HCPCS: 71045; 80048; 80053; 81001; 83735; 85025; 85610; 85730; 87086; 88302; 93005; 97110; 97116; 97161; 97530; C1781; C9113; J1100; J2270; J2370; J2405; J3010; J7120